=== PATIENT | female | born 1945 | race Caucasian/White ===

== ENCOUNTER 2016-03-04 14:38 | Emergency (ER) | payer MEDICARE, OTHER ==
--- NOTE | 2016-03-04 15:11 | ERPHSYRPT ---
- History of Present Illness Time Seen by Provider: 03/04/16 15:04 Source: patient Exam Limitations: no limitations Patient Subjective Stated Complaint: PT REPORTS N/V/D BEGINNING SATURDAY-REPORTS HEADACHE BEGINNING PATRICIA SAME TIME-STATES SHE HASN'T KEPT ANYTHING DOWN Triage Nursing Assessment: PT PINK WARM ET DRY-A & O-MOVING ALL EXTREMITIES WITH EASE-RESP EASY ET NONLABORED Physician History: The patient is a 70-year-old female who complains of nausea vomiting and diarrhea for 2 days. She also has a FALL. At times the pt is light-headed. Her grandchildren were also sick with similar symptoms earlier in the week. She thinks she caught it from them. Now her is also sick with similar symptoms. She has vomited numerous times yesterday and today. She had diarrhea yesterday but it has slowed down significantly today. She has not taken any of her medicines yesterday or today because of the vomiting. She has not been able to eat or drink much. Her past medical history is significant for hypothyroidism, hyper cholesterolemia, hypertension, and diabetes. Timing/Duration: day(s) (2), sudden Severity: severe Modifying Factors: Improves With: eating Associated Symptoms: nausea, vomiting, headaches Allergies/Adverse Reactions: No Known Drug Allergies Allergy (Unverified 03/04/16 14:48) Home Medications: Amlodipine Besylate 10 mg [Norvasc 10 MG] 10 mg PO DAILY 03/04/16 [History] Aspirin 81 mg PO DAILY 03/04/16 [History] Budesonide/Formoterol Fumarate [Symbicort 80-4.5 Mcg Inhaler] 6.9 gm IH UD 03/04 [History] Codeine/Butalbital/ASA/Caffein [Butalbital Comp-Codeine #3 Cap] 1 each PO UD 10/11 [History] Cyclobenzaprine HCl 10 mg PO UD 03/04/16 [History] Docusate Sodium 100 mg [Colace 100 MG] 100 mg PO BID 03/04/16 [History] Estradiol [Estrace] 0.5 mg PO DAILY 03/04/16 [History] Fluoxetine HCl [Prozac] 20 mg PO DAILY 03/04/16 [History] Glipizide 10 mg [Glucotrol 10 MG] 10 mg PO DAILY 03/04/16 [History] Isosorbide Mononitrate 30 mg [Imdur 30 MG] 30 mg PO DAILY 03/04/16 [History ] Levothyroxine Sodium [Synthroid] 125 mcg PO DAILY 03/04/16 [History] Meloxicam 7.5 mg [Mobic 7.5 MG] 7.5 mg PO UD 03/04/16 [History] Metformin HCl Xr 500 mg [Glucophage XR 500 MG] 500 mg PO DAILY 03/04/16 [ History] Metoprolol Tartrate 25 mg [Lopressor 25MG Tab] 25 mg PO DAILY 03/04/16 [ History] Polyethylene Glycol 3350 17 gm [Miralax Powder 17GM PACKET] 17 gm PO DAILY [History] Pregabalin [Lyrica] 75 mg PO BID 03/04/16 [History] Simvastatin 40 mg [Zocor 40 mg] 40 mg PO DAILY 03/04/16 [History] Tramadol HCl 50 mg [Ultram 50 mg] 50 mg PO UD 03/04/16 [History] Verapamil HCl Sr 240 mg [Isoptin S.r. 240 mg] 240 mg PO DAILY 03/04/16 [ History] Hx Tetanus, Diphtheria Vaccination/Date Given: No Hx Influenza Vaccination/Date Given: Yes Hx Pneumococcal Vaccination/Date Given: Yes Immunizations Up to Date: Yes - Review of Systems Constitutional: No Fever, No Chills Eyes: No Symptoms Ears, Nose, & Throat: No Symptoms Respiratory: No Cough, No Dyspnea Cardiac: No Chest Pain, No Edema, No Syncope Abdominal/Gastrointestinal: Nausea, Vomiting, Diarrhea Genitourinary Symptoms: No Dysuria Musculoskeletal: No Back Pain, No Neck Pain Skin: No Rash Neurological: No Dizziness, No Focal Weakness, No Sensory Changes Psychological: No Symptoms Endocrine: No Symptoms Hematologic/Lymphatic: No Symptoms Immunological/Allergic: No Symptoms All Other Systems: Reviewed and Negative - Past Medical History Pertinent Past Medical History: Yes Cardiac History: Hypertension, Myocardial Infarction (HI) Endocrine Medical History: Diabetes Type II - Past Surgical History Past Surgical History: Yes Cardiac: Cardiac Stent Musculoskeletal: Orthopedic Surgery Female Surgical History: Hysterectomy - Social History Smoking Status: Never smoker Exposure to second hand smoke: No Drug Use: none Patient Lives Alone: No - Nursing Vital Signs Nursing Vital Signs: Initial Vital Signs Temperature 97.9 F Temperature Source Oral Pulse Rate 85 Respiratory Rate 16 Blood Pressure 133/80 Pain Intensity 0 - Physical Exam General Appearance: no apparent distress, alert Eye Exam: PERRL/EOMI, eyes nml inspection Ears, Nose, Throat Exam: normal ENT inspection, TMs normal, pharynx normal, moist mucous membranes Neck Exam: normal inspection, non-tender, supple, full range of motion Respiratory Exam: normal breath sounds, lungs clear, No respiratory distress Cardiovascular Exam: regular rate/rhythm, normal heart sounds, normal peripheral pulses Gastrointestinal/Abdomen Exam: other (BS hyperactive) Pelvic Exam: not done Rectal Exam: not done Back Exam: normal inspection, normal range of motion, No CVA tenderness, No vertebral tenderness Extremity Exam: normal inspection, normal range of motion, pelvis stable Neurologic Exam: alert, oriented x 3, cooperative, normal mood/affect, nml cerebellar function, nml station & gait, sensation nml, No motor deficits Skin Exam: normal color, warm, dry, No rash Lymphatic Exam: No adenopathy SpO2 Interpretation: normal SpO2: 96 Oxygen Delivery: Room Air Ordered Tests: Active Orders 24 hr Category Date Time Status IV Insertion STAT Care 03/04/16 15:15 Active CBC W DIFF Stat Lab 03/04/16 15:25 Completed CMP Stat Lab 03/04/16 15:25 Completed UA W/ MICROSCOPIC Stat Lab 03/04/16 16:40 Results Medication Summary Discontinued Medications Generic Name Dose Route Start Last Admin Trade Name Bell PRN Reason Stop Dose Admin Sodium Chloride 1,000 mls @ 999 mls/hr 03/04/16 15:15 03/04/16 15:26 Sodium Chloride 0.9% 1000 Ml IV 03/04/16 16:15 999 mls/hr .Q1H1M STA Administration Sodium Chloride Confirm 03/04/16 15:23 Sodium Chloride 0.9% 1000 Ml Administered 03/04/16 15:24 Dose 1,000 mls @ ud .ROUTE .STK-MED ONE Ketorolac Tromethamine 15 mg 03/04/16 15:15 03/04/16 15:27 Toradol 30 Mg Injection IV 03/04/16 15:16 15 mg STAT ONE Administration Ketorolac Tromethamine Confirm 03/04/16 15:23 Toradol 30 Mg Injection Administered 03/04/16 15:24 Dose 30 mg .ROUTE .STK-MED ONE Ondansetron HCl 4 mg 03/04/16 15:15 03/04/16 15:26 Zofran 4 Mg/2 Ml Vial IV 03/04/16 15:16 4 mg STAT ONE Administration Ondansetron HCl Confirm 03/04/16 15:23 Zofran 4 Mg/2 Ml Vial Administered 03/04/16 15:24 Dose 4 mg .ROUTE .STK-MED ONE Lab/Rad Data: Laboratory Result Diagrams 03/04/16 15:25 03/04/16 15:25 Laboratory Results 03/04/16 03/04/16 03/04/16 Range/Units 16:40 15:25 15:25 WBC 10.5 (4.0-10.5) K/mm3 RBC 4.75 (4.1-5.4) M/mm3 Hgb 14.0 (12.0-16.0) gm/dl Hct 43.4 (35-47) % MCV 91.4 (78-100) fl MCH 29.5 (26-32) pg MCHC 32.3 (32-36) g/dl RDW 13.9 (11.5-14.0) % Plt Count 153 (150-450) K/mm3 MPV 12.9 H (6-9.5) fl Gran % 72.6 H (36.0-66.0) % Lymphocytes % 14.2 L (24.0-44.0) % Monocytes % 12.9 H (0.0-12.0) % Eosinophils % 0.2 (0.00-5.0) % Basophils % 0.1 (0.0-0.4) % Basophils # 0.01 (0-0.4) Sodium 139 (136-145) mEq/L Potassium 3.7 (3.5-5.1) mEq/L Chloride 101 (98-107) mEq/L Carbon Dioxide 27.9 (21-32) mEq/L Anion Gap 14.1 (5-15) MEQ/L BUN 24 H (9-20) mg/dL Creatinine 1.17 (0.55-1.30) mg/dl Estimated GFR 48 ML/MIN Glucose 122 H (70-110) MG/DL Calcium 8.7 (8.5-10.1) mg/dL Total Bilirubin 0.4 (0.2-1.0) mg/dL AST 30 (15-37) U/L ALT 27 (12-78) U/L Alkaline Phosphatase 56 (46-116) U/L Serum Total Protein 7.9 (6.4-8.2) gm/dL Albumin 4.2 (3.4-5.0) g/dL Ur Collection Type CLEAN CATCH Urine Color YELLOW (YELLOW) Urine Appearance CLEAR (CLEAR) Urine pH 6.0 (5-6) Ur Specific [place] 1.020 (1.005-1.025) Urine Protein NEGATIVE (Negative) Urine Glucose (UA) NEGATIVE (NEGATIVE) mg/dL Urine Ketones NEGATIVE (NEGATIVE) Urine Nitrite NEGATIVE (NEGATIVE) Urine Bilirubin NEGATIVE (NEGATIVE) Urine Urobilinogen 0.2 (0-1) mg/dL Urine WBC (Auto) MODERATE (NEGATIVE) Urine RBC (Auto) TRACE HEMOLYZED (0-5) Gabriele/ul Urine Microscopic WBC 5-10 (0-5) /HPF Ur Epithelial Cells FEW (FEW) /HPF Urine Bacteria FEW (NEGATIVE) /HPF Specimen Received 03/04/16:1640 - Progress Progress: improved Progress Note: 03/04/16 16:58 After NS 1000 ml and zofran 4 mg IV, pt is feeling better. Counseled pt/family regarding: lab results, diagnosis - Departure Time of Disposition: 17:01 Departure Disposition: Home Clinical Impression: Gastroenteritis Condition: Stable Critical Care Time: No Additional Instructions: If nausea and/or vomiting returns tonight, you may take another zofran that we have sent home with you.
[2016-03-04] MEDS ORDERED: TORAdol 30 mg Injection IV ONE (15:15)
[2016-03-04] MEDS ORDERED: Zofran 4 MG/2 ML VIAL IV ONE ×2 (15:15→16:58)
[2016-03-04] MEDS ORDERED: Sodium Chloride 0.9% 1000 ML 1,000 ML IV STA (15:15)
[2016-03-04] MEDS ORDERED: TORAdol 30 mg Injection ONE (15:23)
[2016-03-04] MEDS ORDERED: Sodium Chloride 0.9% 1000 ML 1,000 ML ONE (15:23)
[2016-03-04] MEDS ORDERED: Zofran 4 MG/2 ML VIAL ONE ×2 (15:23→16:58)
[2016-03-04 15:31] LABS: BASOPHIL % 0.1 % (0.0-0.4); Eosinophil % 0.2 % (0.00-5.0); Granulocytes % 72.6 % (36.0-66.0); Lymphocytes % 14.2 % (24.0-44.0); Mean Cell Volume 91.4 fl (78-100); Mean Corpuscular Hemoglobin 29.5 pg (26-32); Mean Platelet Volume 12.9 fl (6-9.5); Monocytes % 12.9 % (0.0-12.0); Platelet Count 153 K/mm3 (150-450); Red Blood Count 4.75 M/mm3 (4.1-5.4); Red Cell Distribution Width 13.9 % (11.5-14.0); White Blood Count 10.5 K/mm3 (4.0-10.5)
[2016-03-04 15:55] LABS: ALBUMIN 4.2 g/dL (3.4-5.0); ANION GAP 14.1 MEQ/L (5-15); BILIRUBIN,TOTAL 0.4 mg/dL (0.2-1.0); Carbon Dioxide 27.9 mEq/L (21-32); Potassium 3.7 mEq/L (3.5-5.1); Total Protein 7.9 gm/dL (6.4-8.2)
[2016-03-04 16:50] LABS: COMPLETE URINE MICROSCOPIC? YES; Collection Type CLEAN CATCH
[2016-03-04 16:51] LABS: Bacteria FEW /HPF (NEGATIVE); Epithelial Cells FEW /HPF (FEW)
[2016-03-04] MEDS ORDERED: ZOFRAN ODT 4 MG PO ONE (16:59)
[2016-03-04] MEDS ORDERED: ZOFRAN ODT 4 MG ONE (17:01)
[2016-03-04 17:11] VITALS: BP 129/70; PULSE 79; O2SAT 97
== END 2016-03-04 17:10 | disposition home or self-care (01) ==
LOC: ED 14:38
DX: K52.9 Noninfective gastroenteritis and colitis, unspecified (principal); R51 Headache; R11.2 Nausea with vomiting, unspecified; R19.7 Diarrhea, unspecified; I10 Essential (primary) hypertension; I25.2 Old myocardial infarction; E11.9 Type 2 diabetes mellitus without complications
CPT/HCPCS: 36000; 36415; 80053; 81000; 85025; 96360; 96374; 96375; 99283; J1885; J2405; Q0162

== ENCOUNTER 2016-12-15 13:32 | Emergency (ER) | payer MEDICARE, OTHER ==
[2016-12-15 13:52] VITALS: PULSE 82
[2016-12-15 14:27] LABS: Collection Type CCMS
[2016-12-15 14:28] LABS: Bilirubin NEGATIVE (NEGATIVE); Blood 50 Ery/ul (0-5); COMPLETE URINE MICROSCOPIC? YES; Glucose NEGATIVE (NEGATIVE); Leukocyte Esterase TRACE (NEGATIVE)
[2016-12-15 14:29] LABS: BASOPHIL % 0.3 % (0.0-0.4); Eosinophil % 0.3 % (0.00-5.0); Granulocytes % 82.2 % (36.0-66.0); Lymphocytes % 8.5 % (24.0-44.0); Mean Cell Volume 92.3 fl (78-100); Mean Corpuscular Hemoglobin 30.5 pg (26-32); Mean Platelet Volume 12.3 fl (6-9.5); Monocytes % 8.7 % (0.0-12.0); Platelet Count 188 K/mm3 (150-450); Red Blood Count 4.69 M/mm3 (4.1-5.4); Red Cell Distribution Width 13.2 % (11.5-14.0); White Blood Count 11.2 K/mm3 (4.0-10.5)
--- NOTE | 2016-12-15 14:36 | ERPHSYRPT ---
- History of Present Illness Time Seen by Provider: 12/15/16 13:42 Source: patient Patient Subjective Stated Complaint: PT states "I have been constipated for the past three days. I usually go every other day and now my stomach hurts and I am straining so hard and still cannot go. I have taken suppository and senokot last night and still nothing." Triage Nursing Assessment: Pt alert and oriented X 3, skin pwd. Pt ambulates with a steady upright gait, able to speak in clear full sentences. Physician History: CC: constipation Hx: 71 y/o patient of Dr moreno with hx of hypothyroidism. She has constipation for the past 3-4 days. Straining to have BM. No N/V. No abdominal pain. No fever or chills. She uses stool softeners and she has tried glycerin supp without success. Drove herself to ER. Timing/Duration: day(s) (3-4) Severity: mild, moderate Allergies/Adverse Reactions: No Known Drug Allergies Allergy (Unverified 03/04/16 14:48) Home Medications: Amlodipine Besylate 10 mg [Norvasc 10 MG] 10 mg PO DAILY 03/04/16 [History] Aspirin 81 mg PO DAILY 03/04/16 [History] Budesonide/Formoterol Fumarate [Symbicort 80-4.5 Mcg Inhaler] 6.9 gm IH UD 03/04 [History] Docusate Sodium 100 mg [Colace 100 MG] 100 mg PO BID 03/04/16 [History] Estradiol [Estrace] 0.5 mg PO DAILY 03/04/16 [History] Fluoxetine HCl [Prozac] 20 mg PO DAILY 03/04/16 [History] Glipizide 10 mg [Glucotrol 10 MG] 10 mg PO DAILY 03/04/16 [History] Isosorbide Mononitrate 30 mg [Imdur 30 MG] 30 mg PO DAILY 03/04/16 [History ] Levothyroxine Sodium [Synthroid] 125 mcg PO DAILY 03/04/16 [History] Meloxicam 7.5 mg [Mobic 7.5 MG] 7.5 mg PO UD 03/04/16 [History] Metformin HCl Xr 500 mg [Glucophage XR 500 MG] 500 mg PO DAILY 03/04/16 [ History] Metoprolol Tartrate 25 mg [Lopressor 25MG Tab] 25 mg PO DAILY 03/04/16 [ History] Polyethylene Glycol 3350 17 gm [Miralax Powder 17GM PACKET] 17 gm PO DAILY [History] Simvastatin 40 mg [Zocor 40 mg] 40 mg PO DAILY 03/04/16 [History] Tramadol HCl 50 mg [Ultram 50 mg] 50 mg PO UD 03/04/16 [History] Verapamil HCl Sr 240 mg [Isoptin S.r. 240 mg] 240 mg PO DAILY 03/04/16 [ History] Calcium Carb, Citrate/Vit D3 [Calcium + D3 ER Tablet] 1 each PO DAILY 12/15/16 [ History] Hx Tetanus, Diphtheria Vaccination/Date Given: No Hx Influenza Vaccination/Date Given: Yes Hx Pneumococcal Vaccination/Date Given: Yes Immunizations Up to Date: Yes - Review of Systems Constitutional: No Fever, No Chills Eyes: No Symptoms Ears, Nose, & Throat: No Symptoms Respiratory: No Cough Cardiac: No Chest Pain Abdominal/Gastrointestinal: Constipation, No Abdominal Pain, No Nausea, No Vomiting, No Diarrhea Genitourinary Symptoms: No Dysuria Musculoskeletal: No Symptoms All Other Systems: Reviewed and Negative - Past Medical History Pertinent Past Medical History: Yes Neurological History: No Pertinent History Cardiac History: Arrhythmia, Coronary Artery Disease, Hypertension, Myocardial Infarction (ME) Respiratory History: Bronchitis Endocrine Medical History: Diabetes Type II, Hypothyroidism Musculoskeletal History: Osteoarthritis, Other Other Medical History: PT. HAD STENTS 5-6 YEARS AGO. PT. REPORTS SHE HAS ANGINA OCCASIONALLY. PT. SUSTAINED VERTEBRAL FXS IN 1985. HX L-SPINE OA. - Past Surgical History Past Surgical History: Yes Cardiac: Cardiac Stent Musculoskeletal: Orthopedic Surgery Female Surgical History: Hysterectomy - Social History Smoking Status: Former smoker Exposure to second hand smoke: No Drug Use: none Patient Lives Alone: No - Female History Hx Last Menstrual Period: histerectomy - Nursing Vital Signs Nursing Vital Signs: Initial Vital Signs Temperature 97.6 F 12/15/16 13:45 Pulse Rate 82 12/15/16 13:45 Respiratory Rate 16 12/15/16 13:45 Blood Pressure 154/86 12/15/16 13:45 O2 Sat by Pulse Oximetry 96 12/15/16 13:45 Pain Scale Pain Intensity 7 - Physical Exam General Appearance: alert, other (pleasant lady) Eye Exam: PERRL/EOMI Ears, Nose, Throat Exam: normal ENT inspection, moist mucous membranes Neck Exam: normal inspection, non-tender, supple Respiratory Exam: normal breath sounds Cardiovascular Exam: regular rate/rhythm Gastrointestinal/Abdomen Exam: soft, No tenderness, No distention, No mass, No guarding Pelvic Exam: not done Rectal Exam: normal exam, normal rectal tone, other (no stool in the vault, no impaction), No mass, No hemorrhoids Extremity Exam: normal inspection, normal range of motion Neurologic Exam: alert, oriented x 3, cooperative Skin Exam: warm, dry SpO2 Interpretation: normal SpO2: 96 Oxygen Delivery: Room Air - Course Nursing assessment & vital signs reviewed: Yes - Radiology Exams AAS X-ray Interpretation: Reviewed by me (No free air, no obstr, constipation with large stool burden) Ordered Tests: Active Orders 24 hr Category Date Time Status Clean Catch Urine Specimen STAT Care 12/15/16 14:12 Active OBSTR/ACUTE ABDOMEN SERIES Stat Exams 12/15/16 14:12 Taken CBC W DIFF Stat Lab 12/15/16 14:20 Completed CMP Stat Lab 12/15/16 14:20 Completed CULTURE,URINE Stat Lab 12/15/16 14:20 Received UA W/ MICROSCOPIC Stat Lab 12/15/16 14:20 Completed Lab/Rad Data: Laboratory Result Diagrams 12/15/16 14:20 12/15/16 14:20 Laboratory Results 12/15/16 12/15/16 12/15/16 Range/Units 14:20 14:20 14:20 WBC 11.2 H (4.0-10.5) K/mm3 RBC 4.69 (4.1-5.4) M/mm3 Hgb 14.3 (12.0-16.0) gm/dl Hct 43.3 (35-47) % MCV 92.3 (78-100) fl MCH 30.5 (26-32) pg MCHC 33.0 (32-36) g/dl RDW 13.2 (11.5-14.0) % Plt Count 188 (150-450) K/mm3 MPV 12.3 H (6-9.5) fl Gran % 82.2 H (36.0-66.0) % Lymphocytes % 8.5 L (24.0-44.0) % Monocytes % 8.7 (0.0-12.0) % Eosinophils % 0.3 (0.00-5.0) % Basophils % 0.3 (0.0-0.4) % Basophils # 0.03 (0-0.4) Sodium 140 (136-145) mEq/L Potassium 3.5 (3.5-5.1) mEq/L Chloride 102 (98-107) mEq/L Carbon Dioxide 29.0 (21-32) mEq/L Anion Gap 12.8 (5-15) MEQ/L BUN 23 H (9-20) mg/dL Creatinine 1.42 H (0.55-1.30) mg/dl Estimated GFR 39 ML/MIN Glucose 172 H (70-110) MG/DL Calcium 9.1 (8.5-10.1) mg/dL Total Bilirubin 0.30 (0.2-1.0) mg/dL AST 17 (15-37) U/L ALT 21 (12-78) U/L Alkaline Phosphatase 63 (46-116) U/L Serum Total Protein 7.5 (6.4-8.2) gm/dL Albumin 4.1 (3.4-5.0) g/dL Ur Collection Type CCMS Urine Color YELLOW (YELLOW) Urine Appearance CLEAR (CLEAR) Urine pH 5.0 (5-6) Ur Specific [place] 1.020 (1.005-1.025) Urine Protein NEGATIVE (Negative) Urine Ketones NEGATIVE (NEGATIVE) Urine Blood 50 (0-5) Gabriele/ul Urine Nitrite NEGATIVE (NEGATIVE) Urine Bilirubin NEGATIVE (NEGATIVE) Urine Urobilinogen NORMAL (0-1) mg/dL Ur Leukocyte Esterase TRACE (NEGATIVE) Urine Microscopic RBC 0-2 (0-2) /HPF Urine Microscopic WBC 10-15 (0-5) /HPF Ur Epithelial Cells FEW (FEW) /HPF Urine Bacteria MODERATE (NEGATIVE) /HPF Urine Mucus SLIGHT (NEGATIVE) /HPF Urine Culture Reflexed YES (NO) Urine Glucose NEGATIVE (NEGATIVE) mg/dL Specimen Received 1420 12/15/16 - Progress Progress Note: 12/15/16 15:44 No abd tenderness on recheck exam. Has some cramping. She needs bowel regiment. Will use mag citrate tonite. Will start miralax and metamucil regimen with prune juice- instr given. 12/15/16 15:48 She has pyuria on voided specimen but no UTI symptoms. She wants to wait on culture. Counseled pt/family regarding: lab results, diagnosis, need for follow-up, rad results - Departure Time of Disposition: 15:45 Departure Disposition: Home Clinical Impression: Constipation Qualifiers: Constipation type: unspecified constipation type Qualified Code(s): K59.00 - Constipation, unspecified Condition: Stable Critical Care Time: No Referrals: ANJELICA MORENO MD [Primary Care Provider] - Instructions: Constipation Additional Instructions: Use one bottle mag citrate tonite. Evening bowel regimen for bedtime: Start tonite with 1 cap miralax in prune juice/water nightly. After bowels working, add increasingly small amount of metamucil to the mixture nightly. After going well, gradually decrease the miralax as able. Follow up with Dr moreno this week. Return for abdominal pain, vomiting, fever. Urine culture is pending.
[2016-12-15 14:46] LABS: ALBUMIN 4.1 g/dL (3.4-5.0); ANION GAP 12.8 MEQ/L (5-15); BILIRUBIN,TOTAL 0.3 mg/dL (0.2-1.0); Potassium 3.5 mEq/L (3.5-5.1); Total Protein 7.5 gm/dL (6.4-8.2)
[2016-12-15 14:54] LABS: Mucus SLIGHT /HPF (NEGATIVE)
[2016-12-15 14:55] LABS: ADD URINE CULTURE? YES (NO); Bacteria MODERATE /HPF (NEGATIVE); Epithelial Cells FEW /HPF (FEW)
[2016-12-15] MEDS ORDERED: CITROMA 296 ML PO ONE (15:44)
[2016-12-15] MEDS ORDERED: CITROMA 296 ML ONE (15:51)
[2016-12-15 15:54] VITALS: BP 137/75; O2SAT 95
--- NOTE | 2016-12-15 19:53 | XRAY ---
Indication: Constipation. Comparison: January 24, 2010 2 views of the abdomen now demonstrates moderate diffuse scattered colonic fecal debris throughout. No focal bowel dilatation or obstruction. Calcified splenic granulomas. Remaining solid organs and osseous structures unremarkable. Single PA chest again demonstrates normal heart, lungs, and bony thorax with a few incidental calcified granulomas. New small hiatal hernia. Impression: 1. Fecal stasis without obstruction. 2. Nonacute 1 view chest with new hiatal hernia. 3. Again evidence for old granulomatous disease.
== END 2016-12-15 16:04 | disposition home or self-care (01) ==
LOC: ED 13:32
DX: K59.00 Constipation, unspecified (principal); I10 Essential (primary) hypertension; Z79.899 Other long term (current) drug therapy
CPT/HCPCS: 36415; 74022; 80053; 81000; 85025; 87086; 99283; 99284; A9270-GY

== ENCOUNTER 2020-05-29 09:37 | Emergency (ER) | payer MEDICARE, OTHER ==
[2020-05-29] MEDS ORDERED: Zofran 4 MG/2 ML VIAL IV ONE (09:56)
[2020-05-29] MEDS ORDERED: MORPHINE SULFATE 2 MG INJ IV ONE (09:56)
[2020-05-29] MEDS ORDERED: Sodium Chloride 0.9% 1000 ML 1,000 ML IV STA (09:56)
[2020-05-29] MEDS ORDERED: Zofran 4 MG/2 ML VIAL ONE (10:00)
[2020-05-29] MEDS ORDERED: MORPHINE SULFATE 2 MG INJ ONE (10:01)
[2020-05-29] MEDS ORDERED: Sodium Chloride 0.9% 1000 ML 1,000 ML ONE (10:01)
[2020-05-29 10:15] LABS: Absolute Neutrophil Ct (ANC) 4.66 (1.4-6.9); BASOPHIL % 0.3 % (0.0-0.4); Basophil (Absolute #) 0.02 (0-0.4); Eosinophil % 0.7 % (0.00-5.0); Eosinophil (Absolute #) 0.05 (0-0.5); Hematocrit 43.8 % (35-47); Lymphocyte (Absolute #) 1.62 (1.0-4.6); Mean Cell Volume 100.7 fl (78-100); Mean Corpuscular Hemoglobin 34.5 pg (26-32); Mean Corpuscular Hgb Concent. 34.2 g/dl (32-36); Mean Platelet Volume 11.5 fl (7.5-11.0); Monocyte (Absolute #) 0.69 (0.0-1.3); Monocytes % 9.8 % (0.0-12.0); Neutrophil % 66.2 % (36.0-66.0); Platelet Count 200 K/mm3 (150-450); Red Blood Count 4.35 M/mm3 (4.1-5.4); Red Cell Distribution Width 12.4 % (11.5-14.0)
[2020-05-29 10:27] LABS: ALBUMIN 4.5 g/dL (3.5-5.0); ALKALINE PHOSPHATASE 120 U/L (38-126); ANION GAP 14.1 MEQ/L (5-15); BLOOD UREA NITROGEN 16 mg/dL (7-17); CHLORIDE 101 mmol/L (98-107); Calcium 9.9 mg/dL (8.4-10.2); Carbon Dioxide 27 mmol/L (22-30); Creatinine 1 0.93 mg/dL (0.52-1.04); EST GLOMERULAR FILTRATION RATE > 60.0 ML/MIN; Glucose 133 mg/dL (74-106); LIPASE 59 U/L (23-300); Potassium 4.4 mmol/L (3.5-5.1); SGOT/AST 56 U/L (14-36); SGPT/ALT 53 U/L (0-35); SODIUM 138 mmol/L (137-145); Total Protein 7.2 g/dL (6.3-8.2)
[2020-05-29 10:36] LABS: Appearance SLIGHTLY CLOUDY (CLEAR); Bilirubin NEGATIVE (NEGATIVE); Blood NEGATIVE Ery/ul (0-5); Calcium Oxalate Crystals 26-50 /HPF (NEGATIVE); Epithelial Cells RARE /HPF (FEW); Glucose NEGATIVE (NEGATIVE); Ketones NEGATIVE (NEGATIVE); Leukocyte Esterase NEGATIVE (NEGATIVE); Mucus SLIGHT /HPF (NEGATIVE); Nitrite NEGATIVE (NEGATIVE); Protein,Urine Dip 30 (Negative); RBC 0-2 /HPF (0-2); Specific Gravity 1.031 (1.005-1.025); Urobilinogen NEGATIVE mg/dL (0-1)
[2020-05-29 12:23] VITALS: BP 159/90; PULSE 80; O2SAT 96
--- NOTE | 2020-05-29 12:30 | ERPHSYRPT ---
- History of Present Illness Time Seen by Provider: 05/29/20 09:51 Historian: patient Exam Limitations: no limitations Patient Subjective Stated Complaint: pt here for no BM for 3 days , she has tried enema and mirilax Triage Nursing Assessment: pt alert, resp easy,face mask in palce, stat es vomited today, co abd pain generalized, abd soft, Physician History: 74 years old female with a history of coronary artery disease status post stenting, hypertension, hyperlipidemia presented in the ER with chief complaint of constipation and right sided abdominal pain for the last 3 days. Patient reports she has been unable to go and has tried MiraLAX and enema with no relief. Patient reports dull aching pain in the right lower quadrant without any significant aggravating or relieving factor, moderate intensity, associated with mild nausea but no vomiting. Denies any fever or chills. Patient reports having bouts of diarrhea before she got constipated. No weight loss. Timing/Duration: day(s) (3), gradual onset, worse Activities at Onset: rest Quality: dullness Abdominal Pain Onset Location: RLQ, periumbilical Pain Radiation: no radiation Severity of Pain-Max: moderate Severity of Pain-Current: moderate Modifying Factors: Improves With: nothing Associated Symptoms: denies symptoms Previous symptoms: no prior history Allergies/Adverse Reactions: No Known Drug Allergies Allergy (Verified 05/29/20 09:49) Home Medications: Amlodipine Besylate 10 mg [Norvasc 10 MG] 10 mg PO DAILY 03/04/16 [History] Aspirin 81 mg PO DAILY 03/04/16 [History] Budesonide/Formoterol Fumarate [Symbicort 80-4.5 Mcg Inhaler] 6.9 gm IH UD 03/04/16 [History] Docusate Sodium 100 mg [Colace 100 MG] 100 mg PO BID 03/04/16 [History] Estradiol [Estrace] 0.5 mg PO DAILY 03/04/16 [History] Fluoxetine HCl [Prozac] 20 mg PO DAILY 03/04/16 [History] Glipizide 10 mg [Glucotrol 10 MG] 10 mg PO DAILY 03/04/16 [History] Isosorbide Mononitrate 30 mg [Imdur 30 MG] 30 mg PO DAILY 03/04/16 [History] Levothyroxine Sodium [Synthroid] 125 mcg PO DAILY 03/04/16 [History] Meloxicam 7.5 mg [Mobic 7.5 MG] 7.5 mg PO UD 03/04/16 [History] Metformin HCl Xr 500 mg [Glucophage XR 500 MG] 500 mg PO DAILY 03/04/16 [ History] Metoprolol Tartrate 25 mg [Lopressor 25MG Tab] 25 mg PO DAILY 03/04/16 [History] Polyethylene Glycol 3350 17 gm [Miralax Powder 17GM PACKET] 17 gm PO DAILY 03/04/16 [History] Simvastatin 40 mg [Zocor 40 mg] 40 mg PO DAILY 03/04/16 [History] Tramadol HCl 50 mg [Ultram 50 mg] 50 mg PO UD 03/04/16 [History] Verapamil HCl Sr 240 mg [Isoptin S.r. 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 - Vaccination Dates Date of 2cond Vaccination (if applicable): mar - Review of Systems Constitutional: No Symptoms Eyes: No Symptoms Ears, Nose, & Throat: No Symptoms Respiratory: No Symptoms Cardiac: No Symptoms Abdominal/Gastrointestinal: Abdominal Pain, Nausea, Constipation Genitourinary Symptoms: No Symptoms Musculoskeletal: No Symptoms Skin: No Symptoms Neurological: No Symptoms Psychological: No Symptoms Endocrine: No Symptoms Hematologic/Lymphatic: No Symptoms Immunological/Allergic: No Symptoms - Past Medical History Pertinent Past Medical History: Yes Neurological History: No Pertinent History Cardiac History: Arrhythmia, Coronary Artery Disease, Hypertension, Myocardial Infarction ([place]) Respiratory History: Bronchitis Endocrine Medical History: Diabetes Type II, Hypothyroidism Musculoskeletal History: Osteoarthritis, Other Other Medical History: PT. HAD STENTS 5-6 YEARS AGO. PT. REPORTS SHE HAS ANGINA OCCASIONALLY. PT. SUSTAINED VERTEBRAL FXS IN 1985. HX L-SPINE OA. - Past Surgical History Past Surgical History: Yes Cardiac: Cardiac Stent Gastrointestinal: Cholecystectomy Musculoskeletal: Orthopedic Surgery Female Surgical History: Hysterectomy - Social History Smoking Status: Never smoker Exposure to second hand smoke: No Drug Use: none Patient Lives Alone: No - Female History Hx Last Menstrual Period: post - Nursing Vital Signs Nursing Vital Signs: Initial Vital Signs Temperature 97.6 F 05/29/20 10:14 Pulse Rate 96 H 05/29/20 10:14 Blood Pressure 199/91 05/29/20 10:14 O2 Sat by Pulse Oximetry 98 05/29/20 10:14 Pain Scale Pain Intensity 9 - Physical Exam General Appearance: no apparent distress Eye Exam: PERRL/EOMI, eyes nml inspection Ears, Nose, Throat Exam: normal ENT inspection, pharynx normal Neck Exam: normal inspection, non-tender, full range of motion Respiratory Exam: normal breath sounds, lungs clear Cardiovascular Exam: regular rate/rhythm, normal heart sounds Gastrointestinal/Abdomen Exam: soft, normal bowel sounds, tenderness, guarding (Right lower quadrant), No rebound Back Exam: normal inspection, normal range of motion Extremity Exam: normal inspection Neurologic Exam: alert, oriented x 3, cooperative Skin Exam: normal color SpO2 Interpretation: normal SpO2: 96 O2 Delivery: Room Air Ordered Tests: Active Orders 24 hr Category Date Time Status IV Insertion STAT Care 05/29/20 09:56 Active ABDOMEN AND PELVIS W CONTRAST [CT] Stat Exams 05/29/20 09:56 Taken CBC W DIFF Stat Lab 05/29/20 10:05 Completed CMP Stat Lab 05/29/20 10:05 Completed LIPASE Stat Lab 05/29/20 10:05 Completed UA W/RFX UR CULTURE Stat Lab 05/29/20 10:05 Completed Medication Summary Discontinued Medications Generic Name Dose Route Start Last Admin Trade Name Freq PRN Reason Stop Dose Admin Sodium Chloride 1,000 mls @ 500 mls/hr 05/29/20 09:56 05/29/20 12:02 Sodium Chloride 0.9% 1000 Ml IV 05/29/20 11:55 Infused .Q2H STA Infusion Sodium Chloride Confirm 05/29/20 10:01 Sodium Chloride 0.9% 1000 Ml Administered 05/29/20 10:02 Dose 1,000 mls @ ud .ROUTE .STK-MED ONE Morphine Sulfate 2 mg 05/29/20 09:56 05/29/20 10:03 Morphine Sulfate 2 Mg Inj IV 05/29/20 09:57 2 mg STAT ONE Administration Morphine Sulfate Confirm 05/29/20 10:01 Morphine Sulfate 2 Mg Inj Administered 05/29/20 10:02 Dose 2 mg .ROUTE .STK-MED ONE Ondansetron HCl 4 mg 05/29/20 09:56 05/29/20 10:03 Zofran 4 Mg/2 Ml Vial IV 05/29/20 09:57 4 mg STAT ONE Administration Ondansetron HCl Confirm 05/29/20 10:00 Zofran 4 Mg/2 Ml Vial Administered 05/29/20 10:01 Dose 4 mg .ROUTE .STK-MED ONE Lab/Rad Data: Laboratory Result Diagrams 05/29/20 10:05 05/29/20 10:05 Laboratory Results 05/29/20 05/29/20 05/29/20 Range/Units 10:05 10:05 10:05 WBC 7.0 (4.0-10.5) K/mm3 RBC 4.35 (4.1-5.4) M/mm3 Hgb 15.0 (12.0-16.0) gm/dl Hct 43.8 (35-47) % MCV 100.7 H (78-100) fl MCH 34.5 H (26-32) pg MCHC 34.2 (32-36) g/dl RDW 12.4 (11.5-14.0) % Plt Count 200 (150-450) K/mm3 MPV 11.5 H (7.5-11.0) fl Gran % 66.2 H (36.0-66.0) % Eos # (Auto) 0.05 (0-0.5) Absolute Lymphs (auto) 1.62 (1.0-4.6) Absolute Monos (auto) 0.69 (0.0-1.3) Lymphocytes % 23.0 L (24.0-44.0) % Monocytes % 9.8 (0.0-12.0) % Eosinophils % 0.7 (0.00-5.0) % Basophils % 0.3 (0.0-0.4) % Absolute Granulocytes 4.66 (1.4-6.9) Basophils # 0.02 (0-0.4) Sodium 138 (137-145) mmol/L Potassium 4.4 (3.5-5.1) mmol/L Chloride 101 (98-107) mmol/L Carbon Dioxide 27 (22-30) mmol/L Anion Gap 14.1 (5-15) MEQ/L BUN 16 (7-17) mg/dL Creatinine 0.93 (0.52-1.04) mg/dL Estimated GFR > 60.0 ML/MIN Glucose 133 H (74-106) mg/dL Calcium 9.9 (8.4-10.2) mg/dL Total Bilirubin 0.80 (0.2-1.3) mg/dL AST 56 H (14-36) U/L ALT 53 H (0-35) U/L Alkaline Phosphatase 120 (38-126) U/L Serum Total Protein 7.2 (6.3-8.2) g/dL Albumin 4.5 (3.5-5.0) g/dL Lipase 59 (23-300) U/L Urine Color YELLOW (YELLOW) Urine Appearance SLIGHTLY CLOUDY (CLEAR) Urine pH 5.0 (5-6) Ur Specific [place] 1.031 (1.005-1.025) Urine Protein 30 (Negative) Urine Ketones NEGATIVE (NEGATIVE) Urine Blood NEGATIVE (0-5) Gabriele/ul Urine Nitrite NEGATIVE (NEGATIVE) Urine Bilirubin NEGATIVE (NEGATIVE) Urine Urobilinogen NEGATIVE (0-1) mg/dL Ur Leukocyte Esterase NEGATIVE (NEGATIVE) Urine WBC (Auto) 3-5 (0-5) /HPF Urine RBC (Auto) 0-2 (0-2) /HPF U Hyaline Cast (Auto) 3-5 (0-2) /LPF U Epithel Cells (Auto) RARE (FEW) /HPF Urine Bacteria (Auto) NONE (NEGATIVE) /HPF Calcium Oxalate Crystal 26-50 (NEGATIVE) /HPF Urine Mucus (Auto) SLIGHT (NEGATIVE) /HPF Urine Culture Reflexed NO (NO) Urine Glucose NEGATIVE (NEGATIVE) mg/dL - Progress Progress: improved Progress Note: 05/29/20 12:50 She is given fluid bolus along with a small dose of morphine and Zofran, on reevaluation feeling much better. No vomiting while in the ER and her nausea is improved. Pain is almost gone. No peritoneal signs on repeat evaluation. Nor mal white count, grossly unremarkable chemistries no UTI. I have obtained CT abdomen pelvis with contrast which is negative for any acute findings. Do not know the exact cause of her symptoms could be related to adhesions from previous abdominal surgeries. Recommended Tylenol and Zofran with outpatient follow-up. Discussed signs symptoms of worsening needing return to ER which she seems understanding. Stable for discharge. Counseled pt/family regarding: lab results, diagnosis, need for follow-up, rad results - Departure Departure Disposition: Home Clinical Impression: Abdominal pain, right lower quadrant Condition: Stable Critical Care Time: No Referrals: ANJELICA MORENO MD [Primary Care Provider] - (1-2 days for reevaluation) Instructions: Acute Abdomen (Belly Pain), Adult (DC) Additional Instructions: Take Tylenol as needed for pain. Increase fiber in diet. Follow-up with primary care for reevaluation. Take Zofran as needed for nausea. Return to ER for worsening pain nausea or if develop vomiting/fever chills etc. Prescriptions: Ondansetron ODT 4 MG [Zofran Odt 4 mg] 4 mg PO Q6H PRN PRN #10 tab.rapdis PRN Reason: Vomiting
--- NOTE | 2020-05-29 19:28 | XRAY ---
Indication: Abdomen pain. Constipation. Multiple contiguous axial images obtained through the abdomen and pelvis using 80 cc Isovue-370 contrast. Comparison: December 17, 2018. Lung bases demonstrates minimal dependent atelectasis. No infiltrate or effusion. Heart is not enlarged. Stable moderate-sized hiatal hernia with partial intrathoracic stomach. Again right lower back epidural stimulator device produces beam artifact. Noncontrasted stomach and bowel loops remain nonobstructed. Appendix not seen. There is minimal/mild scattered colonic fecal debris. No free fluid/air. Stable large left renal cysts, cholecystectomy, hysterectomy, and tiny splenic calcified granulomas. Remaining liver, pancreas, spleen, adrenal glands, kidneys, ureters, and bladder are unremarkable. There remains moderate aortoiliac calcifications. No AAA or pathologic retroperitoneal lymphadenopathy. Osseous structures intact again with minimal lumbar degenerative changes, superior T12 endplate concave deformity, and L4 vertebral hemangioma. Impression: 1. Stable hiatal hernia with partial intrathoracic stomach, large left renal cysts, and chronic bony findings. 2. Remaining CT abdomen/pelvis with contrast exam is negative. Comment: Preliminary interpretation was made by [facility]. No critical discrepancy.
== END 2020-05-29 13:10 | disposition home or self-care (01) ==
LOC: ED 09:37
DX: R10.31 Right lower quadrant pain (principal)
CPT/HCPCS: 36415; 74177; 80053; 81001; 83690; 85025; 96374; 96375; 99284; J2270; J2405

== ENCOUNTER 2020-09-10 21:15 | Emergency (ER) | payer MEDICARE, OTHER ==
--- NOTE | 2020-09-10 21:16 | ERPHSYRPT ---
- History of Present Illness Time Seen by Provider: 09/10/20 21:16 Source: patient, family Exam Limitations: no limitations Physician History: This is a 74-year-old white female has a history of diabetes, hypertension, elevated cholesterol, hypothyroidism and is on aspirin and tripped over a step when her toe caught it. She hit her left side of her head and has an abrasion on her left elbow, knuckles of her left hand and abrasions on the left knee. She did not lose consciousness. She has no nausea vomiting or diarrhea. She is not on any anticoagulation therapy. She has no shortness of breath or chest pain. She is able to ambulate and move all her extremities without any problems. Her only complaint is that she has a headache and swelling and bruising on her left forehead. Occurred: just prior to arrival Reason for Fall: tripped Injuries/Pain Location: head, upper extremity, lower extremity Loss of Consciousness: no loss of consciousness Quality: burning Severity of Pain-Max: mild (At abrasion sites) Severity of Pain-Current: mild Modifying Factors: Improves With: nothing Associated Symptoms (Fall): headache, No abdominal pain, No back pain, No confusion, No chest pain, No lightheadedness, No neck pain, No shortness of breath, No slurred speech, No trouble walking, No vomiting Allergies/Adverse Reactions: No Known Drug Allergies Allergy (Verified 09/10/20 21:22) Home Medications: Amlodipine Besylate 10 mg [Norvasc 10 MG] 10 mg PO DAILY 03/04/16 [History] Aspirin 81 mg PO DAILY 03/04/16 [History] Budesonide/Formoterol Fumarate [Symbicort 80-4.5 Mcg Inhaler] 6.9 gm IH UD 03/04/16 [History] Docusate Sodium 100 mg [Colace 100 MG] 100 mg PO BID 03/04/16 [History] Estradiol [Estrace] 0.5 mg PO DAILY 03/04/16 [History] Fluoxetine HCl [Prozac] 20 mg PO DAILY 03/04/16 [History] Glipizide 10 mg [Glucotrol 10 MG] 10 mg PO DAILY 03/04/16 [History] Isosorbide Mononitrate 30 mg [Imdur 30 MG] 30 mg PO DAILY 03/04/16 [History] Levothyroxine Sodium [Synthroid] 125 mcg PO DAILY 03/04/16 [History] Meloxicam 7.5 mg [Mobic 7.5 MG] 7.5 mg PO UD 03/04/16 [History] Metformin HCl Xr 500 mg [Glucophage XR 500 MG] 500 mg PO DAILY 03/04/16 [History] Metoprolol Tartrate 25 mg [Lopressor 25MG Tab] 25 mg PO DAILY 03/04/16 [History] Polyethylene Glycol 3350 17 gm [Miralax Powder 17GM PACKET] 17 gm PO DAILY 03/04/16 [History] Simvastatin 40 mg [Zocor 40 mg] 40 mg PO DAILY 03/04/16 [History] Tramadol HCl 50 mg [Ultram 50 mg] 50 mg PO UD 03/04/16 [History] Verapamil HCl Sr 240 mg [Isoptin S.r. 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 - Vaccination Dates Date of 2cond Vaccination (if applicable): mar - Review of Systems Constitutional: No Symptoms Eyes: No Symptoms Ears, Nose, & Throat: No Symptoms Respiratory: No Symptoms Cardiac: No Symptoms Abdominal/Gastrointestinal: No Symptoms Genitourinary Symptoms: No Symptoms Musculoskeletal: Fall, Other (Shins on the knuckles of left hand digits 345, left elbow abrasion, anterior left knee abrasion) Skin: Other (Patient's as stated above) Neurological: Headache (At hematoma site left forehead) Psychological: No Symptoms Endocrine: No Symptoms Hematologic/Lymphatic: No Symptoms Immunological/Allergic: No Symptoms All Other Systems: Reviewed and Negative - Past Medical History Pertinent Past Medical History: Yes Neurological History: No Pertinent History Cardiac History: Arrhythmia, Coronary Artery Disease, Hypertension, Myocardial I nfarction ([place]) Respiratory History: Bronchitis Endocrine Medical History: Diabetes Type II, Hypothyroidism Musculoskeletal History: Osteoarthritis, Other Other Medical History: PT. HAD STENTS 5-6 YEARS AGO. PT. REPORTS SHE HAS ANGINA OCCASIONALLY. PT. SUSTAINED VERTEBRAL FXS IN 1985. HX L-SPINE OA. - Past Surgical History Past Surgical History: Yes Cardiac: Cardiac Stent Gastrointestinal: Cholecystectomy Musculoskeletal: Orthopedic Surgery Female Surgical History: Hysterectomy - Social History Smoking Status: Never smoker Exposure to second hand smoke: No Drug Use: none Patient Lives Alone: No - Nursing Vital Signs Nursing Vital Signs: Initial Vital Signs Temperature 98.2 F 09/10/20 21:22 Pulse Rate 72 09/10/20 21:22 Respiratory Rate 18 09/10/20 21:22 Blood Pressure 180/92 09/10/20 21:22 O2 Sat by Pulse Oximetry 98 09/10/20 21:22 Pain Scale Pain Intensity 6 - Lynne Coma Score Best Eye Response (Lynne): (4) open spontaneously Best Verbal Response (Lynne): (5) oriented Best Motor Response (Lynne): (6) obeys commands [place] Total: 15 - Physical Exam General Appearance: no apparent distress, alert, anxiety Head Injury: contusions, ecchymosis (Left forehead and upper eyelid on the left side), swelling, tenderness (Left forehead) Eye Exam: PERRL/EOMI, eyes nml inspection ENT Exam: airway nml, No evidence of ENT injury, No dental injury Neck Exam: supple, trachea midline, full range of motion, normal alignment, normal inspection Respiratory/Chest Exam: normal breath sounds, No chest tenderness, No respiratory distress, No ecchymosis, No crepitus, No accessory muscle use Cardiovascular Exam: normal heart sounds, regular rate/rhythm Gastrointestinal Exam: soft, normal bowel sounds, No tenderness Rectal Exam: not done Back Exam: normal inspection, normal range of motion, No CVA tenderness, No vertebral tenderness Extremity Exam: normal range of motion, tenderness (And abrasions as stated above.), No deformities Neurologic Exam: alert, oriented x 3, cooperative, 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 This hematoma measures 7 mm x 10 mm x 5 mm. There are adjacent skull fractures involving the floor of the anterior cranial fossa/roof of the left orbit. There is also a tiny adjacent extra-axial hematoma in the left frontal region measuring approximately 2 mm in thickness. There is minimal edema adjacent to the small parenchymal hematoma. There is no midline shift present. There is a left frontal scalp hematoma. 09/11/20 00:44 Medical decision making: I attempted to contact our hospitalist that on this morning but there is no call back. [facility] in [facility] does not have trauma service. That was the first preference. I then contacted [facility] trauma surgeon Dr. Spencer. She then checked with plastic surgery to make sure the fractures that this patient has do not require emergent surgical intervention. She called back and stated that she will accept this patient in transfer. I told Dr. Spencer that I did not x-ray the left knee, left elbow and left hand. I have a very low suspicion that this patient has a fracture. She does have abrasions at the sites. However she does not complain of any pain in these areas. I also told her that I did not CAT scan the patient's cervical spine because the patient did not have any pain complaints in that area either. Patient is fully alert awake and oriented. Dr. Spencer prefers the patient be transferred with a cervical collar in place. They will reexamine her through the emergency department and x-ray any areas that were not x-rayed earlier that they deem x-rays are necessary for. Counseled pt/family regarding: diagnosis, rad results - Departure Departure Disposition: Transfer Clinical Impression: Fall with significant injury, Hematoma of frontal scalp, Fracture of left orbital floor, Intracranial hematoma following injury Condition: Stable Critical Care Time: Yes Critical Care Time(excluding separately billable procedures): Critical 30-74 mins Referrals: ANJELICA MORENO MD [Primary Care Provider] -
[2020-09-11 01:11] VITALS: BP 178/83; PULSE 62; O2SAT 95
--- NOTE | 2020-09-11 08:12 | XRAY ---
Left-hand hematoma following fall. Multiple contiguous axial images obtained through the head without contrast. Comparison: None Age-appropriate global atrophy and mild periventricular degenerative micro-ischemia bilaterally. Left frontal lobe demonstrates tiny 2 mm thick subdural hematoma and at least 3 cm in width. Also small left frontal scalp hematoma. Roof of the left orbit demonstrates minimally depressed comminuted fracture. No abnormal extra-axial fluid collection, or mass effect. Fourth ventricle is midline without hydrocephalus. Remaining bony calvarium intact. Visualized paranasal sinuses and mastoid air cells are clear. Impression: Tiny left frontal lobe subdural hematoma, small left frontal scalp hematoma, and fracture roof of left orbit. Comment: Preliminary interpretation was made by [facility]. No critical discrepancy.
== END 2020-09-11 01:18 | disposition short-term general hospital (02) ==
LOC: ED 21:15
DX: S00.03XA Contusion of scalp, initial encounter (principal); S02.32XA Fracture of orbital floor, left side, initial encounter for closed fracture; S06.2X0A Diffuse traumatic brain injury without loss of consciousness, initial encounter; W01.0XXA Fall on same level from slipping, tripping and stumbling without subsequent striking against object, initial encounter; Y93.01 Activity, walking, marching and hiking; Y92.89 Other specified places as the place of occurrence of the external cause; Y99.8 Other external cause status; S50.312A Abrasion of left elbow, initial encounter; Z79.899 Other long term (current) drug therapy; I25.10 Atherosclerotic heart disease of native coronary artery without angina pectoris; I10 Essential (primary) hypertension; I25.2 Old myocardial infarction; E11.9 Type 2 diabetes mellitus without complications; E03.9 Hypothyroidism, unspecified
CPT/HCPCS: 70450; 99284; 99291; L0120

== ENCOUNTER 2020-11-10 15:32 | Emergency (ER) | payer MEDICARE, OTHER ==
[2020-11-10 15:51] VITALS: BP 154/90; PULSE 68; O2SAT 98
--- NOTE | 2020-11-10 16:32 | XRAY ---
Indication: Constipation 5 days. Obstruction. Comparison: None 2 view abdomen demonstrates nonobstructed bowel gas pattern with minimal/mild scattered colonic fecal debris, cholecystectomy clips, splenic calcified granulomas, and right lower back epidural stimulator device/leads. Osseous structures intact with osteopenia and lower lumbar degenerative spondylosis. Lung bases clear with incidental small hiatal hernia. Impression: Nonacute nonobstructed abdomen with chronic features.
--- NOTE | 2020-11-10 16:42 | ERPHSYRPT ---
- History of Present Illness Time Seen by Provider: 11/10/20 15:46 Source: patient Exam Limitations: no limitations Patient Subjective Stated Complaint: Constipation Triage Nursing Assessment: Patient ambulated back to ED and transferred self to bed. Patient A+O x3. Patient's skin pink, warm and dry. Patient complains of constipation and has not had a bowel movement in 5 days. Patient denies N/V or diarrhea. Abdomen soft and round with BS X 4. Patient complains of intermittent abdominal pain 05/04. Physician History: 74 years old female with multiple medical problems presented in the ER with chief complaint of constipation. Patient reports she has a normal bowel movement 5 days ago. She has been using Linzess/MiraLAX and has taken 2 Fleet enemas with no bowel movement. She did self digital rectal exam and did not feel any hard stool or soft stool in the rectal vault. Complaint of occasional low back pain mild intensity cramping nature but no nausea vomiting or diarrhea reported. No fever or chills reported. Not taking any pain medications. Does have history of constipation. Allergies/Adverse Reactions: No Known Drug Allergies Allergy (Verified 11/10/20 15:45) Home Medications: Amlodipine Besylate 10 mg [Norvasc 10 MG] 10 mg PO DAILY 03/04/16 [History] Aspirin 81 mg PO DAILY 03/04/16 [History] Budesonide/Formoterol Fumarate [Symbicort 80-4.5 Mcg Inhaler] 6.9 gm IH UD 03/04/16 [History] Docusate Sodium 100 mg [Colace 100 MG] 100 mg PO BID 03/04/16 [History] Estradiol [Estrace] 0.5 mg PO DAILY 03/04/16 [History] Fluoxetine HCl [Prozac] 20 mg PO DAILY 03/04/16 [History] Glipizide 10 mg [Glucotrol 10 MG] 10 mg PO DAILY 03/04/16 [History] Isosorbide Mononitrate 30 mg [Imdur 30 MG] 30 mg PO DAILY 03/04/16 [History] Levothyroxine Sodium [Synthroid] 125 mcg PO DAILY 03/04/16 [History] Meloxicam 7.5 mg [Mobic 7.5 MG] 7.5 mg PO UD 03/04/16 [History] Metformin HCl Xr 500 mg [Glucophage XR 500 MG] 500 mg PO DAILY 03/04/16 [History] Metoprolol Tartrate 25 mg [Lopressor 25MG Tab] 25 mg PO DAILY 03/04/16 [History] Polyethylene Glycol 3350 17 gm [Miralax Powder 17GM PACKET] 17 gm PO DAILY 03/04/16 [History] Simvastatin 40 mg [Zocor 40 mg] 40 mg PO DAILY 03/04/16 [History] Tramadol HCl 50 mg [Ultram 50 mg] 50 mg PO UD 03/04/16 [History] Verapamil HCl Sr 240 mg [Isoptin S.r. 240 mg] 240 mg PO DAILY 03/04/16 [History] Calcium Carb, Citrate/Vit D3 [Calcium + D3 ER Tablet] 1 each PO DAILY 12/15/16 [History] Hx Tetanus, Diphtheria Vaccination/Date Given: No Hx Influenza Vaccination/Date Given: Yes Hx Pneumococcal Vaccination/Date Given: Yes Immunizations Up to Date: Yes Travel Risk - International Travel Have you traveled outside of the country in past 3 weeks: No - Coronavirus Screening Are you exhibiting any of the following symptoms?: No Close contact with a COVID-19 positive Pt in past 14-21 Days: No - Vaccine Status Have you recieved a Covid-19 vaccination: Yes Transcriber: Moderna - Vaccination Dates Date of 2cond Vaccination (if applicable): mar - Review of Systems Constitutional: No Symptoms Eyes: No Symptoms Respiratory: No Symptoms Cardiac: No Symptoms Abdominal/Gastrointestinal: Abdominal Pain, Constipation Genitourinary Symptoms: No Symptoms Skin: No Symptoms Psychological: No Symptoms Endocrine: No Symptoms Hematologic/Lymphatic: No Symptoms Immunological/Allergic: No Symptoms - Past Medical History Pertinent Past Medical History: Yes Neurological History: No Pertinent History Cardiac History: Arrhythmia, Coronary Artery Disease, Hypertension, Myocardial Infarction ([place]) Respiratory History: Bronchitis Endocrine Medical History: Diabetes Type II, Hypothyroidism Musculoskeletal History: Osteoarthritis, Other Other Medical History: PT. HAD STENTS 5-6 YEARS AGO. PT. REPORTS SHE HAS ANGINA OCCASIONALLY. PT. SUSTAINED VERTEBRAL FXS IN 1985. HX L-SPINE OA. - Past Surgical History Past Surgical History: Yes Cardiac: Cardiac Stent Gastrointestinal: Cholecystectomy Musculoskeletal: Orthopedic Surgery Female Surgical History: Hysterectomy - Social History Smoking Status: Never smoker Exposure to second hand smoke: No Drug Use: none Patient Lives Alone: No - Female History Hx Now: No - Nursing Vital Signs Nursing Vital Signs: Initial Vital Signs Temperature 98.4 F 11/10/20 15:46 Pulse Rate 68 11/10/20 15:46 Respiratory Rate 18 11/10/20 15:46 Blood Pressure 154/90 11/10/20 15:46 O2 Sat by Pulse Oximetry 98 11/10/20 15:46 Pain Scale Pain Intensity 3 - Physical Exam General Appearance: no apparent distress Eye Exam: PERRL/EOMI Ears, Nose, Throat Exam: normal ENT inspection Neck Exam: normal inspection, full range of motion Respiratory Exam: normal breath sounds, lungs clear Cardiovascular Exam: regular rate/rhythm, normal heart sounds Gastrointestinal/Abdomen Exam: soft, normal bowel sounds, No tenderness Back Exam: No CVA tenderness Extremity Exam: normal inspection, normal range of motion Neurologic Exam: alert, oriented x 3, cooperative, sensation nml, No motor deficits Skin Exam: normal color SpO2 Interpretation: normal SpO2: 98 O2 Delivery: Room Air Ordered Tests: Active Orders 24 hr Category Date Time Status ABDOMEN 2 VIEW Stat Exams 11/10/20 16:03 Completed - Progress Progress: unchanged Progress Note: 11/10/20 16:40 She has abdominal exam soft nontender with good bowel sounds in all 4 quadrants. No peritoneal signs at all. I have obtained x-rays which showed nonobstr uctive gas pattern with minimal stool loading. She is not overtly constipated and with empty rectal vault I do not think it is a good idea to give her an enema, recommended continuing with MiraLAX and stool softener Linzess and outpatient follow-up. Discussed signs symptoms of worsening needing return to ER which he seems understanding. No back pain and negative neuro exam lower extremities. Counseled pt/family regarding: diagnosis, need for follow-up, rad results - Departure Departure Disposition: Home Clinical Impression: Constipation Qualifiers: Constipation type: unspecified constipation type Qualified Code(s): K59.00 - Constipation, unspecified Condition: Stable Critical Care Time: No Referrals: ANJELICA MORENO MD [Primary Care Provider] - Follow Up with PCP/3 days Instructions: Constipation, Adult (DC) Additional Instructions: Drink plenty of fluids, take MiraLAX stool softener/Linzess as recommended. Increase fiber supplements and diet. Follow-up with primary care for reevaluation. Return to ER for worsening abdominal pain or inability to go even after few days with above treatments.
== END 2020-11-10 17:00 | disposition home or self-care (01) ==
LOC: ED 15:32
DX: K59.00 Constipation, unspecified (principal)
CPT/HCPCS: 74021; 99283

== ENCOUNTER 2021-04-20 18:19 | Emergency (ER) | payer MEDICARE, OTHER ==
[2021-04-20] MEDS ORDERED: Sodium Chloride 0.9% 1000 ML 1,000 ML IV SCH (18:45)
[2021-04-20] MEDS ORDERED: Sodium Chloride 0.9% 1000 ML 1,000 ML ONE (18:52)
[2021-04-20 19:20] VITALS: O2SAT 97
--- NOTE | 2021-04-20 19:29 | ERPHSYRPT ---
- History of Present Illness Time Seen by Provider: 04/20/21 18:40 Source: patient Exam Limitations: no limitations Patient Subjective Stated Complaint: weakness r/t vomiting, chronic Triage Nursing Assessment: pt to ED c/o chronic vomiting and weakness. pt states she has felt this way for months but her daughter says she seems confused today. A&Ox3. has appt scheduled with GI doctor at [facility] next week. last PO today around noon. Physician History: Patient is a 75-year-old female presents to our ED as a request by her daughter for evaluation of generalized weakness ongoing nausea and vomiting and decreased p.o. and some mild confusion. Patient states that she has a significant hiatal hernia which her primary care doctor attributes her nausea and vomiting. Patient is currently scheduled to see a GI doctor next week. Vomiting is nonbloody nonbilious. Patient's weakness is generalized. No falls no trauma no fever. Patient is alert and oriented x4 at this time. Patient does not appear confused. Symptoms are constant. Symptoms are mild to moderate in intensity. No specific worsening improving factors. Patient voices no other complaints or concerns at this time. Patient also complains of vague abdominal pain. Abdominal pain is periumbilical. Patient states his pain is chronic as well. Patient voices no other complaints or concerns at this time. Timing/Duration: other (1 month) Severity: moderate Modifying Factors: Improves With: nothing Associated Symptoms: nausea, vomiting, abdominal pain, weakness, No chest pain, No fever, No malaise, No syncope, No seizure Allergies/Adverse Reactions: No Known Drug Allergies Allergy (Verified 11/10/20 15:45) Home Medications: Amlodipine Besylate 10 mg [Norvasc 10 MG] 10 mg PO DAILY 03/04/16 [History] Aspirin 81 mg PO DAILY 03/04/16 [History] Budesonide/Formoterol Fumarate [Symbicort 80-4.5 Mcg Inhaler] 6.9 gm IH UD 03/04/16 [History] Docusate Sodium 100 mg [Colace 100 MG] 100 mg PO BID 03/04/16 [History] Estradiol [Estrace] 0.5 mg PO DAILY 03/04/16 [History] Fluoxetine HCl [Prozac] 20 mg PO DAILY 03/04/16 [History] Glipizide 10 mg [Glucotrol 10 MG] 10 mg PO DAILY 03/04/16 [History] Isosorbide Mononitrate 30 mg [Imdur 30 MG] 30 mg PO DAILY 03/04/16 [ History] Levothyroxine Sodium [Synthroid] 125 mcg PO DAILY 03/04/16 [History] Meloxicam 7.5 mg [Mobic 7.5 MG] 7.5 mg PO UD 03/04/16 [History] Metformin HCl Xr 500 mg [Glucophage XR 500 MG] 500 mg PO DAILY 03/04/16 [History] Metoprolol Tartrate 25 mg [Lopressor 25MG Tab] 25 mg PO DAILY 03/04/16 [History] Polyethylene Glycol 3350 17 gm [Miralax Powder 17GM PACKET] 17 gm PO DAILY 03/04/16 [History] Simvastatin 40 mg [Zocor 40 mg] 40 mg PO DAILY 03/04/16 [History] Tramadol HCl 50 mg [Ultram 50 mg] 50 mg PO UD 03/04/16 [History] Verapamil HCl Sr 240 mg [Isoptin S.r. 240 mg] 240 mg PO DAILY 03/04/16 [History] Calcium Carb, Citrate/Vit D3 [Calcium + D3 ER Tablet] 1 each PO DAILY 12/15/16 [History] Hx Tetanus, Diphtheria Vaccination/Date Given: No Hx Influenza Vaccination/Date Given: Yes Hx Pneumococcal Vaccination/Date Given: Yes Immunizations Up to Date: Yes Travel Risk - International Travel Have you traveled outside of the country in past 3 weeks: No - Coronavirus Screening Are you exhibiting any of the following symptoms?: Yes Symptoms: Vomiting/Diarrhea Close contact with a COVID-19 positive Pt in past 14-21 Days: No - Vaccine Status Have you recieved a Covid-19 vaccination: Yes 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 - Vaccination Dates Date of 2cond Vaccination (if applicable): unknown - Review of Systems Constitutional: No Symptoms, No Fever, No Chills Eyes: No Symptoms Ears, Nose, & Throat: No Symptoms Respiratory: No Symptoms, No Cough, No Dyspnea Cardiac: No Symptoms, No Chest Pain, No Edema, No Syncope Abdominal/Gastrointestinal: No Symptoms, No Abdominal Pain, No Nausea, No Vomiting, No Diarrhea Genitourinary Symptoms: No Symptoms, No Dysuria Musculoskeletal: No Symptoms, No Back Pain, No Neck Pain Skin: No Symptoms, No Rash Neurological: No Symptoms, No Dizziness, No Focal Weakness, No Sensory Changes Psychological: No Symptoms Endocrine: No Symptoms Hematologic/Lymphatic: No Symptoms Immunological/Allergic: No Symptoms All Other Systems: Reviewed and Negative - Past Medical History Pertinent Past Medical History: Yes Neurological History: No Pertinent History Cardiac History: Arrhythmia, Coronary Artery Disease, Hypertension, Myocardial Infarction ([place]) Respiratory History: Bronchitis Endocrine Medical History: Diabetes Type II, Hypothyroidism Musculoskeletal History: Osteoarthritis, Other Other Medical History: PT. HAD STENTS 5-6 YEARS AGO. PT. REPORTS SHE HAS ANGINA OCCASIONALLY. PT. SUSTAINED VERTEBRAL FXS IN 1985. HX L-SPINE OA. - Past Surgical History Past Surgical History: Yes Cardiac: Cardiac Stent Gastrointestinal: Cholecystectomy Musculoskeletal: Orthopedic Surgery Female Surgical History: Hysterectomy - Social History Smoking Status: Never smoker Exposure to second hand smoke: No Drug Use: none Patient Lives Alone: No - Female History Hx Now: No - Nursing Vital Signs Nursing Vital Signs: Initial Vital Signs Temperature 97.8 F 04/20/21 18:30 Pulse Rate 93 H 04/20/21 18:30 Respiratory Rate 20 04/20/21 18:30 Blood Pressure 161/112 04/20/21 18:30 O2 Sat by Pulse Oximetry 98 04/20/21 18:30 Pain Scale Pain Intensity 8 - Physical Exam General Appearance: no apparent distress, alert Eye Exam: PERRL/EOMI, eyes nml inspection Ears, Nose, Throat Exam: normal ENT inspection, TMs normal, pharynx normal, moist mucous membranes Neck Exam: normal inspection, non-tender, supple, full range of motion Respiratory Exam: normal breath sounds, lungs clear, airway intact, No respiratory distress Cardiovascular Exam: regular rate/rhythm, normal heart sounds, normal peripheral pulses Gastrointestinal/Abdomen Exam: soft, normal bowel sounds, No tenderness, No mass Back Exam: normal inspection, normal range of motion, No CVA tenderness, No vertebral tenderness Extremity Exam: normal inspection, normal range of motion, pelvis stable Neurologic Exam: alert, oriented x 3, cooperative, normal mood/affect, nml cerebellar function, nml station & gait, sensation nml, No motor deficits Skin Exam: normal color, warm, dry, No rash Lymphatic Exam: No adenopathy SpO2 Interpretation: normal SpO2: 97 O2 Delivery: Room Air - Course Nursing assessment & vital signs reviewed: Yes - CT Exams Abdomen/Pelvis CT Interpretation: Tele-radiologist Report (Finding most likely represents enterocolitis. There is an 8.1 cm multi locular cystic mass in the left kidney with possible thin enhancing septations. While there is no significant interval change nonemergent surgical consultation is recommended.) Ordered Tests: Active Orders 24 hr Category Date Time Status IV Insertion STAT Care 04/20/21 18:39 Active ABDOMEN AND PELVIS W CONTRAST [CT] Stat Exams 04/20/21 18:40 Taken CBC W DIFF Stat Lab 04/20/21 19:32 Completed CMP Stat Lab 04/20/21 19:32 Completed LIPASE Stat Lab 04/20/21 19:32 Completed TROPONIN Q3H Lab 04/20/21 19:32 Completed TROPONIN Q3H Lab 04/20/21 22:30 Received TROPONIN Q3H Lab 04/21/21 00:45 Ordered TROPONIN Q3H Lab 04/21/21 03:45 Ordered TROPONIN Q3H Lab 04/21/21 06:45 Ordered UA W/RFX UR CULTURE Stat Lab 04/20/21 18:40 Ordered Medication Summary Generic Name Dose Route Start Last Admin Trade Name Freq PRN Reason Stop Dose Admin Sodium Chloride 1,000 mls @ 100 mls/hr 04/20/21 18:45 04/20/21 18:53 Sodium Chloride 0.9% 1000 Ml IV 05/20/21 18:44 100 mls/hr .Q10H DAE Administration Lab/Rad Data: Laboratory Result Diagrams 04/20/21 19:32 04/20/21 19:32 Laboratory Results 04/20/21 04/20/21 04/20/21 Range/Units 19:32 19:32 19:32 WBC 7.2 (4.0-10.5) K/mm3 RBC 4.07 L (4.1-5.4) M/mm3 Hgb 14.6 (12.0-16.0) gm/dl Hct 42.1 (35-47) % MCV 103.4 H (78-100) fl MCH 35.9 H (26-32) pg MCHC 34.7 (32-36) g/dl RDW 13.0 (11.5-14.0) % Plt Count 204 (150-450) K/mm3 MPV 11.3 H (7.5-11.0) fl Gran % 64.6 (36.0-66.0) % Eos # (Auto) 0.02 (0-0.5) Absolute Lymphs (auto) 1.84 (1.0-4.6) Absolute Monos (auto) 0.68 (0.0-1.3) Lymphocytes % 25.4 (24.0-44.0) % Monocytes % 9.4 (0.0-12.0) % Eosinophils % 0.3 (0.00-5.0) % Basophils % 0.3 (0.0-0.4) % Absolute Granulocytes 4.67 (1.4-6.9) Basophils # 0.02 (0-0.4) Sodium 134 L (137-145) mmol/L Potassium 3.9 (3.5-5.1) mmol/L Chloride 96 L (98-107) mmol/L Carbon Dioxide 28 (22-30) mmol/L Anion Gap 13.5 (5-15) MEQ/L BUN 21 H (7-17) mg/dL Creatinine 1.12 H (0.52-1.04) mg/dL Estimated GFR 50.1 ML/MIN Glucose 110 H (74-106) mg/dL Calcium 9.1 (8.4-10.2) mg/dL Total Bilirubin 0.90 (0.2-1.3) mg/dL AST 46 H (14-36) U/L ALT 39 H (0-35) U/L Alkaline Phosphatase 65 (38-126) U/L Troponin I < 0.012 (0.000-0.034) ng/mL Serum Total Protein 7.1 (6.3-8.2) g/dL Albumin 4.5 (3.5-5.0) g/dL Lipase 57 (23-300) U/L - Progress Progress: improved Progress Note: Patient reassessed. She feels much better. Patient tolerated p.o. Incidental kidney mass observed. Patient states she is aware of this mass. Daughter was concerned that there may have been some sort of confusion. However patient was at her baseline here in our ED. We discussed patient status with daughter. Daughter states she is comfortable bringing patient back home. I discussed case with Dr. Moreno patient's primary care doctor who agrees to follow-up with patient on an outpatient basis. Patient will call his office in the morning for follow-up within the next 48 hours. Patient voices no other complaints or concerns this time will discharge home. Portions of this note were created with voice recognition technology. There may be grammatical, spelling, punctuation or sound alike errors 04/20/21 22:[address] Cordell Will see patient in: office Counseled pt/family regarding: lab results, diagnosis, need for follow-up, rad results - Departure Departure Disposition: Home Clinical Impression: Coronary artery disease, Hiatal hernia, Hepatic steatosis, Cystic mass left kidney, Splenic artery aneurysm, Advanced arterial sclerotic disease, Ente rocolitis, Elevated liver enzymes Condition: Stable Critical Care Time: No Referrals: ANJELICA MORENO MD [Primary Care Provider] - Follow up/PCP as directed ISI DESHPANDE [COURTESY STAFF] - Follow up/PCP as directed Additional Instructions: Urology/surgical consultation advised for left kidney cystic mass observed on your CAT scan. You were provided a referral to Dr. Deshpande for consultation regarding this kidney mass. Discharge/Care Plan CARRIE VANCE was seen on 04/20/21 in the Emergency Room. The patient was counseled regarding Diagnosis,Lab results, Imaging studies, need for follow up and when to return to the Emergency Room. Prescriptions given: Discharge Note I have spoken with the patient and/or caregivers. I have explained the patient's condition, diagnosis and treatment plan based on the information available to me at this time. I have answered the patient's and/or caregiver's questions and addressed any concerns. The patient and/or caregivers have as good understanding of the patient's diagnosis, condition and treatment plan as can be expected at this point. The vital signs have been stable. The patient's condition is stable and appropriate for discharge from the emergency department. The patient will pursue further outpatient evaluation with the primary care physician or other designated or consulting physician as outlined in the [facility] instructions. The patient and/or caregivers are agreeable to this plan of care and follow-up instructions have been explained in detail. The patient and/or caregivers have received these instruction. The patient/and or caregivers are aware that any significant change in condition or worsening of symptoms should prompt an immediate return to this or the closest emergency department or call 911.
[2021-04-20 19:37] LABS: Absolute Neutrophil Ct (ANC) 4.67 (1.4-6.9); Basophil (Absolute #) 0.02 (0-0.4); Eosinophil % 0.3 % (0.00-5.0); Eosinophil (Absolute #) 0.02 (0-0.5); Hematocrit 42.1 % (35-47); Hemoglobin 14.6 gm/dl (12.0-16.0); Lymphocyte (Absolute #) 1.84 (1.0-4.6); Lymphocytes % 25.4 % (24.0-44.0); Mean Cell Volume 103.4 fl (78-100); Mean Corpuscular Hemoglobin 35.9 pg (26-32); Mean Corpuscular Hgb Concent. 34.7 g/dl (32-36); Mean Platelet Volume 11.3 fl (7.5-11.0); Monocyte (Absolute #) 0.68 (0.0-1.3); Monocytes % 9.4 % (0.0-12.0); Neutrophil % 64.6 % (36.0-66.0); Platelet Count 204 K/mm3 (150-450); Red Blood Count 4.07 M/mm3 (4.1-5.4); White Blood Count 7.2 K/mm3 (4.0-10.5)
[2021-04-20 19:49] LABS: ALBUMIN 4.5 g/dL (3.5-5.0); ANION GAP 13.5 MEQ/L (5-15); BILIRUBIN,TOTAL 0.9 mg/dL (0.2-1.3); Calcium 9.1 mg/dL (8.4-10.2); Creatinine 1 1.12 mg/dL (0.52-1.04); EST GLOMERULAR FILTRATION RATE 50.1 ML/MIN; Potassium 3.9 mmol/L (3.5-5.1); Total Protein 7.1 g/dL (6.3-8.2)
[2021-04-20 22:05] VITALS: PULSE 74
[2021-04-20 23:12] VITALS: BP 184/100
--- NOTE | 2021-04-22 16:10 | XRAY ---
Exam: CT of the abdomen and pelvis with IV contrast from 04/20/2021. CTDI: 2.53 mGy Comparison: CT of the abdomen and pelvis with IV contrast from 05/29/2020. Indication: 75-year-old female with lower abdominal pain associated with nausea/vomiting for 1 year; the patient has a history of prior hysterectomy and cholecystectomy. Technique: Post-IV contrast axial images were obtained through the abdomen and pelvis during automated injection of 80 ML's of Isovue 370 contrast. Reconstructed coronal and sagittal images were created and reviewed. Findings: The CT cigar head piercer images reveals a metallic power pack overlying the patient's right flank with 2 leads extending from it entering the spinal canal near the thoracolumbar junction with the distal leads extending superiorly as far as T7. This is consistent with a neurostimulator device. The lung bases are remarkable for a moderate sized sliding hiatal hernia representing no significant change. Otherwise, the lung bases are free of active disease. The heart size is normal. The liver appears of unremarkable size and uniform attenuation. There is questionable slight diffuse fatty infiltration of the liver. No focal hepatic mass or intrahepatic biliary duct distention is seen. Surgical clips consistent with prior cholecystectomy are noted. The spleen is of unremarkable size and reveals no mass. Vascular calcification is seen within a tortuous splenic artery, the latter appearing to contain some small splenic aneurysms representing no change. The pancreas appears unremarkable. The adrenal glands are of normal size and configuration. The kidneys are remarkable for a large multicystic mass within the lower pole of the left kidney measuring 7.5 cm in AP dimension, 8.1 cm in width, and about 8.2 cm in craniocaudal dimension. I believe this is similar to 05/29/2020 and it appears to represent multiple prominent cysts in close proximity. This mass measures about +8.3 Hounsfield units suggesting of fluid. Both kidneys function. No renal calculi or hydronephrosis is seen. Moderate atherosclerotic vascular calcification is seen within the abdominal aorta and iliac arteries. No abdominal aortic aneurysm is seen. There appears to be a vascular stent within the proximal right renal artery. No abnormal retroperitoneal lymphadenopathy is seen. There is no free intraperitoneal air or bowel containing ventral hernia. The bowel appears nonobstructed. Scattered stool is seen throughout the left hemicolon. There appears to be some bowel wall thickening within the distal small bowel, and portions of the right hemicolon. This may be due to enterocolitis. I see no findings of acute appendicitis within the right lower quadrant. There is minimal sigmoid colon diverticulosis without evidence of diverticulitis. The uterus is surgically absent. The urinary bladder is partially filled and appears grossly unremarkable. Mild sigmoid colon diverticulosis without evidence of diverticulitis is seen. No other pelvic mass or pelvic lymphadenopathy is seen. No free intraperitoneal fluid is seen. The skeleton reveals mild central superior endplate compression of T12 representing no significant change. No acute fracture or other aggressive process is seen. Mild bilateral facet osteoarthritis is seen at L4-L5 and moderate bilateral facet osteoarthritis is seen at L5-S1. I believe this is unchanged. A focal hemangioma is seen within the left aspect of the L4 vertebral body representing no change. Impression: 1. CT findings suggestive of enterocolitis. There is no bowel obstruction or free air/free fluid. I do see some mild sigmoid colon diverticulosis without evidence of diverticulitis. 2. There is an 8.2 cm in diameter multilocular cystic mass within the lower pole of the left kidney representing no significant interval change. This appears to represent numerous prominent cysts in close proximity with each other. 3. Advanced atherosclerotic vascular disease is seen. A right renal arterial stent is again seen. Small stable splenic artery aneurysms are again evident. 4. Stable moderate sized hiatal hernia. 5. Questionable mild diffuse hepatic steatosis. 6. Status post cholecystectomy and hysterectomy. There also appears to be a neurostimulator device on the right, as discussed above. 7. Skeletal findings, as discussed above.
== END 2021-04-20 23:50 | disposition home or self-care (01) ==
LOC: ED 18:19
DX: I25.10 Atherosclerotic heart disease of native coronary artery without angina pectoris (principal); K44.9 Diaphragmatic hernia without obstruction or gangrene; K76.0 Fatty (change of) liver, not elsewhere classified; N28.1 Cyst of kidney, acquired; I72.8 Aneurysm of other specified arteries; I70.90 Unspecified atherosclerosis; K52.9 Noninfective gastroenteritis and colitis, unspecified; R74.01 Elevation of levels of liver transaminase levels; R11.2 Nausea with vomiting, unspecified; M53.1 Cervicobrachial syndrome; R41.0 Disorientation, unspecified; E11.9 Type 2 diabetes mellitus without complications; Z79.84 Long term (current) use of oral hypoglycemic drugs; Z79.891 Long term (current) use of opiate analgesic; I10 Essential (primary) hypertension
CPT/HCPCS: 36000; 36415; 74177; 80053; 83690; 84484; 85025; 99284

== ENCOUNTER 2021-08-12 16:01 | Observation (INO) | payer MEDICARE, OTHER ==
[2021-08-12] MEDS ORDERED: CLONIDINE 0.1 MG TABLET PO ONE (16:41)
--- NOTE | 2021-08-12 16:43 | ERPHSYRPT ---
- History of Present Illness Source: patient, other (Neighbor) Exam Limitations: clinical condition Patient Subjective Stated Complaint: weakness Triage Nursing Assessment: Patient ambulated back to ED with assist of 1. Patient stumbling. Patient noted to have left facial drooping and slurred speech. Patient A+ O X 2 disoriented to time. Patient's skin pink, warm and dry. Patient's neighbor stated patient had called her and patient was having slurred speach and hard to understand. Neighbor came and picked her up and brought to ED for eval. Patient states she has been falling today and dropping things several things today. Unaware of last known well. Physician History: 75 yo Wf w garbled speech/Mild confusion/L facial droop/falls which appear to be greater than 3hours per pt's poor hxShe has. Pt is alert and oriented to name/place but has trouble w date. She has no focal weakness of her extremities per immediate PE. Timing/Duration: today Severity: mild Character of Deficits: impaired speech, Left Facial Deficits: off balance Baseline/Normal Cognition: alert oriented x 3 Current Cognition: alert/disoriented to time Baseline Gait: uses cane (Uses cane x 2 days) Associated Symptoms: confusion Allergies/Adverse Reactions: No Known Drug Allergies Allergy (Verified 08/12/21 18:25) Home Medications: Amlodipine Besylate 10 mg [Norvasc 10 MG] 10 mg PO DAILY 03/04/16 [History] Aspirin 81 mg PO DAILY 03/04/16 [History] Budesonide/Formoterol Fumarate [Symbicort 80-4.5 Mcg Inhaler] 6.9 gm IH UD 03/04/16 [History] Docusate Sodium 100 mg [Colace 100 MG] 100 mg PO BID 03/04/16 [History] Estradiol [Estrace] 0.5 mg PO DAILY 03/04/16 [History] Fluoxetine HCl [Prozac] 20 mg PO DAILY 03/04/16 [History] Glipizide 10 mg [Glucotrol 10 MG] 10 mg PO DAILY 03/04/16 [History] Isosorbide Mononitrate 30 mg [Imdur 30 MG] 30 mg PO DAILY 03/04/16 [History] Levothyroxine Sodium [Synthroid] 125 mcg PO DAILY 03/04/16 [History] Meloxicam 7.5 mg [Mobic 7.5 MG] 7.5 mg PO UD 03/04/16 [History] Metformin HCl Xr 500 mg [Glucophage XR 500 MG] 500 mg PO DAILY 03/04/16 [History] Metoprolol Tartrate 25 mg [Lopressor 25MG Tab] 25 mg PO DAILY 03/04/16 [History] Polyethylene Glycol 3350 17 gm [Miralax Powder 17GM PACKET] 17 gm PO DAILY 03/04/16 [History] Simvastatin 40 mg [Zocor 40 mg] 40 mg PO DAILY 03/04/16 [History] Tramadol HCl 50 mg [Ultram 50 mg] 50 mg PO UD 03/04/16 [History] Verapamil HCl Sr [Isoptin S.r. 240 mg] 240 mg PO DAILY 03/04/16 [History] Calcium Carb, Citrate/Vit D3 [Calcium + D3 ER Tablet] 1 each PO DAILY 12/15/16 [History] Hx Tetanus, Diphtheria Vaccination/Date Given: No Hx Influenza Vaccination/Date Given: Yes Hx Pneumococcal Vaccination/Date Given: Yes Immunizations Up to Date: Yes Travel Risk - International Travel Have you traveled outside of the country in past 3 weeks: No - Coronavirus Screening Are you exhibiting any of the following symptoms?: No Close contact with a COVID-19 positive Pt in past 14-21 Days: No - Vaccine Status Have you recieved a Covid-19 vaccination: Yes 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 HAD STENTS 5-6 YEARS AGO. PT. REPORTS SHE HAS ANGINA OCCASIONALLY. PT. SUSTAINED VERTEBRAL FXS IN 1985. HX L-SPINE OA. - Past Surgical History Past Surgical History: Yes Cardiac: Cardiac Stent Gastrointestinal: Cholecystectomy Musculoskeletal: Orthopedic Surgery Female Surgical History: Hysterectomy - Social History Smoking Status: Never smoker Exposure to second hand smoke: No Drug Use: none Patient Lives Alone: No - Nursing Vital Signs Nursing Vital Signs: Initial Vital Signs Temperature 97.6 F 08/12/21 16:07 Pulse Rate 82 08/12/21 16:07 Respiratory Rate 19 08/12/21 16:07 Blood Pressure 210/112 08/12/21 16:07 O2 Sat by Pulse Oximetry 98 08/12/21 16:07 Pain Scale Pain Intensity 0 Hypertensive - Lynne Coma Scale Best Eye Response (Lynne): (4) open spontaneously Best Verbal Response (Creighton): (4) confused conversation Best Motor Response (Creighton): (6) obeys commands Creighton Total: 14 - Physical Exam General Appearance: no apparent distress Eye Exam: bilateral eye: normal inspection, PERRL, EOMI Ears, Nose, Throat Exam: normal ENT inspection, TMs normal, pharynx normal, moist mucous membranes Neck Exam: normal inspection, non-tender, supple, full range of motion, No meningismus, No mass, No Brudzinski, No Kernig's Respiratory: normal breath sounds, lungs clear, airway intact, No respiratory distress Cardiovascular: regular rate/rhythm, normal heart sounds, normal peripheral pulses, capillary refill <2 sec, No murmur Gastrointestinal: soft, normal bowel sounds, No tenderness Back Exam: normal inspection, normal range of motion, No CVA tenderness, No vertebral tenderness Extremity Exam: normal inspection, normal range of motion Peripheral Pulses: carotid (R): 2+, carotid (L): 2+ Mental Status: alert, disoriented to time, No disoriented to person, No disoriented to place brick pointer Exam: normal hearing, normal speech, PERRL, facial droop (Left) DTR: bicep (R): 2+, bicep (L): 2+ Skin Exam: normal color, warm, dry SpO2 Interpretation: normal SpO2: 98 O2 Delivery: Room Air - Course Nursing assessment & vital signs reviewed: Yes EKG Interpreted by Me: RATE (NSR/rate 70/Prolonged QT-QTc/Nonspecific Twave abnormality/No ST changes) - CT Exams Head CT Interpretation: Tele-radiologist Report (CT head-nothing acute per telerad) Ordered Tests: Active Orders 24 hr Category Date Time Status EKG-ER Only STAT Care 08/12/21 16:08 Active NPO (ED) STAT Care 08/12/21 16:08 Active Tele-Health Consult ROUTINE Cons 08/12/21 18:21 Active CHEST 1 VIEW (PORTABLE) Stat Exams 08/12/21 17:54 Ordered HEAD WITHOUT CONTRAST [CT] Stat Exams 08/12/21 16:05 Taken CBC W DIFF Stat Lab 08/12/21 16:40 Completed CMP Stat Lab 08/12/21 16:40 Completed CULTURE,URINE Stat Lab 08/12/21 16:36 Received Lactic Acid Stat Lab 08/12/21 16:43 Completed PROTIME WITH INR Stat Lab 08/12/21 16:40 Completed PTT Stat Lab 08/12/21 16:40 Completed TROPONIN Q3H Lab 08/12/21 16:40 Completed TROPONIN Q3H Lab 08/12/21 19:15 Ordered TROPONIN Q3H Lab 08/12/21 22:15 Ordered TROPONIN Q3H Lab 08/13/21 01:15 Ordered TROPONIN Q3H Lab 08/13/21 04:15 Ordered UA W/RFX CULTURE Stat Lab 08/12/21 16:36 Completed Medication Summary Discontinued Medications Generic Name Dose Route Start Last Admin Trade Name Bell PRN Reason Stop Dose Admin Clonidine 0.2 mg 08/12/21 16:41 08/12/21 16:46 Clonidine Hcl 0.1 Mg Tablet PO 08/12/21 16:42 0.2 mg STAT ONE Administration Clonidine Confirm 08/12/21 16:44 Clonidine Hcl 0.1 Mg Tablet Administered 08/12/21 16:45 Dose 0.2 mg .ROUTE .STK-MED ONE Sodium Chloride 1,000 mls @ 999 mls/hr 08/12/21 17:19 08/12/21 18:22 Sodium Chloride 0.9% 1000 Ml IV 08/12/21 18:19 Infused .Q1H1M STA Infusion Sodium Chloride Confirm 08/12/21 17:20 Sodium Chloride 0.9% 1000 Ml Administered 08/12/21 17:21 Dose 1,000 mls @ ud .ROUTE .STK-MED ONE Labetalol HCl 20 mg 08/12/21 17:34 08/12/21 17:45 Labetalol Hcl 20 Mg/4 Ml Disp.Syringe IV 08/12/21 17:35 Not Given STAT ONE Labetalol HCl Confirm 08/12/21 17:37 Labetalol Hcl 20 Mg/4 Ml Disp.Syringe Administered 08/12/21 17:38 Dose 20 mg IV .STK-MED ONE Lab/Rad Data: Laboratory Result Diagrams 08/12/21 16:40 08/12/21 16:40 Laboratory Results 08/12/21 08/12/21 08/12/21 Range/Units 16:43 16:40 16:40 WBC (4.0-10.5) x10^3/uL RBC (4.1-5.4) x10^6/uL Hgb (12.0-16.0) g/dL Hct (35-47) % MCV (78-100) fL MCH (26-32) pg MCHC (32-36) g/dL RDW (11.5-14.0) % Plt Count (150-450) x10^3/uL MPV (7.5-11.0) fL Gran % (36.0-66.0) % Immature Gran % (Auto) (0.00-0.4) % Nucleat RBC Rel Count (0.00-0.1) % Eos # (Auto) (0-0.5) x10^3/uL Immature Gran # (Auto) (0.00-0.03) x10^3u/L Absolute Lymphs (auto) (1.0-4.6) x10^3/uL Absolute Monos (auto) (0.0-1.3) x10^3/uL Absolute Nucleated RBC (0.00-0.01) x10^3u/L Lymphocytes % (24.0-44.0) % Monocytes % (0.0-12.0) % Eosinophils % (0.00-5.0) % Basophils % (0.0-0.4) % Absolute Granulocytes (1.4-6.9) x10^3/uL Basophils # (0-0.4) x10^3/uL PT 10.3 (9.4-12.5) SECONDS INR 0.97 (0.8-3.0) APTT 25.0 L (25.1-36.5) SECONDS Sodium (137-145) mmol/L Potassium (3.5-5.1) mmol/L Chloride (98-107) mmol/L Carbon Dioxide (22-30) mmol/L Anion Gap (5-15) MEQ/L BUN (7-17) mg/dL Creatinine (0.52-1.04) mg/dL Estimated GFR ML/MIN Glucose (74-106) mg/dL Lactic Acid 1.0 (0.4-2.0) Calcium (8.4-10.2) mg/dL Total Bilirubin (0.2-1.3) mg/dL AST (14-36) U/L ALT (0-35) U/L Alkaline Phosphatase (38-126) U/L Troponin I < 0.012 (0.000-0.034) ng/mL Serum Total Protein (6.3-8.2) g/dL Albumin (3.5-5.0) g/dL Urinalys Dipstick Clnc Urine Color (YELLOW) Urine Appearance (CLEAR) Urine pH (5-6) Ur Specific Ider (1.005-1.025) POC Urine Protein Conf (Negative) Urine Ketones (NEGATIVE) Urine Nitrite (NEGATIVE) Urine Bilirubin (NEGATIVE) Urine Urobilinogen (0-1) mg/dL Urine Leukocytes (NEGATIVE) Urine WBC (Auto) (0-5) /HPF Urine RBC (Auto) (0-2) /HPF U Epithel Cells (Auto) (FEW) /HPF Urine Bacteria (Auto) (NEGATIVE) /HPF Urine RBC (0-5) Gabriele/ul Ur Culture Indicated? Urine Glucose (NEGATIVE) mg/dL 08/12/21 08/12/21 08/12/21 Range/Units 16:40 16:40 16:36 WBC 7.5 (4.0-10.5) x10^3/uL RBC 3.80 L (4.1-5.4) x10^6/uL Hgb 13.2 (12.0-16.0) g/dL Hct 39.8 (35-47) % MCV 104.7 H (78-100) fL MCH 34.7 H (26-32) pg MCHC 33.2 (32-36) g/dL RDW 13.1 (11.5-14.0) % Plt Count 183 (150-450) x10^3/uL MPV 10.6 (7.5-11.0) fL Gran % 69.9 H (36.0-66.0) % Immature Gran % (Auto) 0.4 (0.00-0.4) % Nucleat RBC Rel Count 0.0 (0.00-0.1) % Eos # (Auto) 0.03 (0-0.5) x10^3/uL Immature Gran # (Auto) 0.03 (0.00-0.03) x10^3u/L Absolute Lymphs (auto) 1.55 (1.0-4.6) x10^3/uL Absolute Monos (auto) 0.62 (0.0-1.3) x10^3/uL Absolute Nucleated RBC 0.00 (0.00-0.01) x10^3u/L Lymphocytes % 20.6 L (24.0-44.0) % Monocytes % 8.2 (0.0-12.0) % Eosinophils % 0.4 (0.00-5.0) % Basophils % 0.5 (0.0-0.4) % Absolute Granulocytes 5.25 (1.4-6.9) x10^3/uL Basophils # 0.04 (0-0.4) x10^3/uL PT (9.4-12.5) SECONDS INR (0.8-3.0) APTT (25.1-36.5) SECONDS Sodium 140 (137-145) mmol/L Potassium 3.4 L (3.5-5.1) mmol/L Chloride 99 (98-107) mmol/L Carbon Dioxide 30 (22-30) mmol/L Anion Gap 14.8 (5-15) MEQ/L BUN 34 H (7-17) mg/dL Creatinine 1.63 H (0.52-1.04) mg/dL Estimated GFR 32.5 ML/MIN Glucose 106 (74-106) mg/dL Lactic Acid (0.4-2.0) Calcium 9.8 (8.4-10.2) mg/dL Total Bilirubin 0.50 (0.2-1.3) mg/dL AST 40 H (14-36) U/L ALT 64 H (0-35) U/L Alkaline Phosphatase 72 (38-126) U/L Troponin I (0.000-0.034) ng/mL Serum Total Protein 8.2 (6.3-8.2) g/dL Albumin 5.1 H (3.5-5.0) g/dL Urinalys Dipstick Clnc MAIN LAB Urine Color YELLOW (YELLOW) Urine Appearance CLEAR (CLEAR) Urine pH 5.0 (5-6) Ur Specific Ider <=1.005 (1.005-1.025) POC Urine Protein Conf NEGATIVE (Negative) Urine Ketones NEGATIVE (NEGATIVE) Urine Nitrite NEGATIVE (NEGATIVE) Urine Bilirubin NEGATIVE (NEGATIVE) Urine Urobilinogen 0.2 (0-1) mg/dL Urine Leukocytes NEGATIVE (NEGATIVE) Urine WBC (Auto) NONE (0-5) /HPF Urine RBC (Auto) NONE (0-2) /HPF U Epithel Cells (Auto) NONE (FEW) /HPF Urine Bacteria (Auto) NONE (NEGATIVE) /HPF Urine RBC NEGATIVE (0-5) Gabriele/ul Ur Culture Indicated? YES Urine Glucose NEGATIVE (NEGATIVE) mg/dL - Progress Progress Note: 08/12/21 17:[address] Bello wants teleneuro consult before admit Hypertension treated w 0.2 po Clonidine 08/12/21 18:36 Teleneuro consult-Admit/MRI/MRA/ECHO/Carotid Dopplers 08/12/21 18:38 324mg ASA po Clonidine0.2mg w good BP response Counseled pt/family regarding: lab results, diagnosis, need for follow-up, rad results - Departure Clinical Impression: CVA (cerebral vascular accident), Hypertension Condition: Stable Critical Care Time: Yes Critical Care Time(excluding separately billable procedures): Critical 30-74 mins Referrals: ANJELICA MORENO MD [Primary Care Provider] - Follow up/PCP as directed
[2021-08-12] MEDS ORDERED: CLONIDINE 0.1 MG TABLET ONE (16:44)
[2021-08-12 17:00] LABS: Absolute Neutrophil Ct (ANC) 5.25 x10^3/uL (1.4-6.9); Basophil (Absolute #) 0.04 x10^3/uL (0-0.4); Eosinophil % 0.4 % (0.00-5.0); Eosinophil (Absolute #) 0.03 x10^3/uL (0-0.5); Hematocrit 39.8 % (35-47); Hemoglobin 13.2 g/dL (12.0-16.0); Lymphocyte (Absolute #) 1.55 x10^3/uL (1.0-4.6); Lymphocytes % 20.6 % (24.0-44.0); Mean Cell Volume 104.7 fL (78-100); Mean Corpuscular Hemoglobin 34.7 pg (26-32); Mean Corpuscular Hgb Concent. 33.2 g/dL (32-36); Mean Platelet Volume 10.6 fL (7.5-11.0); Monocyte (Absolute #) 0.62 x10^3/uL (0.0-1.3); Monocytes % 8.2 % (0.0-12.0); Neutrophil % 69.9 % (36.0-66.0); Platelet Count 183 x10^3/uL (150-450); Red Cell Distribution Width 13.1 % (11.5-14.0); White Blood Count 7.5 x10^3/uL (4.0-10.5)
[2021-08-12 17:08] LABS: ALBUMIN 5.1 g/dL (3.5-5.0); ANION GAP 14.8 MEQ/L (5-15); BILIRUBIN,TOTAL 0.5 mg/dL (0.2-1.3); Creatinine 1 1.63 mg/dL (0.52-1.04); EST GLOMERULAR FILTRATION RATE 32.5 ML/MIN; Potassium 3.4 mmol/L (3.5-5.1); Total Protein 8.2 g/dL (6.3-8.2)
[2021-08-12 17:11] LABS: INR 0.97 (0.8-3.0); PROTIME 10.3 SECONDS (9.4-12.5)
[2021-08-12 17:14] LABS: Calcium 9.8 mg/dL (8.4-10.2)
[2021-08-12] MEDS ORDERED: Sodium Chloride 0.9% 1000 ML 1,000 ML IV STA (17:19)
[2021-08-12] MEDS ORDERED: Sodium Chloride 0.9% 1000 ML 1,000 ML ONE (17:20)
[2021-08-12 17:26] LABS: Appearance CLEAR (CLEAR)
[2021-08-12 17:27] LABS: Bilirubin NEGATIVE (NEGATIVE); Dipstick done @ ? MAIN LAB; Glucose NEGATIVE (NEGATIVE); Ketones NEGATIVE (NEGATIVE); Nitrite NEGATIVE (NEGATIVE); Protein,Urine Dip NEGATIVE (Negative); RBC NEGATIVE Ery/ul (0-5); Specific Gravity <=1.005 (1.005-1.025); Urobilinogen 0.2 mg/dL (0-1)
[2021-08-12 17:29] LABS: Urine Cultured Indicated? YES
[2021-08-12] MEDS ORDERED: TRANDATE 20 MG/4 ML SYRINGE IV ONE (17:37)
[2021-08-12] MEDS: TRANDATE 20 MG/4 ML SYRINGE IV ONE ×2 (17:40→17:45)
[2021-08-12] MEDS: ECOTRIN 81 MG PO ONE ×2 (18:42)
[2021-08-12] MEDS ORDERED: BABY ASPIRIN 81 MG CHEW PO ONE (18:48)
[2021-08-12] MEDS ORDERED: BABY ASPIRIN 81 MG CHEW ONE (18:50)
[2021-08-12] MEDS ORDERED: Zofran 4 MG/2 ML VIAL IV PRN (19:09)
[2021-08-12] MEDS: Sodium Chloride 0.9% 1000 ML 1,000 ML IV SCH (19:21)
[2021-08-12 19:30] LABS: INFLUENZA A NEGATIVE (NEGATIVE); INFLUENZA B NEGATIVE (NEGATIVE); RESPIRATORY SYNCTIAL VIRUS NEGATIVE (Negative); SARS-CoV-2 Xpert Express NEGATIVE (NEGATIVE)
--- NOTE | 2021-08-12 20:46 | XRAY ---
Indication: Confusion. Stroke. Multiple contiguous axial images obtained through the head without contrast. Comparison: September 10, 2020 Again age-appropriate global atrophy and mild/moderate periventricular degenerative micro-ischemia bilaterally. No acute intracranial hemorrhage, abnormal extra-axial fluid collection, or mass effect. Fourth ventricle is midline without hydrocephalus. Bony calvarium intact. Visualized paranasal sinuses and mastoid air cells are clear. Impression: Continued nonacute senile brain. Comment: Preliminary interpretation made by [facility]. No critical discrepancy.
--- NOTE | 2021-08-12 20:48 | XRAY ---
Indication: Lethargy. Comparison: December 15, 2016 Portable chest again hyperinflated with left mid lung and right suprahilar calcified granulomas. New minimal left base subsegmental atelectasis/scarring. No focal infiltrate, consolidation, or large effusion. Heart not enlarged with interval enlarging large hiatal hernia with intrathoracic stomach. Bony thorax intact again with mild osteopenia and degenerative changes. New epidural stimulator leads terminate T7. Impression: Nonacute chest with chronic features.
[2021-08-12] MEDS ORDERED: NORVASC 5 MG PO SCH (22:00)
[2021-08-12] MEDS ORDERED: K-LYTE PO ONE (22:54)
[2021-08-13] MEDS: TYLENOL 325 MG PO PRN ×2 (01:44→20:10)
[2021-08-13 05:37] LABS: Absolute Neutrophil Ct (ANC) 5.19 x10^3/uL (1.4-6.9); Basophil (Absolute #) 0.03 x10^3/uL (0-0.4); Eosinophil % 0.9 % (0.00-5.0); Eosinophil (Absolute #) 0.07 x10^3/uL (0-0.5); Hematocrit 35.2 % (35-47); Hemoglobin 11.5 g/dL (12.0-16.0); Lymphocyte (Absolute #) 1.74 x10^3/uL (1.0-4.6); Lymphocytes % 22.7 % (24.0-44.0); Mean Cell Volume 105.1 fL (78-100); Mean Corpuscular Hemoglobin 34.3 pg (26-32); Mean Corpuscular Hgb Concent. 32.7 g/dL (32-36); Mean Platelet Volume 10.6 fL (7.5-11.0); Monocyte (Absolute #) 0.62 x10^3/uL (0.0-1.3); Monocytes % 8.1 % (0.0-12.0); Neutrophil % 67.5 % (36.0-66.0); Platelet Count 155 x10^3/uL (150-450); Red Blood Count 3.35 x10^6/uL (4.1-5.4); Red Cell Distribution Width 13.2 % (11.5-14.0); White Blood Count 7.7 x10^3/uL (4.0-10.5)
[2021-08-13 05:46] LABS: ALBUMIN 3.7 g/dL (3.5-5.0); BILIRUBIN,TOTAL 0.5 mg/dL (0.2-1.3); Calcium 8.3 mg/dL (8.4-10.2); Creatinine 1 1.3 mg/dL (0.52-1.04); EST GLOMERULAR FILTRATION RATE 42.2 ML/MIN; Potassium 4.4 mmol/L (3.5-5.1)
[2021-08-13] MEDS: Sodium Chloride 0.9% 1000 ML 1,000 ML IV SCH ×2 (06:26→20:10)
[2021-08-13] MEDS: PROTONIX 40 MG IV IV SCH (09:51)
[2021-08-13] MEDS: HYDROCODONE-ACETAMIN 10-325 MG PO PRN ×2 (09:52→16:53)
[2021-08-13] MEDS ORDERED: Ecotrin 325 MG PO SCH (10:00)
[2021-08-13] MEDS ORDERED: ZOFRAN ODT 4 MG PO PRN (14:45)
[2021-08-13] MEDS ORDERED: Miralax Powder 17GM PACKET PO PRN (14:45)
[2021-08-13] MEDS ORDERED: NON-FORMULARY ITEM (Exenatide Microspheres [Bydureon Bcise] 2 MG/0.85 ML Auto.Injct) SQ SCH (14:45)
[2021-08-13] MEDS ORDERED: MEDICATION INTERVENTION MC SCH ×2 (15:00)
[2021-08-13] MEDS: ZOCOR 20MG PO SCH (16:53)
[2021-08-13] MEDS: ISOPTIN SR PO SCH (16:53)
[2021-08-13] MEDS: NORVASC 5 MG PO SCH (16:53)
[2021-08-13] MEDS: Lopressor 25MG Tab PO SCH (16:53)
[2021-08-13] MEDS: SYNTHROID 125 MCG PO SCH (16:54)
[2021-08-13] MEDS: Imdur 30 MG PO SCH (16:54)
--- NOTE | 2021-08-13 18:00 | PCM.HP ---
History of Present Illness - Chief Complaint Chief Complaint: CVA/Hypertension History of Present Illness: is a 75 year old female who was brought to ER by the neighbor who noticed her slurred speech and stumbling. . Medications & Allergies Home Medications: Home Medication List Amlodipine Besylate 10 mg [Norvasc 10 MG] 10 mg PO DAILY 03/04/16 [History Confirmed 08/12/21] Aspirin 81 mg PO DAILY 03/04/16 [History Confirmed 08/12/21] Budesonide/Formoterol Fumarate [Symbicort 80-4.5 Mcg Inhaler] 6.9 gm IH UD 03/04/16 [History Confirmed 08/12/21] Isosorbide Mononitrate 30 mg [Imdur 30 MG] 30 mg PO DAILY 03/04/16 [History Confirmed 08/12/21] Levothyroxine Sodium [Synthroid] 125 mcg PO DAILY 03/04/16 [History Confirmed 08/12/21] Metoprolol Tartrate 25 mg [Lopressor 25MG Tab] 25 mg PO DAILY 03/04/16 [History Confirmed 08/12/21] Polyethylene Glycol 3350 17 gm [Miralax Powder 17GM PACKET] 17 gm PO DAILY PRN PRN 03/04/16 [History Confirmed 08/12/21] Simvastatin 40 mg [Zocor 40 mg] 40 mg PO DAILY 03/04/16 [History Confirmed 08/12/21] Verapamil HCl Sr [Isoptin S.r. 240 mg] 240 mg PO DAILY 03/04/16 [History Confirmed 08/12/21] Ondansetron ODT 4 MG [Zofran Odt 4 mg] 4 mg PO Q6H PRN PRN #10 tab.rapdis 05/29/20 [Rx Confirmed 08/12/21] Exenatide Microspheres [Bydureon Bcise] 1 misc SQ WEEKLY 08/12/21 [History Confirmed 08/12/21] Allergies/Adverse Reactions: Allergies Allergy/AdvReac Type Severity Reaction Status Date / Time No Known Drug Allergies Allergy Verified 08/12/21 18:25 - Past Medical History Past Medical History: Yes Neurological History: No Pertinent History Cardiac History: Arrhythmia, Coronary Artery Disease, Hypertension, Myocardial Infarction ([place]) Respiratory History: Bronchitis Endocrine Medical History: Diabetes Type II, Hypothyroidism Musculoskelatal History: Osteoarthritis, Other Pyscho-Social History: No Pertinent History Reproductive Disorders: No Pertinent History Comment: PT. HAD STENTS 5-6 YEARS AGO. PT. REPORTS SHE HAS ANGINA OCCASIONALLY. PT. SUSTAINED VERTEBRAL FXS IN 1985. HX L-SPINE OA. - Female History Are you now?: No - Past Surgical History Past Surgical History: Yes Cardiac History: Cardiac Stent GI Surgical History: Cholecystectomy Musculskeletal Surgical Hx: Orthopedic Surgery Female Surgical History: Hysterectomy - Social History Smoking Status: Former smoker Exposure to second hand smoke: No Alcohol: None Drug Use: none - Physical Exam Vital Signs: Vital Signs - 24 hr Temp Pulse Resp BP Pulse Ox 08/13/21 16:00 97.1 F 72 10 L 94 L 08/13/21 12:00 95.0 F 73 8 L 178/81 92 L 08/13/21 07:45 97.1 F 75 7 L 175/86 95 08/13/21 04:15 97.9 F 68 18 156/79 96 08/12/21 23:33 142/72 08/12/21 21:22 97.7 F 62 18 164/74 95 08/12/21 19:39 63 18 110/65 95 08/12/21 19:25 68 16 140/72 98 08/12/21 18:39 98 08/12/21 18:09 67 18 150/75 94 L Results - Labs Lab/Micro Results: Lab Results-Last 24 Hours 08/12/21 08/12/21 08/12/21 Range/Units 18:08 19:15 22:19 WBC (4.0-10.5) x10^3/uL RBC (4.1-5.4) x10^6/uL Hgb (12.0-16.0) g/dL Hct (35-47) % MCV (78-100) fL MCH (26-32) pg MCHC (32-36) g/dL RDW (11.5-14.0) % Plt Count (150-450) x10^3/uL MPV (7.5-11.0) fL Gran % (36.0-66.0) % Immature Gran % (Auto) (0.00-0.4) % Nucleat RBC Rel Count (0.00-0.1) % Eos # (Auto) (0-0.5) x10^3/uL Immature Gran # (Auto) (0.00-0.03) x10^3u/L Absolute Lymphs (auto) (1.0-4.6) x10^3/uL Absolute Monos (auto) (0.0-1.3) x10^3/uL Absolute Nucleated RBC (0.00-0.01) x10^3u/L Lymphocytes % (24.0-44.0) % Monocytes % (0.0-12.0) % Eosinophils % (0.00-5.0) % Basophils % (0.0-0.4) % Absolute Granulocytes (1.4-6.9) x10^3/uL Basophils # (0-0.4) x10^3/uL Sodium (137-145) mmol/L Potassium (3.5-5.1) mmol/L Chloride (98-107) mmol/L Carbon Dioxide (22-30) mmol/L Anion Gap (5-15) MEQ/L BUN (7-17) mg/dL Creatinine (0.52-1.04) mg/dL Estimated GFR ML/MIN Glucose (74-106) mg/dL Calcium (8.4-10.2) mg/dL Total Bilirubin (0.2-1.3) mg/dL AST (14-36) U/L ALT (0-35) U/L Alkaline Phosphatase (38-126) U/L Troponin I < 0.012 < 0.012 (0.000-0.034) ng/mL Serum Total Protein (6.3-8.2) g/dL Albumin (3.5-5.0) g/dL Influenza Type A Ag NEGATIVE (NEGATIVE) Influenza Type B Ag NEGATIVE (NEGATIVE) RSV (PCR) NEGATIVE (Negative) SARS-CoV-2 (PCR) NEGATIVE (NEGATIVE) 08/13/21 08/13/21 08/13/21 Range/Units 01:29 04:25 04:25 WBC 7.7 (4.0-10.5) x10^3/uL RBC 3.35 L (4.1-5.4) x10^6/uL Hgb 11.5 L (12.0-16.0) g/dL Hct 35.2 (35-47) % MCV 105.1 H (78-100) fL MCH 34.3 H (26-32) pg MCHC 32.7 (32-36) g/dL RDW 13.2 (11.5-14.0) % Plt Count 155 (150-450) x10^3/uL MPV 10.6 (7.5-11.0) fL Gran % 67.5 H (36.0-66.0) % Immature Gran % (Auto) 0.4 (0.00-0.4) % Nucleat RBC Rel Count 0.0 (0.00-0.1) % Eos # (Auto) 0.07 (0-0.5) x10^3/uL Immature Gran # (Auto) 0.03 (0.00-0.03) x10^3u/L Absolute Lymphs (auto) 1.74 (1.0-4.6) x10^3/uL Absolute Monos (auto) 0.62 (0.0-1.3) x10^3/uL Absolute Nucleated RBC 0.00 (0.00-0.01) x10^3u/L Lymphocytes % 22.7 L (24.0-44.0) % Monocytes % 8.1 (0.0-12.0) % Eosinophils % 0.9 (0.00-5.0) % Basophils % 0.4 (0.0-0.4) % Absolute Granulocytes 5.19 (1.4-6.9) x10^3/uL Basophils # 0.03 (0-0.4) x10^3/uL Sodium (137-145) mmol/L Potassium (3.5-5.1) mmol/L Chloride (98-107) mmol/L Carbon Dioxide (22-30) mmol/L Anion Gap (5-15) MEQ/L BUN (7-17) mg/dL Creatinine (0.52-1.04) mg/dL Estimated GFR ML/MIN Glucose (74-106) mg/dL Calcium (8.4-10.2) mg/dL Total Bilirubin (0.2-1.3) mg/dL AST (14-36) U/L ALT (0-35) U/L Alkaline Phosphatase (38-126) U/L Troponin I < 0.012 < 0.012 (0.000-0.034) ng/mL Serum Total Protein (6.3-8.2) g/dL Albumin (3.5-5.0) g/dL Influenza Type A Ag (NEGATIVE) Influenza Type B Ag (NEGATIVE) RSV (PCR) (Negative) SARS-CoV-2 (PCR) (NEGATIVE) 08/13/21 Range/Units 04:25 WBC (4.0-10.5) x10^3/uL RBC (4.1-5.4) x10^6/uL Hgb (12.0-16.0) g/dL Hct (35-47) % MCV (78-100) fL MCH (26-32) pg MCHC (32-36) g/dL RDW (11.5-14.0) % Plt Count (150-450) x10^3/uL MPV (7.5-11.0) fL Gran % (36.0-66.0) % Immature Gran % (Auto) (0.00-0.4) % Nucleat RBC Rel Count (0.00-0.1) % Eos # (Auto) (0-0.5) x10^3/uL Immature Gran # (Auto) (0.00-0.03) x10^3u/L Absolute Lymphs (auto) (1.0-4.6) x10^3/uL Absolute Monos (auto) (0.0-1.3) x10^3/uL Absolute Nucleated RBC (0.00-0.01) x10^3u/L Lymphocytes % (24.0-44.0) % Monocytes % (0.0-12.0) % Eosinophils % (0.00-5.0) % Basophils % (0.0-0.4) % Absolute Granulocytes (1.4-6.9) x10^3/uL Basophils # (0-0.4) x10^3/uL Sodium 138 (137-145) mmol/L Potassium 4.4 D (3.5-5.1) mmol/L Chloride 103 (98-107) mmol/L Carbon Dioxide 28 (22-30) mmol/L Anion Gap 11.0 (5-15) MEQ/L BUN 27 H (7-17) mg/dL Creatinine 1.30 H (0.52-1.04) mg/dL Estimated GFR 42.2 ML/MIN Glucose 96 (74-106) mg/dL Calcium 8.3 L D (8.4-10.2) mg/dL Total Bilirubin 0.50 (0.2-1.3) mg/dL AST 32 (14-36) U/L ALT 45 H (0-35) U/L Alkaline Phosphatase 50 (38-126) U/L Troponin I (0.000-0.034) ng/mL Serum Total Protein 6.0 L (6.3-8.2) g/dL Albumin 3.7 (3.5-5.0) g/dL Influenza Type A Ag (NEGATIVE) Influenza Type B Ag (NEGATIVE) RSV (PCR) (Negative) SARS-CoV-2 (PCR) (NEGATIVE) Microbiology 08/12/21 16:36 Urine Culture - Preliminary Urine, Catheterized NO GROWTH TO DATE - Radiology Impressions Radiology Exams & Impressions: Radiology Procedures Category Date Time Status CHEST 1 VIEW (PORTABLE) Stat Exams 08/12/21 17:54 Completed ECHO W/2D AND DOPPLER [US] Stat Exams 08/14/21 08:00 Ordered HEAD WITHOUT CONTRAST [CT] Stat Exams 08/12/21 16:05 Completed MRA BRAIN WITHOUT CONTRAST [MRI] Stat Exams 08/14/21 08:00 Ordered MRI BRAIN W/O CONTRAST [MRI] Stat Exams 08/14/21 08:00 Ordered
[2021-08-14] MEDS: HYDROCODONE-ACETAMIN 10-325 MG PO PRN ×3 (06:22→18:42)
--- NOTE | 2021-08-14 07:34 | PCM.NOTE ---
Date and Time: 08/14/21732 Subjective Assessment: doing ok - Review of Systems Constitutional: No Fever, No Chills Eyes: No Symptoms Ears, Nose, & Throat: No Symptoms Respiratory: No Cough, No Short Of Breath Cardiac: No Chest Pain, No Edema, No Syncope Abdominal/Gastrointestinal: No Abdominal Pain, No Nausea, No Vomiting, No Diarrhea Genitourinary Symptoms: No Dysuria Musculoskeletal: No Back Pain, No Neck Pain Skin: No Rash Neurological: No Dizziness, No Focal Weakness, No Sensory Changes Psychological: No Symptoms Endocrine: No Symptoms Hematologic/Lymphatic: No Symptoms Immunological/Allergic: No Symptoms Objective Exam General Appearance: no apparent distress, alert Neurologic Exam: alert, oriented x 3, cooperative, normal mood/affect, nml cerebellar function, sensation nml, No motor deficits Skin Exam: normal color, warm, dry Eye Exam: PERRL, EOMI, eyes nml inspection Ears, Nose, Throat Exam: normal ENT inspection, pharynx normal, moist mucous membranes Neck Exam: normal inspection, non-tender, supple, full range of motion Respiratory Exam: normal breath sounds, lungs clear, No respiratory distress Cardiovascular Exam: regular rate/rhythm, normal heart sounds Gastrointestinal/Abdomen Exam: soft, No tenderness, No mass Extremity Exam: normal inspection, normal range of motion Back Exam: normal inspection, normal range of motion, No CVA tenderness, No vertebral tenderness Pelvic Exam: deferred Rectal Exam: deferred OBJECTIVE DATA Vital Signs: Vital Signs - 24 hr Temp Pulse Resp BP Pulse Ox 08/14/21 04:00 98.2 F 70 16 107/61 93 L 08/13/21 23:28 97.7 F 63 16 102/57 96 08/13/21 20:00 97.8 F 57 L 18 89/54 97 08/13/21 16:00 97.1 F 72 10 L 94 L 08/13/21 12:00 95.0 F 73 8 L 178/81 92 L 08/13/21 07:45 97.1 F 75 7 L 175/86 95 Pain Assessment - Last Documented Pain Intensity 8 Pain Scale Used 0-10 Pain Scale Intake and Output: Intake & Output 08/11/21 08/12/21 08/13/21 08/14/21 11:59 11:59 11:59 11:59 Intake Total 1643 3169 Output Total 3967 3250 Balance 243 -81 Weight 57 kg Radiology Exams: Radiology Procedures Category Date Time Status CHEST 1 VIEW (PORTABLE) Stat Exams 08/12/21 17:54 Completed ECHO W/2D AND DOPPLER [US] Stat Exams 08/14/21 08:00 Ordered HEAD WITHOUT CONTRAST [CT] Stat Exams 08/12/21 16:05 Completed MRA BRAIN WITHOUT CONTRAST [MRI] Stat Exams 08/14/21 08:00 Ordered MRI BRAIN W/O CONTRAST [MRI] Stat Exams 08/14/21 08:00 Ordered Assessment/Plan (1) CVA (cerebral vascular accident) Current Visit: Yes Status: Acute Qualifiers: CVA mechanism: unspecified Qualified Code(s): I63.9 - Cerebral infarction, unspecified Code(s): I63.9 - CEREBRAL INFARCTION, UNSPECIFIED (2) Hypertension Current Visit: Yes Status: Acute Code(s): I10 - ESSENTIAL (PRIMARY) HYPERTENSION
[2021-08-14] MEDS: Sodium Chloride 0.9% 1000 ML 1,000 ML IV SCH (09:30)
[2021-08-14] MEDS: ECOTRIN 81 MG PO SCH (09:49)
[2021-08-14] MEDS: ISOPTIN SR PO SCH (09:50)
[2021-08-14] MEDS: NORVASC 5 MG PO SCH (09:50)
[2021-08-14] MEDS: Imdur 30 MG PO SCH (09:50)
[2021-08-14] MEDS: Lopressor 25MG Tab PO SCH (09:50)
[2021-08-14] MEDS: PROTONIX 40 MG IV IV SCH (09:51)
[2021-08-14] MEDS: ZOCOR 20MG PO SCH (09:51)
[2021-08-14] MEDS: SYNTHROID 125 MCG PO SCH (09:51)
[2021-08-14] MEDS ORDERED: NON-FORMULARY ITEM (Simvastatin 40 Mg [Zocor 40 Mg] 40 MG Tablet) PO SCH (10:00)
--- NOTE | 2021-08-14 12:36 | XRAY ---
Indication: CVA [address] head. Sagittal, coronal, and axial MRI brain performed without contrast using T1, T2, FLAIR, diffusion, and ADC sequences. Comparison: None Age-appropriate global atrophy and moderate periventricular degenerative micro-ischemia signal bilaterally. Brainstem demonstrates lesser minimal degenerative micro-ischemia signal. Basal ganglia demonstrates incidental mild prominent Virchow-Enrique spaces. No acute intracranial hemorrhage, abnormal extra-axial fluid collection, or mass effect. Fourth ventricle is midline without hydrocephalus. 7/8 cranial nerve complex bilaterally symmetric. Normal flow-void signal within the major intracerebral circulation. Normal appearing craniocervical junction and sella turcica. Paranasal sinuses are clear. Impression: 1. Normal aging brain including atrophy and degenerative micro-ischemia as detailed. 2. No acute intracranial abnormalities or evidence for evolving large vessel territorial stroke.
--- NOTE | 2021-08-14 12:57 | XRAY ---
Indication: CVA 2 days ago. Multi slab 3-D [id number] MRA [place] performed. Comparison: None Distal internal carotid arteries are bilaterally symmetric without critical stenosis/obstruction. Normal carotid terminus with branching A1 and M1 segments bilaterally. More distal visualized anterior cerebral and middle cerebral arteries are normal in MRA appearance. Posterior circulation demonstrates normal MRA appearance to left/right vertebral, basilar, left/right posterior cerebral, and left/right superior cerebellar arteries. Impression: Negative MRA [place].
[2021-08-15] MEDS: Sodium Chloride 0.9% 1000 ML 1,000 ML IV SCH (01:22)
[2021-08-15] MEDS: HYDROCODONE-ACETAMIN 10-325 MG PO PRN ×3 (01:24→14:11)
--- NOTE | 2021-08-15 08:51 | ECHO ---
DATE: 08/14/2021 INDICATION: Stroke. A transthoracic echocardiograph examination with color Doppler was done. IMPRESSION: 1. NO REGIONAL WALL MOTION ABNORMALITY. ESTIMATED LEFT VENTRICULAR EJECTION FRACTION AROUND 60-65%. 2. MILD MITRAL REGURGITATION. 3. TRACE TRICUSPID REGURGITATION WITH RIGHT VENTRICULAR SYSTOLIC PRESSURE OF 38 MM HG. 4. AORTIC VALVE SCLEROSIS WITH PEAK TRANSAORTIC GRADIENT OF 15. 5. LEFT ATRIAL ENLARGEMENT. 6. LEFT VENTRICULAR HYPERTROPHY. 7. LEFT VENTRICULAR DIASTOLIC DYSFUNCTION. 8. SMALL PERICARDIAL EFFUSION. The left ventricle was visualized and demonstrated adequate motion of all the segments with estimated left ventricular ejection fraction between 60-65%. There is moderate left ventricular hypertrophy. The mitral valve was seen and this opens adequately. There is mild mitral regurgitation. The left atrium is mildly enlarged. Tissue Doppler study of the lateral mitral annulus is suggestive of left ventricular diastolic dysfunction. The aortic valve is sclerotic and the peak gradient across the aortic valve is 15 mm Hg. The right-sided chambers are normal. There is trace tricuspid regurgitation with right ventricular systolic pressure of 38 mm Hg. There is also some evidence of small pericardial effusion.
[2021-08-15] MEDS: ZOCOR 20MG PO SCH (09:00)
[2021-08-15] MEDS: NORVASC 5 MG PO SCH (09:00)
[2021-08-15] MEDS: ISOPTIN SR PO SCH (09:00)
[2021-08-15] MEDS: Imdur 30 MG PO SCH (09:00)
[2021-08-15] MEDS: Lopressor 25MG Tab PO SCH (09:01)
[2021-08-15] MEDS: SYNTHROID 125 MCG PO SCH (09:01)
[2021-08-15] MEDS: ECOTRIN 81 MG PO SCH (09:01)
[2021-08-15] MEDS: PROTONIX 40 MG IV IV SCH (09:01)
[2021-08-15 11:59] VITALS: BP 150/74; PULSE 78; O2SAT 91
--- NOTE | 2021-08-15 17:41 | PCM.DS ---
Discharge Summary Date of Admission: 08/12/21 21:06 Admitting Physician: PARKER SILVEIRA DO Consults: Consults on Case 08/12/21 18:21 Tele-Health Consult ROUTINE Primary Care Provider: ANJELICA MORENO Allergies Allergies No Known Drug Allergies Allergy (Verified 08/12/21 18:25) Hospital Summary - Hospital Course Hospital Course: Chief Complaint Diagnosis CVA/Hypertension Allergies Allergy/AdvReac Type Severity Reaction Status Date / Time No Known Drug Allergies Allergy Verified 08/12/21 18:25 Vital Signs (Last 24 hours) Temp Pulse Resp BP Pulse Ox 08/15/21 11:57 98.9 F 78 17 150/74 91 L 08/15/21 07:57 97.8 F 74 17 163/87 92 L 08/15/21 04:00 97.3 F 75 16 137/75 91 L 08/14/21 23:25 98.9 F 71 16 129/61 99 08/14/21 19:32 98.7 F 68 16 116/58 93 L Home Medications Medication Instructions Recorded Confirmed Last Taken Type Exenatide Microspheres [Bydureon 1 misc SQ WEEKLY 08/12/21 08/12/21 08/10/21 08:00 History Bcise] Current Medications Discontinued Medications Generic Name Dose Route Start Last Admin Trade Name Freq PRN Reason Stop Dose Admin Acetaminophen 650 mg 08/12/21 22:56 08/13/21 20:10 Acetaminophen 325 Mg Tablet PO 09/11/21 22:55 650 mg Q4H PRN PRN Administration pain less than 5 Hydrocodone Bitart/Acetaminophen 1 tablet 08/12/21 22:55 08/15/21 14:11 Hydrocodone/Acetamin 10-325 Mg Tablet PO 08/17/21 22:54 1 tablet Q4H PRN PRN Administration Pain greater than 5 Amlodipine Besylate 10 mg 08/12/21 22:00 08/12/21 23:45 Amlodipine Besylate 5 Mg Tablet PO 09/11/21 21:59 Not Given HS DAE Amlodipine Besylate 10 mg 08/13/21 15:00 08/15/21 09:00 Amlodipine Besylate 5 Mg Tablet PO 09/12/21 14:59 10 mg DAILY DAE Administration Aspirin 324 mg 08/13/21 18:37 08/12/21 18:42 Aspirin 81 Mg Tablet.Ec PO 08/13/21 18:38 Not Given STAT ONE Aspirin 324 mg 08/12/21 18:48 08/12/21 18:52 Aspirin 81 Mg Tab.Chew PO 08/12/21 18:49 324 mg STAT ONE Administration Aspirin Confirm 08/12/21 18:50 Aspirin 81 Mg Tab.Chew Administered 08/12/21 18:51 Dose 324 mg .ROUTE .STK-MED ONE Aspirin 325 mg 08/13/21 10:00 08/13/21 09:52 Aspirin 325 Mg Tablet.Ec PO 09/12/21 09:59 325 mg QAM DAE Administration Aspirin 81 mg 08/14/21 10:00 08/15/21 09:01 Aspirin 81 Mg Tablet.Ec PO 09/13/21 09:59 81 mg DAILY DAE Administration Clonidine 0.2 mg 08/12/21 16:41 08/12/21 16:46 Clonidine Hcl 0.1 Mg Tablet PO 08/12/21 16:42 0.2 mg STAT ONE Administration Clonidine Confirm 08/12/21 16:44 Clonidine Hcl 0.1 Mg Tablet Administered 08/12/21 16:45 Dose 0.2 mg .ROUTE .STK-MED ONE Sodium Chloride 1,000 mls @ 999 mls/hr 08/12/21 17:19 08/12/21 18:22 Sodium Chloride 0.9% 1000 Ml IV 08/12/21 18:19 Infused .Q1H1M STA Infusion Sodium Chloride Confirm 08/12/21 17:20 Sodium Chloride 0.9% 1000 Ml Administered 08/12/21 17:21 Dose 1,000 mls @ ud .ROUTE .STK-MED ONE Sodium Chloride 1,000 mls @ 80 mls/hr 08/12/21 19:15 08/15/21 01:22 Sodium Chloride 0.9% 1000 Ml IV 09/11/21 19:14 80 mls/hr .[id number] DAE Administration Isosorbide Mononitrate 30 mg 08/13/21 15:00 08/15/21 09:00 Isosorbide Mononitrate 30 Mg Tab PO 09/12/21 14:59 30 mg DAILY DAE Administration Labetalol HCl 20 mg 08/12/21 17:34 08/12/21 17:45 Labetalol Hcl 20 Mg/4 Ml Disp.Syringe IV 08/12/21 17:35 Not Given STAT ONE Labetalol HCl Confirm 08/12/21 17:37 Labetalol Hcl 20 Mg/4 Ml Disp.Syringe Administered 08/12/21 17:38 Dose 20 mg IV .STK-MED ONE Levothyroxine Sodium 125 mcg 08/13/21 15:00 08/15/21 09:01 Levothyroxine Sodium 125 Mcg Tablet PO 09/12/21 14:59 125 mcg DAILY DAE Administration Metoprolol Tartrate 25 mg 08/13/21 15:00 08/15/21 09:01 Metoprolol Tartrate 25 Mg Tab PO 09/12/21 14:59 25 mg DAILY DAE Administration Miscellaneous Information 1 each 08/13/21 15:00 Medication Intervention 1 Each Each 09/12/21 14:59 .RN TO CHECK DAE Miscellaneous Information 1 each 08/13/21 15:00 Medication Intervention 1 Each Each 09/12/21 14:59 .RT TO CHECK DAE Ondansetron HCl 4 mg 08/12/21 19:09 Ondansetron Hcl 4 Mg/2 Ml Vial IV 09/11/21 19:08 Q6H PRN PRN NAUSEA/VOMITING Ondansetron HCl 4 mg 08/13/21 14:45 Zofran 4 Mg/Udtablet Orally Disintegrating PO 09/12/21 14:44 Q6H PRN PRN VOMITING Pantoprazole Sodium 40 mg 08/13/21 10:00 08/15/21 09:01 Pantoprazole 40 Mg Vial IV 09/12/21 09:59 40 mg Q24H10 DAE Administration Polyethylene Glycol 17 gm 08/13/21 14:45 Polyethylene Glycol 3350 17 Gm Packet PO 09/12/21 14:44 DAILY PRN PRN CONSTIPATION Potassium Bicarbonate 25 meq 08/12/21 22:54 08/12/21 23:46 Potassium Bicarbonate 25 Meq Tab PO 08/12/21 22:55 25 meq STAT ONE Administration Simvastatin 40 mg 08/13/21 15:00 08/15/21 09:00 Simvastatin 20 Mg Tablet PO 09/12/21 14:59 40 mg DAILY DEA Administration Verapamil HCl 240 mg 08/13/21 15:00 08/15/21 09:00 Verapamil Hcl Sr 240 Mg Tablet.Sa PO 09/12/21 14:59 240 mg DAILY DAE Administration Intake & Output (Last 24 hours) 06/08/14/21 08/15/21 08/16/21 11:59 11:59 11:59 11:59 Intake Total 1643 4129 4296 Output Total 1400 3250 2300 Balance 513 420 4472 Weight 57 kg Orders (Last 24 hours) Category Date Time Status House Regular Diet Diet 08/15/21 Lunch Completed Discharge Routine Discharge 08/15/21 Ordered Discharge/Telephone Order Routine Discharge 08/15/21 Active Patient Care Notes (Last 24 hours) 08/15/21 16:02 Nursing Note by Shameka Felder PATIENT LEFT WITH ON DISCHARGE. VERBALIZES UNDERSTANDING OF ALL DISCHARGE TEACHING AT THIS TIME Initialized on 08/15/21 16:02 - END OF NOTE 08/15/21 14:25 Case Management Note by Cierra Bhandari PATIENT PLANS TO DC HOME TODAY WITH HER TO ASSIST HER. [facility] HAS BEEN NOTIFIED THE ROLLATOR ORDERED 04/16 [facility]. OTPT ORDER FOR PHYSICAL THERAPY AND SPEECH THERAPY SENT TO DR. MORENO TO BE SIGNED. PATIENT DENIES ANY OTHER NEEDS AT TIME OF DC Initialized on 08/15/21 14:25 - END OF NOTE 08/15/21 12:17 Case Management Note by Cierra Bhandari CALLED [facility]- REQUESTED DELIVERY OF ROLLATOR TODAY TO HOSPITAL Initialized on 08/15/21 12:17 - END OF NOTE - Vitals & Intake/Output Vital Signs: Vital Signs Temperature 98.9 F 08/15/21 11:57 Pulse Rate 78 08/15/21 11:57 Respiratory Rate 17 08/15/21 11:57 Blood Pressure 150/74 08/15/21 11:57 O2 Sat by Pulse Oximetry 91 L 08/15/21 11:57 Intake & Output: Intake & Output 08/13/21 08/14/21 08/15/21 08/16/21 11:59 11:59 11:59 11:59 Intake Total 1643 4129 4296 Output Total 1400 3250 2300 Balance 995 329 9111 Weight 57 kg - Lab Result Diagrams: 08/13/21 04:25 08/13/21 04:25 Micro Results-Entire Visit: Microbiology 08/12/21 16:36 Urine Culture - Final Urine, Catheterized NO GROWTH - Radiology Exams Ordered Rad Exams-Entire Visit: Radiology Procedures Category Date Time Status ECHO W/2D AND DOPPLER [US] Stat Exams 08/14/21 10:10 Draft MRA BRAIN WITHOUT CONTRAST [MRI] Stat Exams 08/14/21 08:00 Completed MRI BRAIN W/O CONTRAST [MRI] Stat Exams 08/14/21 08:00 Completed - Procedures and Test Procedures and Tests throughout Hospitalization: Therapy Orders & Screens 08/12/21 21:51 RT Screen per Nursing Assess ONCE Comment: Protocol Order Physician Instructions: Greater than 3 points order RT Admission Screen Reason For Exam: Triggered on Admission Diagnosis: CVA/Hypertension Diagnosis: CVA/Hypertension Pneumonia: Yes Home O2: No Asthma: No CHF: Yes Home CPAP/BIPAP: No Home Nebs/MDI: No Total Points: 6 08/14/21 11:39 PT Eval & Treat (MD Order) ONCE Reason for Eval:: PATIENT INTERESTED IN ROLLATOR ALSO EVAL FOR NEED FOR HHC VS OTPT PT Diagnosis: CVA/Hypertension 08/14/21 12:15 OT Eval and Treat (MD Order) ROUTINE Comment: Consulting Provider: Physician Instructions: Reason For Exam: Diagnosis: CVA/Hypertension 08/14/21 14:01 Speech Therapy Eval & Treat [ST Eval & Treat (MD Order)] .as ordered Comment: Physician Instructions: Reason For Exam: Evaluate: Yes Treat: Yes Reason for Eval: TROUBLE WITH SPEECH, DYSARTHIA, LEFT FACIAL WEAKNESS Diagnosis: CVA/Hypertension Discharge Exam General Appearance: no apparent distress, alert Neurologic Exam: alert, oriented x 3, cooperative, normal mood/affect, nml cerebellar function, sensation nml, No motor deficits Eye Exam: PERRL, EOMI, eyes nml inspection Ears, Nose, Throat Exam: normal ENT inspection, pharynx normal, moist mucous membranes Neck Exam: normal inspection, non-tender, supple, full range of motion Respiratory Exam: normal breath sounds, lungs clear, No respiratory distress Cardiovascular Exam: regular rate/rhythm, normal heart sounds Gastrointestinal/Abdomen Exam: soft, No tenderness, No mass Pelvic Exam: deferred Rectal Exam: deferred Back Exam: normal inspection, normal range of motion, No CVA tenderness, No vertebral tenderness Extremity Exam: normal inspection, normal range of motion Skin Exam: normal color, warm, dry Final Diagnosis/Problem List - Final Discharge Diagnosis/Problem (1) CVA (cerebral vascular accident) Status: Resolved Code(s): I63.9 - CEREBRAL INFARCTION, UNSPECIFIED (2) Hypertension Status: Chronic Code(s): I10 - ESSENTIAL (PRIMARY) HYPERTENSION - Discharge Discharge Date: 08/15/21 Disposition: Home, Self-Care Condition: Stable Prescriptions: No Action Polyethylene Glycol 3350 17 gm [Miralax Powder 17GM PACKET] 17 gm PO DAILY PRN PRN PRN Reason: Constipation Aspirin 81 mg PO DAILY Isosorbide Mononitrate 30 mg [Imdur 30 MG] 30 mg PO DAILY Simvastatin 40 mg [Zocor 40 mg] 40 mg PO DAILY Metoprolol Tartrate 25 mg [Lopressor 25MG Tab] 25 mg PO DAILY Amlodipine Besylate 10 mg [Norvasc 10 MG] 10 mg PO DAILY Verapamil HCl Sr [Isoptin S.r. 240 mg] 240 mg PO DAILY Budesonide/Formoterol Fumarate [Symbicort 80-4.5 Mcg Inhaler] 6.9 gm IH UD Levothyroxine Sodium [Synthroid] 125 mcg PO DAILY Ondansetron ODT 4 MG [Zofran Odt 4 mg] 4 mg PO Q6H PRN PRN #10 tab.rapdis PRN Reason: Vomiting Exenatide Microspheres [Bydureon Bcise] 1 misc SQ WEEKLY Outpatient Orders: Physical Therapy Eval & Treat Facility: [facility], Location: PHYSICAL THERAPY Speech Therapy Eval & Treat Facility: [facility], Location: SPEECH THERAPY Instructions: Transient Ischemic Attack (DC) Additional Instructions: THE THERAPY DEPARTMENT WILL CALL YOU TO SCHEDULE AN APT. TO SEE PHYSICAL THERAPY AND SPEECH THERAPY Follow up with: ANJELICA MORENO MD [Primary Care Provider] - 08/30/21 10:00 am (AT [facility] )
== END 2021-08-15 15:30 | disposition home or self-care (01) ==
LOC: ED 16:01 → MED SURG 21:06
PROVIDERS: ADMIT Family Medicine; ATTEND General Practice
DX: I63.9 Cerebral infarction, unspecified (principal); I10 Essential (primary) hypertension; I25.10 Atherosclerotic heart disease of native coronary artery without angina pectoris; I25.2 Old myocardial infarction; I49.9 Cardiac arrhythmia, unspecified; E11.9 Type 2 diabetes mellitus without complications; Z79.899 Other long term (current) drug therapy; Z20.828 Contact with and (suspected) exposure to other viral communicable diseases
CPT/HCPCS: 0241U; 36415; 70450; 70544; 70551; 71045; 80053; 81015; 83605; 84484; 85025; 85610; 85730; 87086; 93005; 93306; 96360; 97161; 97165; 97530; 99285; 99291; 93268; G0378; A9270-GY

== ENCOUNTER 2021-08-18 16:21 | Observation (INO) | payer MEDICARE, OTHER ==
--- NOTE | 2021-08-18 16:25 | ERPHSYRPT ---
- History of Present Illness Time Seen by Provider: 08/18/21 16:25 Source: patient Exam Limitations: no limitations Physician History: This is a 75-year-old white female patient of Dr. Moreno who was seen and admitted into our hospital on 08/12/2021 and then discharged to home on 08/15/2021. Patient has a history of hypertension, hypothyroidism, [id number]-dejorovpo diabetes, hyperlipidemia, coronary artery disease (coronary artery stent placed) and cardiac arrhythmia. Patient has the complaint of vomiting and bilateral lower extremity weakness causing her to go to the ground. She was able to raise her self up off the ground. Patient did engage in physical therapy today and she did very well per her report. Patient was diagnosed with TIA/acute CVA on 08/12/2021 and had some speech changes which have not changed per her report. She currently has no changes from that day her diagnosis. On 08/14/2021 patient underwent a echocardiogram which showed no domo onal wall motion abnormality. Her cardiac ejection fraction was 60 to 65%. She also underwent an MRA and MRI of the brain which was negative MRA of the [place]. There was also normal aging brain including atrophy and degenerative micro ischemia. There was no evidence of any acute intracranial abnormality or evidence for evolving large vessel territorial stroke. Patient has no shortness of breath. She has no complaints of chest pain. Timing/Duration: today Severity: mild Associated Symptoms: vomiting, weakness, No nausea, No abdominal pain, No shortness of breath, No chest pain, No fever Allergies/Adverse Reactions: No Known Drug Allergies Allergy (Verified 08/18/21 16:40) Home Medications: Amlodipine Besylate 10 mg [Norvasc 10 MG] 10 mg PO DAILY 03/04/16 [History] Aspirin 81 mg PO DAILY 03/04/16 [History] Budesonide/Formoterol Fumarate [Symbicort 80-4.5 Mcg Inhaler] 6.9 gm IH UD 03/04/16 [History] Isosorbide Mononitrate 30 mg [Imdur 30 MG] 30 mg PO DAILY 03/04/16 [History] Levothyroxine Sodium [Synthroid] 125 mcg PO DAILY 03/04/16 [History] Metoprolol Tartrate 25 mg [Lopressor 25MG Tab] 25 mg PO DAILY 03/04/16 [History] Polyethylene Glycol 3350 17 gm [Miralax Powder 17GM PACKET] 17 gm PO DAILY PRN PRN 03/04/16 [History] Simvastatin 40 mg [Zocor 40 mg] 40 mg PO DAILY 03/04/16 [History] Verapamil HCl Sr [Isoptin S.r. 240 mg] 240 mg PO DAILY 03/04/16 [History] Exenatide Microspheres [Bydureon Bcise] 1 misc SQ WEEKLY 08/12/21 [History] Hx Tetanus, Diphtheria Vaccination/Date Given: No Hx Influenza Vaccination/Date Given: Yes Hx Pneumococcal Vaccination/Date Given: Yes Travel Risk - International Travel Have you traveled outside of the country in past 3 weeks: No - Coronavirus Screening Are you exhibiting any of the following symptoms?: No Close contact with a COVID-19 positive Pt in past 14-21 Days: No - Vaccine Status Have you recieved a Covid-19 vaccination: Yes [employer]: [employer] - Vaccination Dates Date of 2cond Vaccination (if applicable): unknown - Review of Systems Constitutional: Weakness Eyes: No Symptoms Ears, Nose, & Throat: No Symptoms Respiratory: No Symptoms Cardiac: No Symptoms Abdominal/Gastrointestinal: No Symptoms, Nausea, Vomiting, No Abdominal Pain, No Diarrhea, No Constipation Genitourinary Symptoms: No Symptoms Musculoskeletal: No Symptoms Skin: No Symptoms Neurological: No Symptoms Psychological: No Symptoms Endocrine: No Symptoms Hematologic/Lymphatic: No Symptoms - Past Medical History Pertinent Past Medical History: Yes Neurological History: No Pertinent History Cardiac History: Arrhythmia, Coronary Artery Disease, Hypertension, Myocardial Infarction ([place]) Respiratory History: Bronchitis Endocrine Medical History: Diabetes Type II, Hypothyroidism Musculoskeletal History: Osteoarthritis, Other Psycho-Social History: No Pertinent History Female Reproductive Disorders: No Pertinent History Other Medical History: PT. HAD STENTS 5-6 YEARS AGO. PT. REPORTS SHE HAS ANGINA OCCASIONALLY. PT. SUSTAINED VERTEBRAL FXS IN 1985. HX L-SPINE OA. - Past Surgical History Past Surgical History: Yes Cardiac: Cardiac Stent Gastrointestinal: Cholecystectomy Musculoskeletal: Orthopedic Surgery Female Surgical History: Hysterectomy - Social History Smoking Status: Former smoker Exposure to second hand smoke: No Drug Use: none Patient Lives Alone: No - Nursing Vital Signs Nursing Vital Signs: Initial Vital Signs Temperature 97 F 08/18/21 16:23 Pulse Rate 58 L 08/18/21 16:23 Respiratory Rate 18 08/18/21 16:23 Blood Pressure 134/64 08/18/21 16:23 O2 Sat by Pulse Oximetry 98 08/18/21 16:23 Pain Scale Pain Intensity 0 - Physical Exam General Appearance: no apparent distress, alert, anxiety Eye Exam: PERRL/EOMI, post op pupil defect (L) Ears, Nose, Throat Exam: normal ENT inspection, dry mucous membranes Neck Exam: normal inspection, non-tender, supple, full range of motion Respiratory Exam: normal breath sounds, lungs clear, airway intact, No chest tenderness, No respiratory distress Cardiovascular Exam: regular rate/rhythm, normal heart sounds, normal peripheral pulses Gastrointestinal/Abdomen Exam: soft, normal bowel sounds, No tenderness Pelvic Exam: not done Rectal Exam: not done Back Exam: normal inspection, normal range of motion, No CVA tenderness, No vertebral tenderness Extremity Exam: normal inspection, normal range of motion, pelvis stable Neurologic Exam: alert, oriented x 3, cooperative, director of informatics II-XII nml as tested, normal mood/affect, sensation nml Skin Exam: normal color, warm, dry Lymphatic Exam: No adenopathy SpO2 Interpretation: normal O2 Delivery: Room Air - Course Nursing assessment & vital signs reviewed: Yes EKG Interpreted by Me: RATE (59), Sinus Rhythm, NORMAL AXIS, NORMAL INTERVALS, NORMAL QRS, NORMAL ST-T, Non-specific ST Changes, Other (No acute ischemic changes on today's EKG) Ordered Tests: Active Orders 24 hr Category Date Time Status EKG-ER Only STAT Care 08/18/21 16:24 Active IV Insertion STAT Care 08/18/21 16:24 Active NPO (ED) STAT Care 08/18/21 16:24 Active Pulse Oximetry (ED) STAT Care 08/18/21 16:24 Active HEAD WITHOUT CONTRAST [CT] Stat Exams 08/18/21 16:24 Taken CBC W DIFF Stat Lab 08/18/21 16:30 Completed CMP Stat Lab 08/18/21 16:30 Completed TROPONIN Q3H Lab 08/18/21 16:45 Completed TROPONIN Q3H Lab 08/18/21 19:45 Ordered TROPONIN Q3H Lab 08/18/21 22:45 Ordered UA W/RFX CULTURE Stat Lab 08/18/21 18:49 Results Transfer Order Routine Transfer 08/18/21 Ordered Medication Summary Discontinued Medications Generic Name Dose Route Start Last Admin Trade Name Freq PRN Reason Stop Dose Admin Sodium Chloride 500 mls @ 500 mls/hr 08/18/21 16:56 08/18/21 18:50 Sodium Chloride 0.9% 500 Ml IV 08/18/21 17:55 Infused .Q1H ONE Infusion Sodium Chloride Confirm 08/18/21 17:36 Sodium Chloride 0.9% 500 Ml Administered 08/18/21 17:37 Dose 500 mls @ ud IV .STK-MED ONE Lab/Rad Data: Laboratory Result Diagrams 08/18/21 16:30 08/18/21 16:30 Laboratory Results 08/18/21 08/18/21 08/18/21 Range/Units 18:49 16:45 16:30 WBC (4.0-10.5) x10^3/uL RBC (4.1-5.4) x10^6/uL Hgb (12.0-16.0) g/dL Hct (35-47) % MCV (78-100) fL MCH (26-32) pg MCHC (32-36) g/dL RDW (11.5-14.0) % Plt Count (150-450) x10^3/uL MPV (7.5-11.0) fL Gran % (36.0-66.0) % Immature Gran % (Auto) (0.00-0.4) % Nucleat RBC Rel Count (0.00-0.1) % Eos # (Auto) (0-0.5) x10^3/uL Immature Gran # (Auto) (0.00-0.03) x10^3u/L Absolute Lymphs (auto) (1.0-4.6) x10^3/uL Absolute Monos (auto) (0.0-1.3) x10^3/uL Absolute Nucleated RBC (0.00-0.01) x10^3u/L Lymphocytes % (24.0-44.0) % Monocytes % (0.0-12.0) % Eosinophils % (0.00-5.0) % Basophils % (0.0-0.4) % Absolute Granulocytes (1.4-6.9) x10^3/uL Basophils # (0-0.4) x10^3/uL Sodium 137 (137-145) mmol/L Potassium 4.3 (3.5-5.1) mmol/L Chloride 100 (98-107) mmol/L Carbon Dioxide 28 (22-30) mmol/L Anion Gap 13.5 (5-15) MEQ/L BUN 32 H (7-17) mg/dL Creatinine 1.51 H (0.52-1.04) mg/dL Estimated GFR 35.5 ML/MIN Glucose 126 H (74-106) mg/dL Calcium 9.4 (8.4-10.2) mg/dL Total Bilirubin 0.70 (0.2-1.3) mg/dL AST 34 (14-36) U/L ALT 44 H (0-35) U/L Alkaline Phosphatase 55 (38-126) U/L Troponin I < 0.012 (0.000-0.034) ng/mL Serum Total Protein 7.1 (6.3-8.2) g/dL Albumin 4.5 (3.5-5.0) g/dL Urinalys Dipstick Clnc MAIN LAB Urine Color YELLOW (YELLOW) Urine Appearance CLEAR (CLEAR) Urine pH 5.0 (5-6) Ur Specific [place] 1.020 (1.005-1.025) POC Urine Protein Conf NEGATIVE (Negative) Urine Ketones NEGATIVE (NEGATIVE) Urine Nitrite NEGATIVE (NEGATIVE) Urine Bilirubin NEGATIVE (NEGATIVE) Urine Urobilinogen 0.2 (0-1) mg/dL Urine Leukocytes NEGATIVE (NEGATIVE) Urine WBC (Auto) Pending Urine RBC (Auto) Pending U Epithel Cells (Auto) Pending Urine Bacteria (Auto) Pending Urine RBC NEGATIVE (0-5) Gabriele/ul Ur Culture Indicated? Pending Urine Glucose NEGATIVE (NEGATIVE) mg/dL 08/18/21 Range/Units 16:30 WBC 8.5 (4.0-10.5) x10^3/uL RBC 3.47 L (4.1-5.4) x10^6/uL Hgb 12.0 (12.0-16.0) g/dL Hct 37.3 (35-47) % MCV 107.5 H (78-100) fL MCH 34.6 H (26-32) pg MCHC 32.2 (32-36) g/dL RDW 13.4 (11.5-14.0) % Plt Count 147 L (150-450) x10^3/uL MPV 11.0 (7.5-11.0) fL Gran % 65.0 (36.0-66.0) % Immature Gran % (Auto) 0.5 H (0.00-0.4) % Nucleat RBC Rel Count 0.0 (0.00-0.1) % Eos # (Auto) 0.09 (0-0.5) x10^3/uL Immature Gran # (Auto) 0.04 H (0.00-0.03) x10^3u/L Absolute Lymphs (auto) 1.81 (1.0-4.6) x10^3/uL Absolute Monos (auto) 1.01 (0.0-1.3) x10^3/uL Absolute Nucleated RBC 0.00 (0.00-0.01) x10^3u/L Lymphocytes % 21.2 L (24.0-44.0) % Monocytes % 11.8 (0.0-12.0) % Eosinophils % 1.1 (0.00-5.0) % Basophils % 0.4 (0.0-0.4) % Absolute Granulocytes 5.56 (1.4-6.9) x10^3/uL Basophils # 0.03 (0-0.4) x10^3/uL Sodium (137-145) mmol/L Potassium (3.5-5.1) mmol/L Chloride (98-107) mmol/L Carbon Dioxide (22-30) mmol/L Anion Gap (5-15) MEQ/L BUN (7-17) mg/dL Creatinine (0.52-1.04) mg/dL Estimated GFR ML/MIN Glucose (74-106) mg/dL Calcium (8.4-10.2) mg/dL Total Bilirubin (0.2-1.3) mg/dL AST (14-36) U/L ALT (0-35) U/L Alkaline Phosphatase (38-126) U/L Troponin I (0.000-0.034) ng/mL Serum Total Protein (6.3-8.2) g/dL Albumin (3.5-5.0) g/dL Urinalys Dipstick Clnc Urine Color (YELLOW) Urine Appearance (CLEAR) Urine pH (5-6) Ur Specific [place] (1.005-1.025) POC Urine Protein Conf (Negative) Urine Ketones (NEGATIVE) Urine Nitrite (NEGATIVE) Urine Bilirubin (NEGATIVE) Urine Urobilinogen (0-1) mg/dL Urine Leukocytes (NEGATIVE) Urine WBC (Auto) Urine RBC (Auto) U Epithel Cells (Auto) Urine Bacteria (Auto) Urine RBC (0-5) Gabriele/ul Ur Culture Indicated? Urine Glucose (NEGATIVE) mg/dL - Progress Progress: improved, re-examined Progress Note: 08/18/21 18:59 CAT scan of the head without contrast shows no acute intracranial abnormality. Medical decision making: This patient is having weakness and fell again today. She does not have a focal neurologic issue today. However, she was recently diagnosed with a TIA/CVA. The patient lives with her who is approximately 78 years old. Because of significant weakness that is present and frequent falls we are going to place the patient in observation and obtain discharge planning consultation as well as provide the patient with low rate IV fluids. She still has not yet urinated for us to obtain a UA. This will be obtained on the medical floor. Discussed with : Amy Counseled pt/family regarding: lab results, diagnosis, rad results - Departure Departure Disposition: Observation Clinical Impression: Weakness, Frequent falls Condition: Fair Critical Care Time: No Referrals: ANJELICA MORENO MD [Primary Care Provider] - Follow up/PCP as directed
[2021-08-18 16:54] LABS: Absolute Neutrophil Ct (ANC) 5.56 x10^3/uL (1.4-6.9); Basophil (Absolute #) 0.03 x10^3/uL (0-0.4); Eosinophil % 1.1 % (0.00-5.0); Eosinophil (Absolute #) 0.09 x10^3/uL (0-0.5); Hematocrit 37.3 % (35-47); Lymphocyte (Absolute #) 1.81 x10^3/uL (1.0-4.6); Lymphocytes % 21.2 % (24.0-44.0); Mean Cell Volume 107.5 fL (78-100); Mean Corpuscular Hemoglobin 34.6 pg (26-32); Mean Corpuscular Hgb Concent. 32.2 g/dL (32-36); Monocyte (Absolute #) 1.01 x10^3/uL (0.0-1.3); Monocytes % 11.8 % (0.0-12.0); Platelet Count 147 x10^3/uL (150-450); Red Blood Count 3.47 x10^6/uL (4.1-5.4); Red Cell Distribution Width 13.4 % (11.5-14.0); White Blood Count 8.5 x10^3/uL (4.0-10.5)
[2021-08-18] MEDS ORDERED: Sodium Chloride 0.9% 500 ML 500 ML IV ONE ×2 (16:56→17:36)
[2021-08-18 16:58] LABS: ALBUMIN 4.5 g/dL (3.5-5.0); ANION GAP 13.5 MEQ/L (5-15); BILIRUBIN,TOTAL 0.7 mg/dL (0.2-1.3); Calcium 9.4 mg/dL (8.4-10.2); Creatinine 1 1.51 mg/dL (0.52-1.04); EST GLOMERULAR FILTRATION RATE 35.5 ML/MIN; Potassium 4.3 mmol/L (3.5-5.1); Total Protein 7.1 g/dL (6.3-8.2)
[2021-08-18 19:02] LABS: Appearance CLEAR (CLEAR); Bilirubin NEGATIVE (NEGATIVE); Dipstick done @ ? MAIN LAB; Glucose NEGATIVE (NEGATIVE); Ketones NEGATIVE (NEGATIVE); Nitrite NEGATIVE (NEGATIVE); Protein,Urine Dip NEGATIVE (Negative); RBC NEGATIVE Ery/ul (0-5); Urobilinogen 0.2 mg/dL (0-1)
[2021-08-18 19:05] LABS: Mucus SLIGHT /HPF (NEGATIVE)
[2021-08-18 19:06] LABS: Bacteria NONE SEEN /HPF (NEGATIVE); Urine Cultured Indicated? NO
[2021-08-18 20:05] LABS: INFLUENZA A NEGATIVE (NEGATIVE); INFLUENZA B NEGATIVE (NEGATIVE); RESPIRATORY SYNCTIAL VIRUS NEGATIVE (Negative); SARS-CoV-2 Xpert Express NEGATIVE (NEGATIVE)
[2021-08-18] MEDS ORDERED: TYLENOL 325 MG PO PRN (20:18)
[2021-08-18] MEDS ORDERED: Sodium Chloride 0.9% 1000 ML 1,000 ML IV SCH (20:18)
[2021-08-18] MEDS ORDERED: Zofran 4 MG/2 ML VIAL IV PRN (20:18)
--- NOTE | 2021-08-18 20:36 | XRAY ---
Indication: Slurred speech, weakness, and vomiting. Status post fall. Negative MRI brain August 14, 2021. Multiple contiguous axial images obtained through the head without contrast. Comparison: August 12, 2021. Again age-appropriate global atrophy and mild/moderate periventricular degenerative micro-ischemia bilaterally. No acute intracranial hemorrhage, abnormal extra-axial fluid collection, or mass effect. Fourth ventricle is midline without hydrocephalus. Bony calvarium intact. Visualized paranasal sinuses and mastoid air cells are clear. Impression: Continued nonacute senile brain.
[2021-08-18] MEDS ORDERED: HUMALOG SQ PRN (22:29)
[2021-08-18] MEDS ORDERED: AMITRIPTYLINE 25 MG TABLET PO ONE (23:00)
[2021-08-18] MEDS ORDERED: LYRICA 75 MG CAP PO ONE (23:00)
[2021-08-19 06:03] LABS: Absolute Neutrophil Ct (ANC) 3.25 x10^3/uL (1.4-6.9); Basophil (Absolute #) 0.03 x10^3/uL (0-0.4); Eosinophil % 0.9 % (0.00-5.0); Eosinophil (Absolute #) 0.05 x10^3/uL (0-0.5); Hematocrit 35.4 % (35-47); Hemoglobin 11.4 g/dL (12.0-16.0); Lymphocyte (Absolute #) 1.71 x10^3/uL (1.0-4.6); Lymphocytes % 30.3 % (24.0-44.0); Mean Cell Volume 107.6 fL (78-100); Mean Corpuscular Hemoglobin 34.7 pg (26-32); Mean Corpuscular Hgb Concent. 32.2 g/dL (32-36); Mean Platelet Volume 10.8 fL (7.5-11.0); Monocyte (Absolute #) 0.58 x10^3/uL (0.0-1.3); Monocytes % 10.3 % (0.0-12.0); Neutrophil % 57.5 % (36.0-66.0); Platelet Count 134 x10^3/uL (150-450); Red Blood Count 3.29 x10^6/uL (4.1-5.4); Red Cell Distribution Width 13.4 % (11.5-14.0); White Blood Count 5.7 x10^3/uL (4.0-10.5)
[2021-08-19 06:39] LABS: ALBUMIN 3.6 g/dL (3.5-5.0); BILIRUBIN,TOTAL 0.4 mg/dL (0.2-1.3); Calcium 8.6 mg/dL (8.4-10.2); Creatinine 1 1.32 mg/dL (0.52-1.04); EST GLOMERULAR FILTRATION RATE 41.5 ML/MIN; Potassium 4.7 mmol/L (3.5-5.1)
--- NOTE | 2021-08-19 07:43 | PCM.HP ---
History of Present Illness - Chief Complaint Chief Complaint: weakness in legs, frequent falls History of Present Illness: is a 75 year old female.who was seen and admitted into our hospital on 08/12/2021 and then discharged to home on 08/15/2021. Patient has a history of hypertension, hypothyroidism, [id number] diabetes, hyperlipidemia, coronary artery disease (coronary artery stent placed) and cardiac arrhythmia. Patient has the complaint of vomiting and bilateral lower extremity weakness causing her to go to the ground. She was able to raise her self up off the ground. Patient did engage in physical therapy today and she did very well per her report. Patient was diagnosed with TIA/acute CVA on 08/12/2021 and had some speech changes which have not changed per her report. She currently has no changes from that day her diagnosis. On 08/14/2021 patient underwent a echocardiogram which showed no regional wall motion abnormality. Her cardiac ejection fraction was 60 to 65%. She also underwent an MRA and MRI of the brain which was negative MRA of the [place]. There was also normal aging brain including atrophy and degenerative micro ischemia. There was no evidence of any acute intracranial abnormality or evidence for evolving large vessel territorial stroke. Patient has no shortness of breath. She has no complaints of chest pain. Timing/Duration: today Severity: mild Associated Symptoms: vomiting, weakness, No nausea, No abdominal pain, No shortness of breath, No chest pain, No fever - Review of Systems Constitutional: Weakness, No Fever, No Chills Eyes: No Symptoms Ears, Nose, & Throat: No Symptoms Respiratory: No Cough, No Short Of Breath Cardiac: No Chest Pain, No Edema, No Syncope Abdominal/Gastrointestinal: No Abdominal Pain, No Nausea, No Vomiting, No Diarrhea Genitourinary Symptoms: No Dysuria Musculoskeletal: Fall, No Back Pain, No Neck Pain Skin: No Rash Neurological: Gait Changes, Speech Changes, No Dizziness, No Focal Weakness, No Sensory Changes Psychological: No Symptoms Endocrine: No Symptoms Hematologic/Lymphatic: No Symptoms Immunological/Allergic: No Symptoms Medications & Allergies Home Medications: Home Medication List Amlodipine Besylate 10 mg [Norvasc 10 MG] 10 mg PO DAILY 03/04/16 [History Confirmed 08/18/21] Aspirin 81 mg PO DAILY 03/04/16 [History Confirmed 08/18/21] Budesonide/Formoterol Fumarate [Symbicort 80-4.5 Mcg Inhaler] 6.9 gm IH UD 03/04/16 [History Confirmed 08/18/21] Isosorbide Mononitrate 30 mg [Imdur 30 MG] 30 mg PO DAILY 03/04/16 [History Confirmed 08/18/21] Levothyroxine Sodium [Synthroid] 125 mcg PO DAILY 03/04/16 [History Confirmed 08/18/21] Metoprolol Tartrate 25 mg [Lopressor 25MG Tab] 25 mg PO DAILY 03/04/16 [History Confirmed 08/18/21] Polyethylene Glycol 3350 17 gm [Miralax Powder 17GM PACKET] 17 gm PO DAILY PRN PRN 03/04/16 [History Confirmed 08/18/21] Simvastatin 40 mg [Zocor 40 mg] 40 mg PO DAILY 03/04/16 [History Confirmed 08/18/21] Verapamil HCl Sr [Isoptin S.r. 240 mg] 240 mg PO DAILY 03/04/16 [History Confirmed 08/18/21] Ondansetron ODT 4 MG [Zofran Odt 4 mg] 4 mg PO Q6H PRN PRN #10 tab.rapdis 05/29/20 [Rx Confirmed 08/18/21] Exenatide Microspheres [Bydureon Bcise] 1 misc SQ WEEKLY 08/12/21 [History Confirmed 08/18/21] Amitriptyline HCl 25 mg [Amitriptyline 25 mg Tablet] 25 mg PO HS 08/18/21 [History Confirmed 08/18/21] Aspirin [Aspirin EC] 81 mg PO DAILY 08/18/21 [History Confirmed 08/18/21] Furosemide [Lasix] 20 mg PO DAILY 08/18/21 [History Confirmed 08/18/21] Pregabalin 150 mg PO BID 08/18/21 [History Confirmed 08/18/21] Rosuvastatin Calcium [Crestor] 20 mg PO DAILY 08/18/21 [History Confirmed 08/18/21] Allergies/Adverse Reactions: Allergies Allergy/AdvReac Type Severity Reaction Status Date / Time No Known Drug Allergies Allergy Verified 08/18/21 16:40 - Past Medical History Past Medical History: Yes Neurological History: No Pertinent History Cardiac History: Arrhythmia, Coronary Artery Disease, Hypertension, Myocardial Infarction ([place]) Respiratory History: Bronchitis Endocrine Medical History: Diabetes Type II, Hypothyroidism Musculoskelatal History: Osteoarthritis, Other Pyscho-Social History: No Pertinent History Reproductive Disorders: No Pertinent History Comment: PT. HAD STENTS 5-6 YEARS AGO. PT. REPORTS SHE HAS ANGINA OCCASIONALLY. PT. SUSTAINED VERTEBRAL FXS IN 1985. HX L-SPINE OA. - Female History Are you now?: No - Past Surgical History Past Surgical History: Yes Cardiac History: Cardiac Stent GI Surgical History: Cholecystectomy Musculskeletal Surgical Hx: Orthopedic Surgery Female Surgical History: Hysterectomy - Social History Smoking Status: Never smoker Exposure to second hand smoke: No Alcohol: None Drug Use: none - Physical Exam Vital Signs: Vital Signs - 24 hr Temp Pulse Resp BP Pulse Ox 08/19/21 04:00 97.7 F 72 16 164/76 93 L 08/19/21 00:00 99.3 F 75 16 116/58 94 L 08/18/21 22:45 71 16 93 L 08/18/21 20:46 99.0 F 69 18 142/77 94 L 08/18/21 20:18 94 L 08/18/21 19:14 63 18 147/67 93 L 08/18/21 18:23 97.6 F 62 20 127/76 92 L 08/18/21 17:43 98.1 F 65 20 134/64 98 08/18/21 16:47 99 08/18/21 16:23 97 F 58 L 18 134/64 98 General Appearance: no apparent distress, alert Neurologic Exam: alert, oriented x 3, cooperative, normal mood/affect, nml cerebellar function, nml station & gait, sensation nml, No motor deficits Eye Exam: PERRL/EOMI, eyes nml inspection Ears, Nose, Throat Exam: normal ENT inspection, TMs normal, pharynx normal, moist mucous membranes Neck Exam: normal inspection, non-tender, supple, full range of motion Respiratory Exam: normal breath sounds, lungs clear, No respiratory distress Cardiovascular Exam: regular rate/rhythm, normal heart sounds, normal peripheral pulses Gastrointestinal/Abdomen Exam: soft, normal bowel sounds, No tenderness, No mass Back Exam: normal inspection, decreased range of motion, No CVA tenderness, No vertebral tenderness, No point tenderness Extremity Exam: normal inspection, normal range of motion, pelvis stable Skin Exam: normal color, warm, dry, No rash Lymphatic Exam: No adenopathy Results - Labs Lab/Micro Results: Lab Results-Last 24 Hours 08/18/21 08/18/21 08/18/21 Range/Units 16:30 16:30 16:45 WBC 8.5 (4.0-10.5) x10^3/uL RBC 3.47 L (4.1-5.4) x10^6/uL Hgb 12.0 (12.0-16.0) g/dL Hct 37.3 (35-47) % MCV 107.5 H (78-100) fL MCH 34.6 H (26-32) pg MCHC 32.2 (32-36) g/dL RDW 13.4 (11.5-14.0) % Plt Count 147 L (150-450) x10^3/uL MPV 11.0 (7.5-11.0) fL Gran % 65.0 (36.0-66.0) % Immature Gran % (Auto) 0.5 H (0.00-0.4) % Nucleat RBC Rel Count 0.0 (0.00-0.1) % Eos # (Auto) 0.09 (0-0.5) x10^3/uL Immature Gran # (Auto) 0.04 H (0.00-0.03) x10^3u/L Absolute Lymphs (auto) 1.81 (1.0-4.6) x10^3/uL Absolute Monos (auto) 1.01 (0.0-1.3) x10^3/uL Absolute Nucleated RBC 0.00 (0.00-0.01) x10^3u/L Lymphocytes % 21.2 L (24.0-44.0) % Monocytes % 11.8 (0.0-12.0) % Eosinophils % 1.1 (0.00-5.0) % Basophils % 0.4 (0.0-0.4) % Absolute Granulocytes 5.56 (1.4-6.9) x10^3/uL Basophils # 0.03 (0-0.4) x10^3/uL Sodium 137 (137-145) mmol/L Potassium 4.3 (3.5-5.1) mmol/L Chloride 100 (98-107) mmol/L Carbon Dioxide 28 (22-30) mmol/L Anion Gap 13.5 (5-15) MEQ/L BUN 32 H (7-17) mg/dL Creatinine 1.51 H (0.52-1.04) mg/dL Estimated GFR 35.5 ML/MIN Glucose 126 H (74-106) mg/dL POC Glucometer (74 to 106) mg/dL Calcium 9.4 (8.4-10.2) mg/dL Total Bilirubin 0.70 (0.2-1.3) mg/dL AST 34 (14-36) U/L ALT 44 H (0-35) U/L Alkaline Phosphatase 55 (38-126) U/L Troponin I < 0.012 (0.000-0.034) ng/mL Serum Total Protein 7.1 (6.3-8.2) g/dL Albumin 4.5 (3.5-5.0) g/dL Urinalys Dipstick Clnc Urine Color (YELLOW) Urine Appearance (CLEAR) Urine pH (5-6) Ur Specific Stone (1.005-1.025) POC Urine Protein Conf (Negative) Urine Ketones (NEGATIVE) Urine Nitrite (NEGATIVE) Urine Bilirubin (NEGATIVE) Urine Urobilinogen (0-1) mg/dL Urine Leukocytes (NEGATIVE) Urine WBC (Auto) (0-5) /HPF Urine RBC (Auto) (0-2) /HPF U Hyaline Cast (Auto) (0-2) /LPF U Epithel Cells (Auto) (FEW) /HPF Urine Bacteria (Auto) (NEGATIVE) /HPF Urine RBC (0-5) Gabriele/ul Urine Mucus (Auto) (NEGATIVE) /HPF Ur Culture Indicated? Urine Glucose (NEGATIVE) mg/dL Influenza Type A Ag (NEGATIVE) Influenza Type B Ag (NEGATIVE) RSV (PCR) (Negative) SARS-CoV-2 (PCR) (NEGATIVE) 08/18/21 08/18/21 08/19/21 Range/Units 18:49 19:06 06:05 WBC 5.7 (4.0-10.5) x10^3/uL RBC 3.29 L (4.1-5.4) x10^6/uL Hgb 11.4 L (12.0-16.0) g/dL Hct 35.4 (35-47) % MCV 107.6 H (78-100) fL MCH 34.7 H (26-32) pg MCHC 32.2 (32-36) g/dL RDW 13.4 (11.5-14.0) % Plt Count 134 L (150-450) x10^3/uL MPV 10.8 (7.5-11.0) fL Gran % 57.5 (36.0-66.0) % Immature Gran % (Auto) 0.5 H (0.00-0.4) % Nucleat RBC Rel Count 0.0 (0.00-0.1) % Eos # (Auto) 0.05 (0-0.5) x10^3/uL Immature Gran # (Auto) 0.03 (0.00-0.03) x10^3u/L Absolute Lymphs (auto) 1.71 (1.0-4.6) x10^3/uL Absolute Monos (auto) 0.58 (0.0-1.3) x10^3/uL Absolute Nucleated RBC 0.00 (0.00-0.01) x10^3u/L Lymphocytes % 30.3 (24.0-44.0) % Monocytes % 10.3 (0.0-12.0) % Eosinophils % 0.9 (0.00-5.0) % Basophils % 0.5 (0.0-0.4) % Absolute Granulocytes 3.25 (1.4-6.9) x10^3/uL Basophils # 0.03 (0-0.4) x10^3/uL Sodium (137-145) mmol/L Potassium (3.5-5.1) mmol/L Chloride (98-107) mmol/L Carbon Dioxide (22-30) mmol/L Anion Gap (5-15) MEQ/L BUN (7-17) mg/dL Creatinine (0.52-1.04) mg/dL Estimated GFR ML/MIN Glucose (74-106) mg/dL POC Glucometer (74 to 106) mg/dL Calcium (8.4-10.2) mg/dL Total Bilirubin (0.2-1.3) mg/dL AST (14-36) U/L ALT (0-35) U/L Alkaline Phosphatase (38-126) U/L Troponin I (0.000-0.034) ng/mL Serum Total Protein (6.3-8.2) g/dL Albumin (3.5-5.0) g/dL Urinalys Dipstick Clnc MAIN LAB Urine Color YELLOW (YELLOW) Urine Appearance CLEAR (CLEAR) Urine pH 5.0 (5-6) Ur Specific Stone 1.020 (1.005-1.025) POC Urine Protein Conf NEGATIVE (Negative) Urine Ketones NEGATIVE (NEGATIVE) Urine Nitrite NEGATIVE (NEGATIVE) Urine Bilirubin NEGATIVE (NEGATIVE) Urine Urobilinogen 0.2 (0-1) mg/dL Urine Leukocytes NEGATIVE (NEGATIVE) Urine WBC (Auto) 3-5 (0-5) /HPF Urine RBC (Auto) NONE (0-2) /HPF U Hyaline Cast (Auto) 3-5 (0-2) /LPF U Epithel Cells (Auto) NONE (FEW) /HPF Urine Bacteria (Auto) NONE SEEN (NEGATIVE) /HPF Urine RBC NEGATIVE (0-5) Gabriele/ul Urine Mucus (Auto) SLIGHT (NEGATIVE) /HPF Ur Culture Indicated? NO Urine Glucose NEGATIVE (NEGATIVE) mg/dL Influenza Type A Ag NEGATIVE (NEGATIVE) Influenza Type B Ag NEGATIVE (NEGATIVE) RSV (PCR) NEGATIVE (Negative) SARS-CoV-2 (PCR) NEGATIVE (NEGATIVE) 08/19/21 08/19/21 Range/Units 06:05 07:02 WBC (4.0-10.5) x10^3/uL RBC (4.1-5.4) x10^6/uL Hgb (12.0-16.0) g/dL Hct (35-47) % MCV (78-100) fL MCH (26-32) pg MCHC (32-36) g/dL RDW (11.5-14.0) % Plt Count (150-450) x10^3/uL MPV (7.5-11.0) fL Gran % (36.0-66.0) % Immature Gran % (Auto) (0.00-0.4) % Nucleat RBC Rel Count (0.00-0.1) % Eos # (Auto) (0-0.5) x10^3/uL Immature Gran # (Auto) (0.00-0.03) x10^3u/L Absolute Lymphs (auto) (1.0-4.6) x10^3/uL Absolute Monos (auto) (0.0-1.3) x10^3/uL Absolute Nucleated RBC (0.00-0.01) x10^3u/L Lymphocytes % (24.0-44.0) % Monocytes % (0.0-12.0) % Eosinophils % (0.00-5.0) % Basophils % (0.0-0.4) % Absolute Granulocytes (1.4-6.9) x10^3/uL Basophils # (0-0.4) x10^3/uL Sodium 137 (137-145) mmol/L Potassium 4.7 (3.5-5.1) mmol/L Chloride 101 (98-107) mmol/L Carbon Dioxide 32 H (22-30) mmol/L Anion Gap 9.0 (5-15) MEQ/L BUN 32 H (7-17) mg/dL Creatinine 1.32 H (0.52-1.04) mg/dL Estimated GFR 41.5 ML/MIN Glucose 102 (74-106) mg/dL POC Glucometer 102 (74 to 106) mg/dL Calcium 8.6 (8.4-10.2) mg/dL Total Bilirubin 0.40 (0.2-1.3) mg/dL AST 31 (14-36) U/L ALT 40 H (0-35) U/L Alkaline Phosphatase 56 (38-126) U/L Troponin I (0.000-0.034) ng/mL Serum Total Protein 6.0 L (6.3-8.2) g/dL Albumin 3.6 (3.5-5.0) g/dL Urinalys Dipstick Clnc Urine Color (YELLOW) Urine Appearance (CLEAR) Urine pH (5-6) Ur Specific Stone (1.005-1.025) POC Urine Protein Conf (Negative) Urine Ketones (NEGATIVE) Urine Nitrite (NEGATIVE) Urine Bilirubin (NEGATIVE) Urine Urobilinogen (0-1) mg/dL Urine Leukocytes (NEGATIVE) Urine WBC (Auto) (0-5) /HPF Urine RBC (Auto) (0-2) /HPF U Hyaline Cast (Auto) (0-2) /LPF U Epithel Cells (Auto) (FEW) /HPF Urine Bacteria (Auto) (NEGATIVE) /HPF Urine RBC (0-5) Gabriele/ul Urine Mucus (Auto) (NEGATIVE) /HPF Ur Culture Indicated? Urine Glucose (NEGATIVE) mg/dL Influenza Type A Ag (NEGATIVE) Influenza Type B Ag (NEGATIVE) RSV (PCR) (Negative) SARS-CoV-2 (PCR) (NEGATIVE) - Radiology Impressions Radiology Exams & Impressions: Radiology Procedures Category Date Time Status HEAD WITHOUT CONTRAST [CT] Stat Exams 08/18/21 16:[address]/HEAD WITHOUT CONTRAST Indication: Slurred speech, weakness, and vomiting. Status post fall. Negative MRI brain August 14, 2021. Multiple contiguous axial images obtained through the head without contrast. Comparison: August 12, 2021. Again age-appropriate global atrophy and mild/moderate periventricular degenerative micro-ischemia bilaterally. No acute intracranial hemorrhage, abnormal extra-axial fluid collection, or mass effect. Fourth ventricle is midline without hydrocephalus. Bony calvarium intact. Visualized paranasal sinuses and mastoid air cells are clear. Impression: Continued nonacute senile brain. 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 Patient is informed about elbow. Patient is advised to walk with walker and continue physical therapy. Chief Complaint Diagnosis TIA, weakness frequent falls Allergies Allergy/AdvReac Type Severity Reaction Status Date / Time No Known Drug Allergies Allergy Verified 08/18/21 16:40 Vital Signs (Last 24 hours) Temp Pulse Resp BP Pulse Ox 08/19/21 04:00 97.7 F 72 16 164/76 93 L 08/19/21 00:00 99.3 F 75 16 116/58 94 L 08/18/21 22:45 71 16 93 L 08/18/21 20:46 99.0 F 69 18 142/77 94 L 08/18/21 20:18 94 L 08/18/21 19:14 63 18 147/67 93 L 08/18/21 18:23 97.6 F 62 20 127/76 92 L 08/18/21 17:43 98.1 F 65 20 134/64 98 08/18/21 16:47 99 08/18/21 16:23 97 F 58 L 18 134/64 98 Home Medications Medication Instructions Recorded Confirmed Last Taken Type Amitriptyline HCl 25 mg 25 mg PO HS 08/18/21 08/18/21 08/17/21 21:00 History [Amitriptyline 25 mg Tablet] Aspirin [Aspirin EC] 81 mg PO DAILY 08/18/21 08/18/21 08/18/21 09:00 History Furosemide [Lasix] 20 mg PO DAILY 08/18/21 08/18/21 08/18/21 09:00 History Pregabalin 150 mg PO BID 08/18/21 08/18/21 08/18/21 09:00 History Rosuvastatin Calcium [Crestor] 20 mg PO DAILY 08/18/21 08/18/21 08/18/21 09:00 History Current Medications Generic Name Dose Route Start Last Admin Trade Name Freq PRN Reason Stop Dose Admin Acetaminophen 650 mg 08/18/21 20:18 Acetaminophen 325 Mg Tablet PO 09/17/21 20:17 Q4H PRN PRN PAIN, FEVER, HEADACHE Amitriptyline HCl 25 mg 08/18/21 23:00 08/18/21 22:39 Amitriptyline Hcl 25 Mg Tablet PO 08/18/21 23:01 25 mg ONCE ONE Administration Sodium Chloride 1,000 mls @ 50 mls/hr 08/18/21 20:18 08/18/21 21:45 Sodium Chloride 0.9% 1000 Ml IV 09/17/21 20:17 50 mls/hr .Q20H DAE Administration Insulin Human Lispro 0 unit 08/18/21 22:29 Insulin Lispro 1 Unit SQ 09/17/21 22:28 UD PRN HYPERGLYCEMIA Ondansetron HCl 4 mg 08/18/21 20:18 Ondansetron Hcl 4 Mg/2 Ml Vial IV 09/17/21 20:17 Q6H PRN PRN NAUSEA/VOMITING Pregabalin 75 mg 08/18/21 23:00 08/18/21 22:39 Pregabalin 75 Mg Capsule PO 08/18/21 23:01 75 mg ONCE ONE Administration Discontinued Medications Generic Name Dose Route Start Last Admin Trade Name Freq PRN Reason Stop Dose Admin Amitriptyline HCl 25 mg 08/19/21 23:00 Amitriptyline Hcl 25 Mg Tablet PO 08/19/21 23:01 ONCE ONE Sodium Chloride 500 mls @ 500 mls/hr 08/18/21 16:56 08/18/21 18:50 Sodium Chloride 0.9% 500 Ml IV 08/18/21 17:55 Infused .Q1H ONE Infusion Sodium Chloride Confirm 08/18/21 17:36 Sodium Chloride 0.9% 500 Ml Administered 08/18/21 17:37 Dose 500 mls @ ud IV .STK-MED ONE Pregabalin 75 mg 08/19/21 23:00 Pregabalin 75 Mg Capsule PO 08/19/21 23:01 ONCE ONE Intake & Output (Last 24 hours) 08/16/21 08/17/21 08/18/21 08/19/21 11:59 11:59 11:59 11:59 Intake Total 1108 Balance 1108 Weight 56.6 kg Laboratory Results (Last 24 hours) 08/19/21 08/19/21 08/19/21 07:02 06:05 06:05 WBC 5.7 RBC 3.29 L Hgb 11.4 L Hct 35.4 MCV 107.6 H MCH 34.7 H MCHC 32.2 RDW 13.4 Plt Count 134 L MPV 10.8 Gran % 57.5 Immature Gran % (Auto) 0.5 H Nucleat RBC Rel Count 0.0 Eos # (Auto) 0.05 Immature Gran # (Auto) 0.03 Absolute Lymphs (auto) 1.71 Absolute Monos (auto) 0.58 Absolute Nucleated RBC 0.00 Lymphocytes % 30.3 Monocytes % 10.3 Eosinophils % 0.9 Basophils % 0.5 Absolute Granulocytes 3.25 Basophils # 0.03 Sodium 137 Potassium 4.7 Chloride 101 Carbon Dioxide 32 H Anion Gap 9.0 BUN 32 H Creatinine 1.32 H Estimated GFR 41.5 Glucose 102 POC Glucometer 102 Calcium 8.6 Total Bilirubin 0.40 AST 31 ALT 40 H Alkaline Phosphatase 56 Troponin I Serum Total Protein 6.0 L Albumin 3.6 Urinalys Dipstick Clnc Urine Color Urine Appearance Urine pH Ur Specific Stone POC Urine Protein Conf Urine Ketones Urine Nitrite Urine Bilirubin Urine Urobilinogen Urine Leukocytes Urine WBC (Auto) Urine RBC (Auto) U Hyaline Cast (Auto) U Epithel Cells (Auto) Urine Bacteria (Auto) Urine RBC Urine Mucus (Auto) Ur Culture Indicated? Urine Glucose Influenza Type A Ag Influenza Type B Ag RSV (PCR) SARS-CoV-2 (PCR) 08/18/21 08/18/21 08/18/21 19:06 18:49 16:45 WBC RBC Hgb Hct MCV MCH MCHC RDW Plt Count MPV Gran % Immature Gran % (Auto) Nucleat RBC Rel Count Eos # (Auto) Immature Gran # (Auto) Absolute Lymphs (auto) Absolute Monos (auto) Absolute Nucleated RBC Lymphocytes % Monocytes % Eosinophils % Basophils % Absolute Granulocytes Basophils # Sodium Potassium Chloride Carbon Dioxide Anion Gap BUN Creatinine Estimated GFR Glucose POC Glucometer Calcium Total Bilirubin AST ALT Alkaline Phosphatase Troponin I < 0.012 Serum Total Protein Albumin Urinalys Dipstick Clnc MAIN LAB Urine Color YELLOW Urine Appearance CLEAR Urine pH 5.0 Ur Specific Stone 1.020 POC Urine Protein Conf NEGATIVE Urine Ketones NEGATIVE Urine Nitrite NEGATIVE Urine Bilirubin NEGATIVE Urine Urobilinogen 0.2 Urine Leukocytes NEGATIVE Urine WBC (Auto) 3-5 Urine RBC (Auto) NONE U Hyaline Cast (Auto) 3-5 U Epithel Cells (Auto) NONE Urine Bacteria (Auto) NONE SEEN Urine RBC NEGATIVE Urine Mucus (Auto) SLIGHT Ur Culture Indicated? NO Urine Glucose NEGATIVE Influenza Type A Ag NEGATIVE Influenza Type B Ag NEGATIVE RSV (PCR) NEGATIVE SARS-CoV-2 (PCR) NEGATIVE 08/18/21 08/18/21 16:30 16:30 WBC 8.5 RBC 3.47 L Hgb 12.0 Hct 37.3 MCV 107.5 H MCH 34.6 H MCHC 32.2 RDW 13.4 Plt Count 147 L MPV 11.0 Gran % 65.0 Immature Gran % (Auto) 0.5 H Nucleat RBC Rel Count 0.0 Eos # (Auto) 0.09 Immature Gran # (Auto) 0.04 H Absolute Lymphs (auto) 1.81 Absolute Monos (auto) 1.01 Absolute Nucleated RBC 0.00 Lymphocytes % 21.2 L Monocytes % 11.8 Eosinophils % 1.1 Basophils % 0.4 Absolute Granulocytes 5.56 Basophils # 0.03 Sodium 137 Potassium 4.3 Chloride 100 Carbon Dioxide 28 Anion Gap 13.5 BUN 32 H Creatinine 1.51 H Estimated GFR 35.5 Glucose 126 H POC Glucometer Calcium 9.4 Total Bilirubin 0.70 AST 34 ALT 44 H Alkaline Phosphatase 55 Troponin I Serum Total Protein 7.1 Albumin 4.5 Urinalys Dipstick Clnc Urine Color Urine Appearance Urine pH Ur Specific Stone POC Urine Protein Conf Urine Ketones Urine Nitrite Urine Bilirubin Urine Urobilinogen Urine Leukocytes Urine WBC (Auto) Urine RBC (Auto) U Hyaline Cast (Auto) U Epithel Cells (Auto) Urine Bacteria (Auto) Urine RBC Urine Mucus (Auto) Ur Culture Indicated? Urine Glucose Influenza Type A Ag Influenza Type B Ag RSV (PCR) SARS-CoV-2 (PCR) Orders (Last 24 hours) Category Date Time Status Bedrest TOLERATED Activity 08/18/21 20:18 Active Code Status Order ROUTINE Care 08/18/21 20:18 Completed EKG-ER Only STAT Care 08/18/21 16:24 Completed Fall Protocol Q1H Care 08/18/21 20:18 Completed IV Insertion STAT Care 08/18/21 16:24 Completed NPO (ED) STAT Care 08/18/21 16:24 Completed POCT Glucose Check ACHS Care 08/18/21 22:[address] in Observation ROUTINE Care 08/18/21 20:18 Completed Pulse Oximetry (ED) STAT Care 08/18/21 16:24 Completed Weight,Daily 0600 Care 08/18/21 20:18 Active Photo Mask Cleaner/Discharge Plan ROUTINE Cons 08/18/21 21:37 Active House Regular Diet Diet 08/18/21 Dinner Active Discharge Planning,Consult Routine Discharge 08/18/21 20:18 Active HEAD WITHOUT CONTRAST [CT] Stat Exams 08/18/21 16:24 Completed CBC W DIFF AM.LAB Lab 08/19/21 06:05 Completed CBC W DIFF Stat Lab 08/18/21 16:30 Completed CMP AM.LAB Lab 08/19/21 06:05 Completed CMP Stat Lab 08/18/21 16:30 Completed COVID/FLU/RSV Panel Stat Lab 08/18/21 19:06 Completed POCT GLUCOSE Stat Lab 08/19/21 07:02 Completed TROPONIN Q3H Lab 08/18/21 16:45 Completed UA W/RFX CULTURE Stat Lab 08/18/21 18:49 Completed Acetaminophen 325 mg [Tylenol 325 mg] Med 08/18/21 20:18 Ordered 650 mg PO Q4H PRN PRN Amitriptyline HCl 25 mg [Amitriptyline 25 mg Tablet] Med 08/18/21 23:00 Once 25 mg PO ONCE ONE Amitriptyline HCl 25 mg [Amitriptyline 25 mg Tablet] Med 08/19/21 23:00 Discontinued 25 mg PO ONCE ONE Insulin Lispro [Humalog] Med 08/18/21 22:29 Ordered See Dose Instructions SQ UD PRN NaCl 0.9% 1000 ml [Sodium Chloride 0.9% 1000 ML] 1,000 Med 08/18/21 20:18 Ordered ml IV 50 mls/hr NaCl 0.9% 500 ml [Sodium Chloride 0.9% 500 ML] 500 ml Med 08/18/21 16:56 Discontinued IV 500 mls/hr NaCl 0.9% 500 ml [Sodium Chloride 0.9% 500 ML] 500 ml Med 08/18/21 17:36 Discontinued IV UD Ondansetron HCl 4 mg/2 ml [Zofran 4 MG/2 ML VIAL] Med 08/18/21 20:18 Ordered 4 mg IV Q6H PRN PRN Pregabalin [Lyrica 75 mg Cap] Med 08/18/21 23:00 Once 75 mg PO ONCE ONE Pregabalin [Lyrica 75 mg Cap] Med 08/19/21 23:00 Discontinued 75 mg PO ONCE ONE OT Screen per Nursing Assess ONCE OT 08/18/21 21:37 Active PT Eval & Treat (MD Order) ONCE PT 08/18/21 20:18 Active PT Screen per Nursing Assess ONCE PT 08/18/21 21:37 Active Pulse Oximetry ROUTINE RT 08/18/21 20:18 Completed Respiratory Therapy Assessment DAILY RT 08/18/21 22:56 Completed (2) Frequent falls Current Visit: Yes Status: Acute Code(s): R29.6 - REPEATED FALLS (3) Weakness Current Visit: Yes Status: Acute Code(s): R53.1 - WEAKNESS
[2021-08-19 11:31] VITALS: BP 152/73; PULSE 81; O2SAT 93
--- NOTE | 2021-08-19 13:38 | PCM.DS ---
Discharge Summary Date of Admission: 08/18/21 20:18 Admitting Physician: ANJELICA MORENO Primary Care Provider: ANJELICA MORENO Allergies Allergies No Known Drug Allergies Allergy (Verified 08/18/21 16:40) Hospital Summary - Hospital Course Hospital Course: Chief Complaint Diagnosis weakness in legs, frequent falls Allergies Allergy/AdvReac Type Severity Reaction Status Date / Time No Known Drug Allergies Allergy Verified 08/18/21 16:40 Vital Signs (Last 24 hours) Temp Pulse Resp BP Pulse Ox 08/19/21 11:30 98.3 F 81 16 152/73 93 L 08/19/21 08:00 98.2 F 87 16 188/86 96 08/19/21 04:00 97.7 F 72 16 164/76 93 L 08/19/21 00:00 99.3 F 75 16 116/58 94 L 08/18/21 22:45 71 16 93 L 08/18/21 20:46 99.0 F 69 18 142/77 94 L 08/18/21 20:18 94 L 08/18/21 19:14 63 18 147/67 93 L 08/18/21 18:23 97.6 F 62 20 127/76 92 L 08/18/21 17:43 98.1 F 65 20 134/64 98 08/18/21 16:47 99 08/18/21 16:23 97 F 58 L 18 134/64 98 Home Medications Medication Instructions Recorded Confirmed Last Taken Type Amitriptyline HCl 25 mg 25 mg PO HS 08/18/21 08/18/21 08/17/21 21:00 History [Amitriptyline 25 mg Tablet] Aspirin [Aspirin EC] 81 mg PO DAILY 08/18/21 08/18/21 08/18/21 09:00 History Furosemide [Lasix] 20 mg PO DAILY 08/18/21 08/18/21 08/18/21 09:00 History Pregabalin 150 mg PO BID 08/18/21 08/18/21 08/18/21 09:00 History Rosuvastatin Calcium [Crestor] 20 mg PO DAILY 08/18/21 08/18/21 08/18/21 09:00 History Current Medications Generic Name Dose Route Start Last Admin Trade Name Freq PRN Reason Stop Dose Admin Acetaminophen 650 mg 08/18/21 20:18 Acetaminophen 325 Mg Tablet PO 09/17/21 20:17 Q4H PRN PRN PAIN, FEVER, HEADACHE Sodium Chloride 1,000 mls @ 50 mls/hr 08/18/21 20:18 08/18/21 21:45 Sodium Chloride 0.9% 1000 Ml IV 09/17/21 20:17 50 mls/hr .Q20H DAE Administration Insulin Human Lispro 0 unit 08/18/21 22:29 Insulin Lispro 1 Unit SQ 09/17/21 22:28 UD PRN HYPERGLYCEMIA Ondansetron HCl 4 mg 08/18/21 20:18 Ondansetron Hcl 4 Mg/2 Ml Vial IV 09/17/21 20:17 Q6H PRN PRN NAUSEA/VOMITING Discontinued Medications Generic Name Dose Route Start Last Admin Trade Name Freq PRN Reason Stop Dose Admin Amitriptyline HCl 25 mg 08/19/21 23:00 Amitriptyline Hcl 25 Mg Tablet PO 08/19/21 23:01 ONCE ONE Amitriptyline HCl 25 mg 08/18/21 23:00 08/18/21 22:39 Amitriptyline Hcl 25 Mg Tablet PO 08/18/21 23:01 25 mg ONCE ONE Administration Sodium Chloride 500 mls @ 500 mls/hr 08/18/21 16:56 08/18/21 18:50 Sodium Chloride 0.9% 500 Ml IV 08/18/21 17:55 Infused .Q1H ONE Infusion Sodium Chloride Confirm 08/18/21 17:36 Sodium Chloride 0.9% 500 Ml Administered 08/18/21 17:37 Dose 500 mls @ ud IV .STK-MED ONE Pregabalin 75 mg 08/19/21 23:00 Pregabalin 75 Mg Capsule PO 08/19/21 23:01 ONCE ONE Pregabalin 75 mg 08/18/21 23:00 08/18/21 22:39 Pregabalin 75 Mg Capsule PO 08/18/21 23:01 75 mg ONCE ONE Administration Intake & Output (Last 24 hours) 08/17/21 08/18/21 08/19/21 08/20/21 11:59 11:59 11:59 11:59 Intake Total 1588 Balance 1588 Weight 56.6 kg Laboratory Results (Last 24 hours) 08/19/21 08/19/21 08/19/21 11:26 07:02 06:05 WBC RBC Hgb Hct MCV MCH MCHC RDW Plt Count MPV Gran % Immature Gran % (Auto) Nucleat RBC Rel Count Eos # (Auto) Immature Gran # (Auto) Absolute Lymphs (auto) Absolute Monos (auto) Absolute Nucleated RBC Lymphocytes % Monocytes % Eosinophils % Basophils % Absolute Granulocytes Basophils # Sodium 137 Potassium 4.7 Chloride 101 Carbon Dioxide 32 H Anion Gap 9.0 BUN 32 H Creatinine 1.32 H Estimated GFR 41.5 Glucose 102 POC Glucometer 113 H 102 Hemoglobin A1c Calcium 8.6 Total Bilirubin 0.40 AST 31 ALT 40 H Alkaline Phosphatase 56 Troponin I Serum Total Protein 6.0 L Albumin 3.6 Urinalys Dipstick Clnc Urine Color Urine Appearance Urine pH Ur Specific [place] POC Urine Protein Conf Urine Ketones Urine Nitrite Urine Bilirubin Urine Urobilinogen Urine Leukocytes Urine WBC (Auto) Urine RBC (Auto) U Hyaline Cast (Auto) U Epithel Cells (Auto) Urine Bacteria (Auto) Urine RBC Urine Mucus (Auto) Ur Culture Indicated? Urine Glucose Influenza Type A Ag Influenza Type B Ag RSV (PCR) SARS-CoV-2 (PCR) 08/19/21 08/19/21 08/18/21 06:05 05:20 19:06 WBC 5.7 RBC 3.29 L Hgb 11.4 L Hct 35.4 MCV 107.6 H MCH 34.7 H MCHC 32.2 RDW 13.4 Plt Count 134 L MPV 10.8 Gran % 57.5 Immature Gran % (Auto) 0.5 H Nucleat RBC Rel Count 0.0 Eos # (Auto) 0.05 Immature Gran # (Auto) 0.03 Absolute Lymphs (auto) 1.71 Absolute Monos (auto) 0.58 Absolute Nucleated RBC 0.00 Lymphocytes % 30.3 Monocytes % 10.3 Eosinophils % 0.9 Basophils % 0.5 Absolute Granulocytes 3.25 Basophils # 0.03 Sodium Potassium Chloride Carbon Dioxide Anion Gap BUN Creatinine Estimated GFR Glucose POC Glucometer Hemoglobin A1c 5.83 Calcium Total Bilirubin AST ALT Alkaline Phosphatase Troponin I Serum Total Protein Albumin Urinalys Dipstick Clnc Urine Color Urine Appearance Urine pH Ur Specific [place] POC Urine Protein Conf Urine Ketones Urine Nitrite Urine Bilirubin Urine Urobilinogen Urine Leukocytes Urine WBC (Auto) Urine RBC (Auto) U Hyaline Cast (Auto) U Epithel Cells (Auto) Urine Bacteria (Auto) Urine RBC Urine Mucus (Auto) Ur Culture Indicated? Urine Glucose Influenza Type A Ag NEGATIVE Influenza Type B Ag NEGATIVE RSV (PCR) NEGATIVE SARS-CoV-2 (PCR) NEGATIVE 08/18/21 08/18/21 08/18/21 18:49 16:45 16:30 WBC RBC Hgb Hct MCV MCH MCHC RDW Plt Count MPV Gran % Immature Gran % (Auto) Nucleat RBC Rel Count Eos # (Auto) Immature Gran # (Auto) Absolute Lymphs (auto) Absolute Monos (auto) Absolute Nucleated RBC Lymphocytes % Monocytes % Eosinophils % Basophils % Absolute Granulocytes Basophils # Sodium 137 Potassium 4.3 Chloride 100 Carbon Dioxide 28 Anion Gap 13.5 BUN 32 H Creatinine 1.51 H Estimated GFR 35.5 Glucose 126 H POC Glucometer Hemoglobin A1c Calcium 9.4 Total Bilirubin 0.70 AST 34 ALT 44 H Alkaline Phosphatase 55 Troponin I < 0.012 Serum Total Protein 7.1 Albumin 4.5 Urinalys Dipstick Clnc MAIN LAB Urine Color YELLOW Urine Appearance CLEAR Urine pH 5.0 Ur Specific [place] 1.020 POC Urine Protein Conf NEGATIVE Urine Ketones NEGATIVE Urine Nitrite NEGATIVE Urine Bilirubin NEGATIVE Urine Urobilinogen 0.2 Urine Leukocytes NEGATIVE Urine WBC (Auto) 3-5 Urine RBC (Auto) NONE U Hyaline Cast (Auto) 3-5 U Epithel Cells (Auto) NONE Urine Bacteria (Auto) NONE SEEN Urine RBC NEGATIVE Urine Mucus (Auto) SLIGHT Ur Culture Indicated? NO Urine Glucose NEGATIVE Influenza Type A Ag Influenza Type B Ag RSV (PCR) SARS-CoV-2 (PCR) 08/18/21 16:30 WBC 8.5 RBC 3.47 L Hgb 12.0 Hct 37.3 MCV 107.5 H MCH 34.6 H MCHC 32.2 RDW 13.4 Plt Count 147 L MPV 11.0 Gran % 65.0 Immature Gran % (Auto) 0.5 H Nucleat RBC Rel Count 0.0 Eos # (Auto) 0.09 Immature Gran # (Auto) 0.04 H Absolute Lymphs (auto) 1.81 Absolute Monos (auto) 1.01 Absolute Nucleated RBC 0.00 Lymphocytes % 21.2 L Monocytes % 11.8 Eosinophils % 1.1 Basophils % 0.4 Absolute Granulocytes 5.56 Basophils # 0.03 Sodium Potassium Chloride Carbon Dioxide Anion Gap BUN Creatinine Estimated GFR Glucose POC Glucometer Hemoglobin A1c Calcium Total Bilirubin AST ALT Alkaline Phosphatase Troponin I Serum Total Protein Albumin Urinalys Dipstick Clnc Urine Color Urine Appearance Urine pH Ur Specific [place] POC Urine Protein Conf Urine Ketones Urine Nitrite Urine Bilirubin Urine Urobilinogen Urine Leukocytes Urine WBC (Auto) Urine RBC (Auto) U Hyaline Cast (Auto) U Epithel Cells (Auto) Urine Bacteria (Auto) Urine RBC Urine Mucus (Auto) Ur Culture Indicated? Urine Glucose Influenza Type A Ag Influenza Type B Ag RSV (PCR) SARS-CoV-2 (PCR) Orders (Last 24 hours) Category Date Time Status Bedrest TOLERATED Activity 08/18/21 20:18 Active Code Status Order ROUTINE Care 08/18/21 20:18 Completed EKG-ER Only STAT Care 08/18/21 16:24 Completed Fall Protocol Q1H Care 08/18/21 20:18 Completed IV Insertion STAT Care 08/18/21 16:24 Completed NPO (ED) STAT Care 08/18/21 16:24 Completed POCT Glucose Check ACHS Care 08/18/21 22:[address] in Observation ROUTINE Care 08/18/21 20:18 Completed Pulse Oximetry (ED) STAT Care 08/18/21 16:24 Completed Weight,Daily 0600 Care 08/18/21 20:18 Active Spray Dyer/Discharge Plan ROUTINE Cons 08/18/21 21:37 Active House Regular Diet Diet 08/18/21 Dinner Active Discharge Planning,Consult Routine Discharge 08/18/21 20:18 Active Discharge Routine Discharge 08/19/21 08:00 Ordered HEAD WITHOUT CONTRAST [CT] Stat Exams 08/18/21 16:24 Completed CBC W DIFF AM.LAB Lab 08/19/21 06:05 Completed CBC W DIFF Stat Lab 08/18/21 16:30 Completed CMP AM.LAB Lab 08/19/21 06:05 Completed CMP Stat Lab 08/18/21 16:30 Completed COVID/FLU/RSV Panel Stat Lab 08/18/21 19:06 Completed HEMOGLOBIN A1C Urgent Lab 08/19/21 05:20 Completed POCT GLUCOSE Stat Lab 08/19/21 07:02 Completed POCT GLUCOSE Stat Lab 08/19/21 11:26 Completed TROPONIN Q3H Lab 08/18/21 16:45 Completed UA W/RFX CULTURE Stat Lab 08/18/21 18:49 Completed Acetaminophen 325 mg [Tylenol 325 mg] Med 08/18/21 20:18 Active 650 mg PO Q4H PRN PRN Amitriptyline HCl 25 mg [Amitriptyline 25 mg Tablet] Med 08/18/21 23:00 Discontinued 25 mg PO ONCE ONE Amitriptyline HCl 25 mg [Amitriptyline 25 mg Tablet] Med 08/19/21 23:00 Discontinued 25 mg PO ONCE ONE Insulin Lispro [Humalog] Med 08/18/21 22:29 Active See Dose Instructions SQ UD PRN NaCl 0.9% 1000 ml [Sodium Chloride 0.9% 1000 ML] 1,000 Med 08/18/21 20:18 Active ml IV 50 mls/hr NaCl 0.9% 500 ml [Sodium Chloride 0.9% 500 ML] 500 ml Med 08/18/21 16:56 Discontinued IV 500 mls/hr NaCl 0.9% 500 ml [Sodium Chloride 0.9% 500 ML] 500 ml Med 08/18/21 17:36 Discontinued IV UD Ondansetron HCl 4 mg/2 ml [Zofran 4 MG/2 ML VIAL] Med 08/18/21 20:18 Active 4 mg IV Q6H PRN PRN Pregabalin [Lyrica 75 mg Cap] Med 08/18/21 23:00 Discontinued 75 mg PO ONCE ONE Pregabalin [Lyrica 75 mg Cap] Med 08/19/21 23:00 Discontinued 75 mg PO ONCE ONE OT Screen per Nursing Assess ONCE OT 08/18/21 21:37 Active PT Eval & Treat (MD Order) ONCE PT 08/18/21 20:18 Active PT Screen per Nursing Assess ONCE PT 08/18/21 21:37 Active Pulse Oximetry ROUTINE RT 08/18/21 20:18 Completed Respiratory Therapy Assessment DAILY RT 08/18/21 22:56 Completed Patient Care Notes (Last 24 hours) 08/19/21 13:09 Nursing Note by Adeline Marmolejo [id number] Ambulate patient and may discharge to home this afternoon. Initialized on 08/19/21 13:09 - END OF NOTE 08/19/21 13:09 [employer] Note by Juliana Ness Walked patient to the bathroom several times she had a steady gate alot better she used a rolling walker .Reported to RN Initialized on 08/19/21 13:09 - END OF NOTE - Vitals & Intake/Output Vital Signs: Vital Signs Temperature 98.3 F 08/19/21 11:30 Pulse Rate 81 08/19/21 11:30 Respiratory Rate 16 08/19/21 11:30 Blood Pressure 152/73 08/19/21 11:30 O2 Sat by Pulse Oximetry 93 L 08/19/21 11:30 Intake & Output: Intake & Output 08/17/21 08/18/21 08/19/21 08/20/21 11:59 11:59 11:59 11:59 Intake Total 1588 Balance 1588 Weight 56.6 kg - Lab Result Diagrams: 08/19/21 06:05 08/19/21 06:05 Lab Results-Last 24 Hrs: Lab Results-Last 24 Hours 08/18/21 08/18/21 08/18/21 Range/Units 16:30 16:30 16:45 WBC 8.5 (4.0-10.5) x10^3/uL RBC 3.47 L (4.1-5.4) x10^6/uL Hgb 12.0 (12.0-16.0) g/dL Hct 37.3 (35-47) % MCV 107.5 H (78-100) fL MCH 34.6 H (26-32) pg MCHC 32.2 (32-36) g/dL RDW 13.4 (11.5-14.0) % Plt Count 147 L (150-450) x10^3/uL MPV 11.0 (7.5-11.0) fL Gran % 65.0 (36.0-66.0) % Immature Gran % (Auto) 0.5 H (0.00-0.4) % Nucleat RBC Rel Count 0.0 (0.00-0.1) % Eos # (Auto) 0.09 (0-0.5) x10^3/uL Immature Gran # (Auto) 0.04 H (0.00-0.03) x10^3u/L Absolute Lymphs (auto) 1.81 (1.0-4.6) x10^3/uL Absolute Monos (auto) 1.01 (0.0-1.3) x10^3/uL Absolute Nucleated RBC 0.00 (0.00-0.01) x10^3u/L Lymphocytes % 21.2 L (24.0-44.0) % Monocytes % 11.8 (0.0-12.0) % Eosinophils % 1.1 (0.00-5.0) % Basophils % 0.4 (0.0-0.4) % Absolute Granulocytes 5.56 (1.4-6.9) x10^3/uL Basophils # 0.03 (0-0.4) x10^3/uL Sodium 137 (137-145) mmol/L Potassium 4.3 (3.5-5.1) mmol/L Chloride 100 (98-107) mmol/L Carbon Dioxide 28 (22-30) mmol/L Anion Gap 13.5 (5-15) MEQ/L BUN 32 H (7-17) mg/dL Creatinine 1.51 H (0.52-1.04) mg/dL Estimated GFR 35.5 ML/MIN Glucose 126 H (74-106) mg/dL POC Glucometer (74 to 106) mg/dL Hemoglobin A1c (4.5-6.0) % Calcium 9.4 (8.4-10.2) mg/dL Total Bilirubin 0.70 (0.2-1.3) mg/dL AST 34 (14-36) U/L ALT 44 H (0-35) U/L Alkaline Phosphatase 55 (38-126) U/L Troponin I < 0.012 (0.000-0.034) ng/mL Serum Total Protein 7.1 (6.3-8.2) g/dL Albumin 4.5 (3.5-5.0) g/dL Urinalys Dipstick Clnc Urine Color (YELLOW) Urine Appearance (CLEAR) Urine pH (5-6) Ur Specific [place] (1.005-1.025) POC Urine Protein Conf (Negative) Urine Ketones (NEGATIVE) Urine Nitrite (NEGATIVE) Urine Bilirubin (NEGATIVE) Urine Urobilinogen (0-1) mg/dL Urine Leukocytes (NEGATIVE) Urine WBC (Auto) (0-5) /HPF Urine RBC (Auto) (0-2) /HPF U Hyaline Cast (Auto) (0-2) /LPF U Epithel Cells (Auto) (FEW) /HPF Urine Bacteria (Auto) (NEGATIVE) /HPF Urine RBC (0-5) Gabriele/ul Urine Mucus (Auto) (NEGATIVE) /HPF Ur Culture Indicated? Urine Glucose (NEGATIVE) mg/dL Influenza Type A Ag (NEGATIVE) Influenza Type B Ag (NEGATIVE) RSV (PCR) (Negative) SARS-CoV-2 (PCR) (NEGATIVE) 08/18/21 08/18/21 08/19/21 Range/Units 18:49 19:06 05:20 WBC (4.0-10.5) x10^3/uL RBC (4.1-5.4) x10^6/uL Hgb (12.0-16.0) g/dL Hct (35-47) % MCV (78-100) fL MCH (26-32) pg MCHC (32-36) g/dL RDW (11.5-14.0) % Plt Count (150-450) x10^3/uL MPV (7.5-11.0) fL Gran % (36.0-66.0) % Immature Gran % (Auto) (0.00-0.4) % Nucleat RBC Rel Count (0.00-0.1) % Eos # (Auto) (0-0.5) x10^3/uL Immature Gran # (Auto) (0.00-0.03) x10^3u/L Absolute Lymphs (auto) (1.0-4.6) x10^3/uL Absolute Monos (auto) (0.0-1.3) x10^3/uL Absolute Nucleated RBC (0.00-0.01) x10^3u/L Lymphocytes % (24.0-44.0) % Monocytes % (0.0-12.0) % Eosinophils % (0.00-5.0) % Basophils % (0.0-0.4) % Absolute Granulocytes (1.4-6.9) x10^3/uL Basophils # (0-0.4) x10^3/uL Sodium (137-145) mmol/L Potassium (3.5-5.1) mmol/L Chloride (98-107) mmol/L Carbon Dioxide (22-30) mmol/L Anion Gap (5-15) MEQ/L BUN (7-17) mg/dL Creatinine (0.52-1.04) mg/dL Estimated GFR ML/MIN Glucose (74-106) mg/dL POC Glucometer (74 to 106) mg/dL Hemoglobin A1c 5.83 (4.5-6.0) % Calcium (8.4-10.2) mg/dL Total Bilirubin (0.2-1.3) mg/dL AST (14-36) U/L ALT (0-35) U/L Alkaline Phosphatase (38-126) U/L Troponin I (0.000-0.034) ng/mL Serum Total Protein (6.3-8.2) g/dL Albumin (3.5-5.0) g/dL Urinalys Dipstick Clnc MAIN LAB Urine Color YELLOW (YELLOW) Urine Appearance CLEAR (CLEAR) Urine pH 5.0 (5-6) Ur Specific [place] 1.020 (1.005-1.025) POC Urine Protein Conf NEGATIVE (Negative) Urine Ketones NEGATIVE (NEGATIVE) Urine Nitrite NEGATIVE (NEGATIVE) Urine Bilirubin NEGATIVE (NEGATIVE) Urine Urobilinogen 0.2 (0-1) mg/dL Urine Leukocytes NEGATIVE (NEGATIVE) Urine WBC (Auto) 3-5 (0-5) /HPF Urine RBC (Auto) NONE (0-2) /HPF U Hyaline Cast (Auto) 3-5 (0-2) /LPF U Epithel Cells (Auto) NONE (FEW) /HPF Urine Bacteria (Auto) NONE SEEN (NEGATIVE) /HPF Urine RBC NEGATIVE (0-5) Gabriele/ul Urine Mucus (Auto) SLIGHT (NEGATIVE) /HPF Ur Culture Indicated? NO Urine Glucose NEGATIVE (NEGATIVE) mg/dL Influenza Type A Ag NEGATIVE (NEGATIVE) Influenza Type B Ag NEGATIVE (NEGATIVE) RSV (PCR) NEGATIVE (Negative) SARS-CoV-2 (PCR) NEGATIVE (NEGATIVE) 08/19/21 08/19/21 08/19/21 Range/Units 06:05 06:05 07:02 WBC 5.7 (4.0-10.5) x10^3/uL RBC 3.29 L (4.1-5.4) x10^6/uL Hgb 11.4 L (12.0-16.0) g/dL Hct 35.4 (35-47) % MCV 107.6 H (78-100) fL MCH 34.7 H (26-32) pg MCHC 32.2 (32-36) g/dL RDW 13.4 (11.5-14.0) % Plt Count 134 L (150-450) x10^3/uL MPV 10.8 (7.5-11.0) fL Gran % 57.5 (36.0-66.0) % Immature Gran % (Auto) 0.5 H (0.00-0.4) % Nucleat RBC Rel Count 0.0 (0.00-0.1) % Eos # (Auto) 0.05 (0-0.5) x10^3/uL Immature Gran # (Auto) 0.03 (0.00-0.03) x10^3u/L Absolute Lymphs (auto) 1.71 (1.0-4.6) x10^3/uL Absolute Monos (auto) 0.58 (0.0-1.3) x10^3/uL Absolute Nucleated RBC 0.00 (0.00-0.01) x10^3u/L Lymphocytes % 30.3 (24.0-44.0) % Monocytes % 10.3 (0.0-12.0) % Eosinophils % 0.9 (0.00-5.0) % Basophils % 0.5 (0.0-0.4) % Absolute Granulocytes 3.25 (1.4-6.9) x10^3/uL Basophils # 0.03 (0-0.4) x10^3/uL Sodium 137 (137-145) mmol/L Potassium 4.7 (3.5-5.1) mmol/L Chloride 101 (98-107) mmol/L Carbon Dioxide 32 H (22-30) mmol/L Anion Gap 9.0 (5-15) MEQ/L BUN 32 H (7-17) mg/dL Creatinine 1.32 H (0.52-1.04) mg/dL Estimated GFR 41.5 ML/MIN Glucose 102 (74-106) mg/dL POC Glucometer 102 (74 to 106) mg/dL Hemoglobin A1c (4.5-6.0) % Calcium 8.6 (8.4-10.2) mg/dL Total Bilirubin 0.40 (0.2-1.3) mg/dL AST 31 (14-36) U/L ALT 40 H (0-35) U/L Alkaline Phosphatase 56 (38-126) U/L Troponin I (0.000-0.034) ng/mL Serum Total Protein 6.0 L (6.3-8.2) g/dL Albumin 3.6 (3.5-5.0) g/dL Urinalys Dipstick Clnc Urine Color (YELLOW) Urine Appearance (CLEAR) Urine pH (5-6) Ur Specific [place] (1.005-1.025) POC Urine Protein Conf (Negative) Urine Ketones (NEGATIVE) Urine Nitrite (NEGATIVE) Urine Bilirubin (NEGATIVE) Urine Urobilinogen (0-1) mg/dL Urine Leukocytes (NEGATIVE) Urine WBC (Auto) (0-5) /HPF Urine RBC (Auto) (0-2) /HPF U Hyaline Cast (Auto) (0-2) /LPF U Epithel Cells (Auto) (FEW) /HPF Urine Bacteria (Auto) (NEGATIVE) /HPF Urine RBC (0-5) Gabriele/ul Urine Mucus (Auto) (NEGATIVE) /HPF Ur Culture Indicated? Urine Glucose (NEGATIVE) mg/dL Influenza Type A Ag (NEGATIVE) Influenza Type B Ag (NEGATIVE) RSV (PCR) (Negative) SARS-CoV-2 (PCR) (NEGATIVE) 08/19/21 Range/Units 11:26 WBC (4.0-10.5) x10^3/uL RBC (4.1-5.4) x10^6/uL Hgb (12.0-16.0) g/dL Hct (35-47) % MCV (78-100) fL MCH (26-32) pg MCHC (32-36) g/dL RDW (11.5-14.0) % Plt Count (150-450) x10^3/uL MPV (7.5-11.0) fL Gran % (36.0-66.0) % Immature Gran % (Auto) (0.00-0.4) % Nucleat RBC Rel Count (0.00-0.1) % Eos # (Auto) (0-0.5) x10^3/uL Immature Gran # (Auto) (0.00-0.03) x10^3u/L Absolute Lymphs (auto) (1.0-4.6) x10^3/uL Absolute Monos (auto) (0.0-1.3) x10^3/uL Absolute Nucleated RBC (0.00-0.01) x10^3u/L Lymphocytes % (24.0-44.0) % Monocytes % (0.0-12.0) % Eosinophils % (0.00-5.0) % Basophils % (0.0-0.4) % Absolute Granulocytes (1.4-6.9) x10^3/uL Basophils # (0-0.4) x10^3/uL Sodium (137-145) mmol/L Potassium (3.5-5.1) mmol/L Chloride (98-107) mmol/L Carbon Dioxide (22-30) mmol/L Anion Gap (5-15) MEQ/L BUN (7-17) mg/dL Creatinine (0.52-1.04) mg/dL Estimated GFR ML/MIN Glucose (74-106) mg/dL POC Glucometer 113 H (74 to 106) mg/dL Hemoglobin A1c (4.5-6.0) % Calcium (8.4-10.2) mg/dL Total Bilirubin (0.2-1.3) mg/dL AST (14-36) U/L ALT (0-35) U/L Alkaline Phosphatase (38-126) U/L Troponin I (0.000-0.034) ng/mL Serum Total Protein (6.3-8.2) g/dL Albumin (3.5-5.0) g/dL Urinalys Dipstick Clnc Urine Color (YELLOW) Urine Appearance (CLEAR) Urine pH (5-6) Ur Specific [place] (1.005-1.025) POC Urine Protein Conf (Negative) Urine Ketones (NEGATIVE) Urine Nitrite (NEGATIVE) Urine Bilirubin (NEGATIVE) Urine Urobilinogen (0-1) mg/dL Urine Leukocytes (NEGATIVE) Urine WBC (Auto) (0-5) /HPF Urine RBC (Auto) (0-2) /HPF U Hyaline Cast (Auto) (0-2) /LPF U Epithel Cells (Auto) (FEW) /HPF Urine Bacteria (Auto) (NEGATIVE) /HPF Urine RBC (0-5) Gabriele/ul Urine Mucus (Auto) (NEGATIVE) /HPF Ur Culture Indicated? Urine Glucose (NEGATIVE) mg/dL Influenza Type A Ag (NEGATIVE) Influenza Type B Ag (NEGATIVE) RSV (PCR) (Negative) SARS-CoV-2 (PCR) (NEGATIVE) Micro Results-Entire Visit: Accuchecks Date 08/19/21 Date 08/19/21 Time 11:29 Time 07:30 - Radiology Exams Ordered Rad Exams-Entire Visit: Radiology Procedures Category Date Time Status HEAD WITHOUT CONTRAST [CT] Stat Exams 08/18/21 16:24 Completed - Procedures and Test Procedures and Tests throughout Hospitalization: Therapy Orders & Screens 08/18/21 20:18 PT Eval & Treat (MD Order) ONCE Reason for Eval:: Weakness and frequent falls. Diagnosis: TIA, weakness frequent falls 08/18/21 21:37 OT Screen per Nursing Assess ONCE Comment: Protocol Order Physician Instructions: Greater than 3 points order OT Admission Screening Reason For Exam: Triggered on Admission Diagnosis: TIA, weakness frequent falls Open Wound/Cellutlitis/Pressure Ulcers: No Acute Fx/ORIF/Change in wt bearing status: No Severe MUSCULOSKELETAL pain: No ADL Dysfunction: Yes Acute CVA w/Hemiparesis/Hemiplegia: No Decreased Functional Mobility/Strength: Yes Sprain/Strain: No Acute Post-op Mobility Dysfunction: No Total Points: 4 PT Screen per Nursing Assess ONCE Comment: Protocol Order Physician Instructions: Greater than 3 points order PT Admission Screenin Reason For Exam: Triggered on Admission Diagnosis: TIA, weakness frequent falls Open Wound/Cellutlitis/Pressure Ulcers: No Acute Fx/ORIF/Change in wt bearing status: No Severe MUSCULOSKELETAL pain: No ADL Dysfunction: Yes Acute CVA w/Hemiparesis/Hemiplegia: No Decreased Functional Mobility/Strength: Yes Sprain/Strain: No Acute Post-op Mobility Dysfunction: No Total Points: 4 08/18/21 22:56 Respiratory Therapy Assessment DAILY Comment: Diagnosis: TIA, weakness frequent falls Discharge Exam General Appearance: no apparent distress, alert Neurologic Exam: alert, oriented x 3, cooperative, normal mood/affect, nml cerebellar function, sensation nml, No motor deficits Eye Exam: PERRL, EOMI, eyes nml inspection Ears, Nose, Throat Exam: normal ENT inspection, pharynx normal, moist mucous membranes Neck Exam: normal inspection, non-tender, supple, full range of motion Respiratory Exam: normal breath sounds, lungs clear, No respiratory distress Cardiovascular Exam: regular rate/rhythm, normal heart sounds Gastrointestinal/Abdomen Exam: soft, No tenderness, No mass Pelvic Exam: deferred Rectal Exam: deferred Back Exam: normal inspection, normal range of motion, No CVA tenderness, No vertebral tenderness Extremity Exam: normal inspection, normal range of motion Skin Exam: normal color, warm, dry Final Diagnosis/Problem List - Final Discharge Diagnosis/Problem (1) Failed back syndrome of lumbar spine Current Visit: Yes Status: Acute (2) Frequent falls Current Visit: Yes Status: Acute Code(s): R29.6 - REPEATED FALLS (3) Weakness Current Visit: Yes Status: Acute Code(s): R53.1 - WEAKNESS - Discharge Discharge Date: 08/19/21 Disposition: Home, Self-Care Condition: Stable Prescriptions: No Action Polyethylene Glycol 3350 17 gm [Miralax Powder 17GM PACKET] 17 gm PO DAILY PRN PRN PRN Reason: Constipation Aspirin 81 mg PO DAILY Isosorbide Mononitrate 30 mg [Imdur 30 MG] 30 mg PO DAILY Simvastatin 40 mg [Zocor 40 mg] 40 mg PO DAILY Metoprolol Tartrate 25 mg [Lopressor 25MG Tab] 25 mg PO DAILY Amlodipine Besylate 10 mg [Norvasc 10 MG] 10 mg PO DAILY Verapamil HCl Sr [Isoptin S.r. 240 mg] 240 mg PO DAILY Budesonide/Formoterol Fumarate [Symbicort 80-4.5 Mcg Inhaler] 6.9 gm IH UD Levothyroxine Sodium [Synthroid] 125 mcg PO DAILY Ondansetron ODT 4 MG [Zofran Odt 4 mg] 4 mg PO Q6H PRN PRN #10 tab.rap dis PRN Reason: Vomiting Exenatide Microspheres [Bydureon Bcise] 1 misc SQ WEEKLY Pregabalin 150 mg PO BID Amitriptyline HCl 25 mg [Amitriptyline 25 mg Tablet] 25 mg PO HS Aspirin [Aspirin EC] 81 mg PO DAILY Furosemide [Lasix] 20 mg PO DAILY Rosuvastatin Calcium [Crestor] 20 mg PO DAILY Follow up with: ANJELICA MORENO MD [Primary Care Provider] - 7 Days Forms: Discharge Instructions
[2021-08-19] MEDS ORDERED: AMITRIPTYLINE 25 MG TABLET PO ONE (23:00)
[2021-08-19] MEDS ORDERED: LYRICA 75 MG CAP PO ONE (23:00)
== END 2021-08-19 13:43 | disposition home or self-care (01) ==
LOC: ED 16:21 → MED SURG 20:18
PROVIDERS: ADMIT General Practice; ATTEND General Practice
DX: M96.1 Postlaminectomy syndrome, not elsewhere classified (principal); R29.6 Repeated falls; R53.1 Weakness; I10 Essential (primary) hypertension; E03.9 Hypothyroidism, unspecified; E11.9 Type 2 diabetes mellitus without complications; E78.5 Hyperlipidemia, unspecified; I25.10 Atherosclerotic heart disease of native coronary artery without angina pectoris; I49.9 Cardiac arrhythmia, unspecified; Z79.899 Other long term (current) drug therapy; Z20.828 Contact with and (suspected) exposure to other viral communicable diseases
CPT/HCPCS: 0241U; 36000; 36415; 70450; 80053; 81015; 82947; 83036; 84484; 85025; 93005; 94760; 99285; G0378; A9270-GY

== ENCOUNTER 2021-09-08 13:39 | Inpatient (IN) | payer MEDICARE, OTHER ==
--- NOTE | 2021-09-08 13:47 | ERPHSYRPT ---
- History of Present Illness Time Seen by Provider: 09/08/21 13:47 Source: patient Exam Limitations: no limitations Physician History: This is a 75-year-old white female patient of Dr. Moreno who has known hypertension and was recently diagnosed with TIA/CVA on 08/12/2021. She had a teleneurology evaluation on that day and also was observed in the hospital for a few days thereafter. On 08/14/2021 patient underwent an echocardiogram which did not show any significant abnormalities and the patient had a cardiac ejection fraction of 60 to 65%. During that hospital stay she also underwent an MRA which was negative for any vascular abnormalities. An MRI of the brain showed normal aging brain with atrophy and degenerative micro ischemic changes. There was no evidence of any acute abnormality. On 09/06/2021 the patient underwent bilateral carotid Doppler. The results showed minimal soft plaque of the bilateral carotid bulbs. It was negative for any hemodynamically significant flow-limiting stenosis. Today, patient was at physical therapy and was dizzy and was seeing spots. She was at the bank and noticed some visual changes and trying to deal with paperwork then. Patient is on verapamil for arrhythmias. She has had a history of coronary artery disease/coronary stents, hypertension, [place], hypothyroidism, chronic angina, elevated cholesterol and type 2 diabetes. Patient denies shortness of breath and she denies chest pain. Timing/Duration: today Severity: mild Associated Symptoms: denies symptoms Allergies/Adverse Reactions: No Known Drug Allergies Allergy (Verified 09/08/21 13:56) Home Medications: Amlodipine Besylate 10 mg [Norvasc 10 MG] 10 mg PO DAILY 03/04/16 [History] Budesonide/Formoterol Fumarate [Symbicort 80-4.5 Mcg Inhaler] 6.9 gm IH UD 03/04/16 [History] Isosorbide Mononitrate 30 mg [Imdur 30 MG] 30 mg PO DAILY 03/04/16 [History] Levothyroxine Sodium [Synthroid] 100 mcg PO DAILY 03/04/16 [History] Metoprolol Tartrate 25 mg [Lopressor 25MG Tab] 25 mg PO DAILY 03/04/16 [History] Polyethylene Glycol 3350 17 gm [Miralax Powder 17GM PACKET] 17 gm PO DAILY PRN PRN 03/04/16 [History] Verapamil HCl Sr [Isoptin S.r. 240 mg] 240 mg PO DAILY 03/04/16 [History] Furosemide [Lasix] 20 mg PO DAILY 08/18/21 [History] Pregabalin 75 mg PO TID 08/18/21 [History] Atorvastatin Calcium 40 mg PO DAILY 09/08/21 [History] Clopidogrel Bisulfate [PLAVIX Tablet] 75 mg PO DAILY 09/08/21 [History] Duloxetine HCl 60 mg PO DAILY 09/08/21 [History] Exenatide Microspheres [Bydureon Bcise] 2 mg SQ WEEKLY 09/08/21 [History] Hydrocodone/Acetaminophen [Hydrocodone-Acetamin 10-325 mg] 1 tablet PO Q6H PRN PRN 09/08/21 [History] Linaclotide [Linzess] 145 mcg PO DAILY 09/08/21 [History] Metformin HCl Xr 500 mg [Glucophage XR 500 MG] 1,000 mg PO DAILY 09/08/21 [History] PANTOPRAZOLE 40 mg Tablet [Protonix 40MG Tablet] 40 mg PO DAILY 09/08/21 [History] Prochlorperazine Maleate 5 mg* [Compazine 5 MG] 5 mg PO TID 09/08/21 [History] Triamterene 50 mg PO DAILY 09/08/21 [History] Hx Tetanus, Diphtheria Vaccination/Date Given: No Hx Influenza Vaccination/Date Given: Yes Hx Pneumococcal Vaccination/Date Given: Yes Travel Risk - Coronavirus Screening Are you exhibiting any of the following symptoms?: No Close contact with a COVID-19 positive Pt in past 14-21 Days: No - Vaccine Status Have you recieved a Covid-19 vaccination: Yes [employer]: Moderna - Vaccination Dates Date of 2cond Vaccination (if applicable): unknown - Review of Systems Constitutional: No Symptoms Eyes: Vision Changes (Patient was seen spots and unable to see the paperwork to sign at the bank.) Ears, Nose, & Throat: No Symptoms Respiratory: No Symptoms Cardiac: No Symptoms Abdominal/Gastrointestinal: No Symptoms Genitourinary Symptoms: No Symptoms Musculoskeletal: No Symptoms Skin: No Symptoms Neurological: Dizziness Psychological: No Symptoms Endocrine: No Symptoms Hematologic/Lymphatic: No Symptoms Immunological/Allergic: No Symptoms All Other Systems: Reviewed and Negative - Past Medical History Pertinent Past Medical History: Yes Neurological History: No Pertinent History Cardiac History: Arrhythmia, Coronary Artery Disease, Hypertension, Myocardial Infarction ([place]) Respiratory History: Bronchitis Endocrine Medical History: Diabetes Type II, Hypothyroidism Musculoskeletal History: Osteoarthritis, Other Psycho-Social History: No Pertinent History Female Reproductive Disorders: No Pertinent History Other Medical History: PT. HAD STENTS 5-6 YEARS AGO. PT. REPORTS SHE HAS ANGINA OCCASIONALLY. PT. SUSTAINED VERTEBRAL FXS IN 1985. HX L-SPINE OA. - Past Surgical History Past Surgical History: Yes Cardiac: Cardiac Stent Gastrointestinal: Cholecystectomy Musculoskeletal: Orthopedic Surgery Female Surgical History: Hysterectomy - Social History Smoking Status: Never smoker Exposure to second hand smoke: No Drug Use: none Patient Lives Alone: No - Nursing Vital Signs Nursing Vital Signs: Initial Vital Signs Temperature 97.4 F 09/08/21 13:44 Pulse Rate 75 09/08/21 13:44 Respiratory Rate 16 09/08/21 13:44 O2 Sat by Pulse Oximetry 99 09/08/21 13:44 Pain Scale Pain Intensity 0 - Physical Exam General Appearance: no apparent distress, alert, anxiety Eye Exam: PERRL/EOMI, eyes nml inspection Ears, Nose, Throat Exam: normal ENT inspection, moist mucous membranes Neck Exam: normal inspection, non-tender, supple, full range of motion Respiratory Exam: normal breath sounds, lungs clear, airway intact, No chest tenderness, No respiratory distress Cardiovascular Exam: regular rate/rhythm, normal heart sounds, normal peripheral pulses Gastrointestinal/Abdomen Exam: soft, normal bowel sounds, No tenderness Pelvic Exam: not done Rectal Exam: not done Back Exam: normal inspection, normal range of motion, No CVA tenderness, No vertebral tenderness Extremity Exam: normal inspection, normal range of motion, pelvis stable Neurologic Exam: alert, oriented x 3, cooperative, director loss prevention II-XII nml as tested, normal mood/affect, nml cerebellar function, nml station & gait, sensation nml Skin Exam: normal color, warm, dry Lymphatic Exam: No adenopathy SpO2 Interpretation: normal O2 Delivery: Room Air - Course Nursing assessment & vital signs reviewed: Yes EKG Interpreted by Me: RATE (60), Sinus Rhythm, NORMAL AXIS, NORMAL INTERVALS, NORMAL QRS, Non-specific ST Changes, Other (Patient has no acute ischemic changes.) Ordered Tests: Active Orders 24 hr Category Date Time Status EKG-ER Only STAT Care 09/08/21 14:12 Active IV Insertion STAT Care 09/08/21 14:12 Active Pulse Oximetry (ED) STAT Care 09/08/21 14:12 Active HEAD WITHOUT CONTRAST [CT] Stat Exams 09/08/21 14:14 Completed CBC W DIFF Stat Lab 09/08/21 13:58 Completed CMP Stat Lab 09/08/21 13:58 Completed MAGNESIUM Stat Lab 09/08/21 13:58 Completed PROTIME WITH INR Stat Lab 09/08/21 13:58 Completed T4 (Thyroxine) Stat Lab 09/08/21 13:58 Completed TROPONIN Q3H Lab 09/08/21 13:58 Completed TROPONIN Q3H Lab 09/08/21 17:15 Ordered TROPONIN Q3H Lab 09/08/21 20:15 Ordered TROPONIN Q3H Lab 09/08/21 23:15 Ordered TROPONIN Q3H Lab 09/09/21 02:15 Ordered TSH [TSH, 3RD Generation] Stat Lab 09/08/21 13:58 Completed UA W/RFX CULTURE Stat Lab 09/08/21 Ordered Transfer Order Routine Transfer 09/08/21 Ordered Medication Summary Discontinued Medications Generic Name Dose Route Start Last Admin Trade Name Bell PRN Reason Stop Dose Admin Labetalol HCl 20 mg 09/08/21 14:12 09/08/21 14:19 Labetalol Hcl 20 Mg/4 Ml Disp.Syringe IV 09/08/21 14:13 20 mg STAT ONE Administration Labetalol HCl Confirm 09/08/21 14:18 Labetalol Hcl 20 Mg/4 Ml Disp.Syringe Administered 09/08/21 14:19 Dose 20 mg IV .STK-MED ONE Lab/Rad Data: Laboratory Result Diagrams 09/08/21 13:58 09/08/21 13:58 Laboratory Results 09/08/21 09/08/21 09/08/21 Range/Units 14:25 13:58 13:58 WBC (4.0-10.5) x10^3/uL RBC (4.1-5.4) x10^6/uL Hgb (12.0-16.0) g/dL Hct (35-47) % MCV (78-100) fL MCH (26-32) pg MCHC (32-36) g/dL RDW (11.5-14.0) % Plt Count (150-450) x10^3/uL MPV (7.5-11.0) fL Gran % (36.0-66.0) % Immature Gran % (Auto) (0.00-0.4) % Nucleat RBC Rel Count (0.00-0.1) % Eos # (Auto) (0-0.5) x10^3/uL Immature Gran # (Auto) (0.00-0.03) x10^3u/L Absolute Lymphs (auto) (1.0-4.6) x10^3/uL Absolute Monos (auto) (0.0-1.3) x10^3/uL Absolute Nucleated RBC (0.00-0.01) x10^3u/L Lymphocytes % (24.0-44.0) % Monocytes % (0.0-12.0) % Eosinophils % (0.00-5.0) % Basophils % (0.0-0.4) % Absolute Granulocytes (1.4-6.9) x10^3/uL Basophils # (0-0.4) x10^3/uL PT (9.4-12.5) SECONDS INR (0.8-3.0) Sodium (137-145) mmol/L Potassium (3.5-5.1) mmol/L Chloride (98-107) mmol/L Carbon Dioxide (22-30) mmol/L Anion Gap (5-15) MEQ/L BUN (7-17) mg/dL Creatinine (0.52-1.04) mg/dL Estimated GFR ML/MIN Glucose (74-106) mg/dL Calcium (8.4-10.2) mg/dL Magnesium (1.6-2.3) mg/dL Total Bilirubin (0.2-1.3) mg/dL AST (14-36) U/L ALT (0-35) U/L Alkaline Phosphatase (38-126) U/L Troponin I < 0.012 (0.000-0.034) ng/mL Serum Total Protein (6.3-8.2) g/dL Albumin (3.5-5.0) g/dL Thyroxine (T4) 2.96 L (5.53-10.96) ug/dL TSH 3rd Generation > 91.200 H (0.47-4.68) mIU/L Influenza Type A Ag NEGATIVE (NEGATIVE) Influenza Type B Ag NEGATIVE (NEGATIVE) RSV (PCR) NEGATIVE (Negative) SARS-CoV-2 (PCR) NEGATIVE (NEGATIVE) 09/08/21 09/08/21 09/08/21 Range/Units 13:58 13:58 13:58 WBC 7.2 (4.0-10.5) x10^3/uL RBC 4.04 L (4.1-5.4) x10^6/uL Hgb 14.3 (12.0-16.0) g/dL Hct 42.3 (35-47) % MCV 104.7 H (78-100) fL MCH 35.4 H (26-32) pg MCHC 33.8 (32-36) g/dL RDW 12.7 (11.5-14.0) % Plt Count 211 (150-450) x10^3/uL MPV 11.0 (7.5-11.0) fL Gran % 68.9 H (36.0-66.0) % Immature Gran % (Auto) 0.6 H (0.00-0.4) % Nucleat RBC Rel Count 0.0 (0.00-0.1) % Eos # (Auto) 0.05 (0-0.5) x10^3/uL Immature Gran # (Auto) 0.04 H (0.00-0.03) x10^3u/L Absolute Lymphs (auto) 1.47 (1.0-4.6) x10^3/uL Absolute Monos (auto) 0.64 (0.0-1.3) x10^3/uL Absolute Nucleated RBC 0.00 (0.00-0.01) x10^3u/L Lymphocytes % 20.3 L (24.0-44.0) % Monocytes % 8.9 (0.0-12.0) % Eosinophils % 0.7 (0.00-5.0) % Basophils % 0.6 (0.0-0.4) % Absolute Granulocytes 4.99 (1.4-6.9) x10^3/uL Basophils # 0.04 (0-0.4) x10^3/uL PT 10.6 (9.4-12.5) SECONDS INR 1.00 (0.8-3.0) Sodium 137 (137-145) mmol/L Potassium 3.7 (3.5-5.1) mmol/L Chloride 103 (98-107) mmol/L Carbon Dioxide 26 (22-30) mmol/L Anion Gap 12.2 (5-15) MEQ/L BUN 19 H (7-17) mg/dL Creatinine 1.12 H (0.52-1.04) mg/dL Estimated GFR 50.1 ML/MIN Glucose 107 H (74-106) mg/dL Calcium 9.4 (8.4-10.2) mg/dL Magnesium 2.1 (1.6-2.3) mg/dL Total Bilirubin 0.50 (0.2-1.3) mg/dL AST 26 (14-36) U/L ALT 21 (0-35) U/L Alkaline Phosphatase 63 (38-126) U/L Troponin I (0.000-0.034) ng/mL Serum Total Protein 6.9 (6.3-8.2) g/dL Albumin 4.3 (3.5-5.0) g/dL Thyroxine (T4) (5.53-10.96) ug/dL TSH 3rd Generation (0.47-4.68) mIU/L Influenza Type A Ag (NEGATIVE) Influenza Type B Ag (NEGATIVE) RSV (PCR) (Negative) SARS-CoV-2 (PCR) (NEGATIVE) - Progress Progress: improved, re-examined Progress Note: 09/08/21 15:17 CT of the head without contrast shows stable, nonacute senile brain again with remote basal ganglia infarct compared to the ER CT scan of the head 3 weeks ago. 09/08/21 16:21 Medical decision making: This patient presented with visual changes and dizziness. Her CT of her head without contrast shows nothing acute. Patient's neurologic exam is nonfocal. Her TSH is very high and her T4 is low. She is hypothyroid. I spoke with Dr. Ham who is covering for her primary care doctor and we will admit this patient into the hospital and monitor her blood pressure as well as her TSH and T4 levels which will be repeated in the morning. We will increase her levothyroxine by 100 mcg. This will give her levothyroxine 200 mcg/day. 09/08/21 16:34 I also spoke with Rolando and pharmacy and he did some research and he stated that intravenous levothyroxine is not any more effective or rapid in its effect than oral levothyroxine. We will therefore follow the recommendations of doubling the patient's oral dose. He stated that will be the new oral dose for the patient until a repeat T3, free T4 and TSH would be drawn at a later time. If the patient only took 100 mcg today I will provide her with another 100 mcg of levothyroxine in the emergency department prior to her being transferred to the medical floor. Discussed with : Alla Counseled pt/family regarding: lab results, diagnosis, rad results - Departure Departure Disposition: In-patient Admission Clinical Impression: Hypothyroidism, Hypertensive urgency Condition: Fair Critical Care Time: Yes Critical Care Time(excluding separately billable procedures): Critical 30-74 mins (35 minutes) Referrals: ANJELICA MORENO MD [Primary Care Provider] - Follow up/PCP as directed
[2021-09-08] MEDS ORDERED: TRANDATE 20 MG/4 ML SYRINGE IV ONE ×2 (14:12→14:18)
[2021-09-08 14:21] LABS: Absolute Neutrophil Ct (ANC) 4.99 x10^3/uL (1.4-6.9); Basophil (Absolute #) 0.04 x10^3/uL (0-0.4); Eosinophil % 0.7 % (0.00-5.0); Eosinophil (Absolute #) 0.05 x10^3/uL (0-0.5); Hematocrit 42.3 % (35-47); Hemoglobin 14.3 g/dL (12.0-16.0); Lymphocyte (Absolute #) 1.47 x10^3/uL (1.0-4.6); Lymphocytes % 20.3 % (24.0-44.0); Mean Cell Volume 104.7 fL (78-100); Mean Corpuscular Hemoglobin 35.4 pg (26-32); Mean Corpuscular Hgb Concent. 33.8 g/dL (32-36); Monocyte (Absolute #) 0.64 x10^3/uL (0.0-1.3); Monocytes % 8.9 % (0.0-12.0); Neutrophil % 68.9 % (36.0-66.0); Platelet Count 211 x10^3/uL (150-450); Red Blood Count 4.04 x10^6/uL (4.1-5.4); Red Cell Distribution Width 12.7 % (11.5-14.0); White Blood Count 7.2 x10^3/uL (4.0-10.5)
[2021-09-08 14:38] LABS: PROTIME 10.6 SECONDS (9.4-12.5)
[2021-09-08 14:40] LABS: ALBUMIN 4.3 g/dL (3.5-5.0); ANION GAP 12.2 MEQ/L (5-15); BILIRUBIN,TOTAL 0.5 mg/dL (0.2-1.3); Calcium 9.4 mg/dL (8.4-10.2); Creatinine 1 1.12 mg/dL (0.52-1.04); EST GLOMERULAR FILTRATION RATE 50.1 ML/MIN; MAGNESIUM 2.1 mg/dL (1.6-2.3); Potassium 3.7 mmol/L (3.5-5.1); Total Protein 6.9 g/dL (6.3-8.2)
--- NOTE | 2021-09-08 14:54 | XRAY ---
Indication: Visual change. Hypertension. TIA. Negative MRI brain August 14, 2021. Multiple contiguous axial images obtained through the head without contrast. Comparison: August 18, 2021. Again age-appropriate global atrophy, mild/moderate periventricular degenerative micro-ischemia, and tiny bilateral basal ganglia remote lacunar infarcts. No acute intracranial hemorrhage, abnormal extra-axial fluid collection, or mass effect. Fourth ventricle is midline without hydrocephalus. Bony calvarium intact. Visualized paranasal sinuses and mastoid air cells are clear. Impression: Stable nonacute senile brain with again remote basal ganglia lacunar infarcts compared to ER CT head 3 weeks ago.
[2021-09-08 15:08] LABS: INFLUENZA A NEGATIVE (NEGATIVE); INFLUENZA B NEGATIVE (NEGATIVE); RESPIRATORY SYNCTIAL VIRUS NEGATIVE (Negative); SARS-CoV-2 Xpert Express NEGATIVE (NEGATIVE)
[2021-09-08 15:10] LABS: T4 (Thyroxine) 2.96 ug/dL (5.53-10.96); TSH, 3RD Generation > 91.200 mIU/L (0.47-4.68)
[2021-09-08] MEDS ORDERED: SYNTHROID 100 MCG PO ONE (16:58)
[2021-09-08] MEDS ORDERED: Zofran 4 MG/2 ML VIAL IV PRN (17:18)
[2021-09-08] MEDS ORDERED: TRANDATE 100MG/20 ML MDV IV PRN (17:18)
[2021-09-08] MEDS ORDERED: TYLENOL 325 MG PO PRN (17:18)
[2021-09-08] MEDS: TRANDATE 20 MG/4 ML SYRINGE IV PRN (17:37)
[2021-09-08 18:11] LABS: Appearance CLEAR (CLEAR); Bilirubin NEGATIVE (NEGATIVE); Glucose NEGATIVE (NEGATIVE); Ketones NEGATIVE (NEGATIVE); Ph 5.5 (5-6); Protein,Urine Dip NEGATIVE (Negative); RBC NEGATIVE Ery/ul (0-5); Specific Gravity 1.015 (1.005-1.025)
[2021-09-08 18:12] LABS: Dipstick done @ ? MAIN LAB; Nitrite NEGATIVE (NEGATIVE); Urobilinogen 0.2 mg/dL (0-1)
[2021-09-08 18:13] LABS: Mucus SLIGHT /HPF (NEGATIVE); Urine Cultured Indicated? NO
[2021-09-08] MEDS ORDERED: Lyrica 25 MG ONE (21:15)
[2021-09-08] MEDS ORDERED: Lyrica 50MG PO SCH (22:00)
[2021-09-09 04:50] LABS: Absolute Neutrophil Ct (ANC) 2.82 x10^3/uL (1.4-6.9); Basophil (Absolute #) 0.03 x10^3/uL (0-0.4); Eosinophil (Absolute #) 0.05 x10^3/uL (0-0.5); Hematocrit 36.6 % (35-47); Hemoglobin 11.8 g/dL (12.0-16.0); Lymphocyte (Absolute #) 1.79 x10^3/uL (1.0-4.6); Lymphocytes % 34.2 % (24.0-44.0); Mean Cell Volume 107.3 fL (78-100); Mean Corpuscular Hemoglobin 34.6 pg (26-32); Mean Corpuscular Hgb Concent. 32.2 g/dL (32-36); Mean Platelet Volume 10.8 fL (7.5-11.0); Monocyte (Absolute #) 0.51 x10^3/uL (0.0-1.3); Monocytes % 9.8 % (0.0-12.0); Neutrophil % 53.8 % (36.0-66.0); Platelet Count 199 x10^3/uL (150-450); Red Blood Count 3.41 x10^6/uL (4.1-5.4); Red Cell Distribution Width 13.1 % (11.5-14.0); White Blood Count 5.2 x10^3/uL (4.0-10.5)
[2021-09-09 05:22] LABS: ALBUMIN 3.5 g/dL (3.5-5.0); ANION GAP 11.7 MEQ/L (5-15); BILIRUBIN,TOTAL 0.4 mg/dL (0.2-1.3); Calcium 8.8 mg/dL (8.4-10.2); Creatinine 1 1.1 mg/dL (0.52-1.04); EST GLOMERULAR FILTRATION RATE 51.2 ML/MIN; Potassium 3.8 mmol/L (3.5-5.1); Total Protein 5.9 g/dL (6.3-8.2)
[2021-09-09] MEDS: SYNTHROID 100 MCG PO SCH (06:56)
[2021-09-09] MEDS: LYRICA 75 MG CAP PO SCH ×3 (11:07→21:26)
[2021-09-09] MEDS: TRANDATE 20 MG/4 ML SYRINGE IV PRN (18:00)
[2021-09-09] MEDS ORDERED: HYDROCODONE-ACETAMIN 10-325 MG PO PRN (19:02)
[2021-09-09] MEDS ORDERED: ZOCOR 20MG PO SCH (22:00)
--- NOTE | 2021-09-09 23:57 | PCM.HP ---
History of Present Illness - Chief Complaint Chief Complaint: hypertensive urgency, hypothyroid History of Present Illness: is a 75 year old female patient of Dr Guillory who presented to ER c/o visual changes -not able to read the words on a form she was trying to fill out ,headache and dizziness. Patient was in Hypertensive urgency and given IV Labetolol. Neuro exam was nonfocal and head CT was unchanged from previous CT done last month.Patient's TSH= 91 and additional Levothyroxine was given in ER. Patient was admited to [facility] 08/12/21 for TIA with Teleneurology visit and workup including MRI and MRA brain-no acute changes,ECHO unremarkable with ejection fraction of 60% and carotid doppler which showed mild carotid plaque. PMHx includes HTN,CAD/stents/[place],Cardiac arrythmia,DM2,Hypothyroid,depression.Patient is admitted to [facility] for observation. - Review of Systems Constitutional: Fatigue Eyes: Vision Changes (see HPI) Ears, Nose, & Throat: No Symptoms Respiratory: No Symptoms Cardiac: No Symptoms Abdominal/Gastrointestinal: No Symptoms Musculoskeletal: No Symptoms Skin: No Symptoms Neurological: Dizziness, Headache Medications & Allergies Home Medications: Home Medication List Amlodipine Besylate 10 mg [Norvasc 10 MG] 10 mg PO DAILY 03/04/16 [History Confirmed 09/08/21] Budesonide/Formoterol Fumarate [Symbicort 80-4.5 Mcg Inhaler] 6.9 gm IH UD 03/04/16 [History Confirmed 09/08/21] Isosorbide Mononitrate 30 mg [Imdur 30 MG] 30 mg PO DAILY 03/04/16 [History Confirmed 09/08/21] Metoprolol Tartrate 25 mg [Lopressor 25MG Tab] 25 mg PO DAILY 03/04/16 [History Confirmed 09/08/21] Polyethylene Glycol 3350 17 gm [Miralax Powder 17GM PACKET] 17 gm PO DAILY PRN PRN 03/04/16 [History Confirmed 09/08/21] Verapamil HCl Sr [Isoptin Sr] 240 mg PO DAILY 03/04/16 [History Confirmed 09/08/21] Furosemide [Lasix] 20 mg PO DAILY 08/18/21 [History Confirmed 09/08/21] Pregabalin 75 mg PO TID 08/18/21 [History Confirmed 09/08/21] Clopidogrel Bisulfate [PLAVIX Tablet] 75 mg PO DAILY 09/08/21 [History Confirmed 09/08/21] Hydrocodone/Acetaminophen [Hydrocodone-Acetamin 10-325 mg] 10 mg PO Q6H PRN 09/08/21 [History Confirmed 09/08/21] Metformin HCl Xr 500 mg [Glucophage XR 500 MG] 1,000 mg PO DAILY 09/08/21 [History Confirmed 09/08/21] PANTOPRAZOLE 40 mg Tablet [Protonix 40MG Tablet] 40 mg PO DAILY 09/08/21 [History Confirmed 09/08/21] Rosuvastatin Calcium 20 mg PO HS 09/08/21 [History Confirmed 09/08/21] Triamterene 50 mg PO DAILY 09/08/21 [History Confirmed 09/08/21] Levothyroxine Sodium 150 Mcg [Synthroid 150 Mcg] 150 mcg PO DAILY #15 table t 09/10/21 [Rx] Allergies/Adverse Reactions: Allergies Allergy/AdvReac Type Severity Reaction Status Date / Time No Known Drug Allergies Allergy Verified 09/08/21 13:56 - Past Medical History Past Medical History: Yes Neurological History: Stroke ENT History: No Pertinent History Cardiac History: Arrhythmia, Coronary Artery Disease, Hypertension, Myocardial Infarction ([place]) Respiratory History: Bronchitis Endocrine Medical History: Diabetes Type II, Hypothyroidism Musculoskelatal History: Osteoarthritis, Other GI Medical History: GERD History: Other Pyscho-Social History: No Pertinent History Reproductive Disorders: No Pertinent History Comment: PT. HAD STENTS 5-6 YEARS AGO. PT. REPORTS SHE HAS ANGINA OCCASIONALLY. PT. SUSTAINED VERTEBRAL FXS IN 1985. HX L-SPINE OA. cyst on one of her kidneys - Female History Are you now?: No - Past Surgical History Past Surgical History: Yes Neuro Surgical History: No Pertinent History Cardiac History: Cardiac Stent Respiratory Surgery: No Pertinent History GI Surgical History: Cholecystectomy Musculskeletal Surgical Hx: Orthopedic Surgery Female Surgical History: Hysterectomy - Social History Smoking Status: Former smoker Exposure to second hand smoke: No Alcohol: None Drug Use: none - Physical Exam Vital Signs: Vital Signs - 24 hr Temp Pulse Resp BP BP BP Pulse Ox 09/09/21 23:31 97.7 F 81 20 154/72 98 07/16/22 21:00 137/83 09/09/21 19:52 97.8 F 80 18 178/80 186/85 97 09/09/21 18:00 186/96 09/09/21 16:00 98.9 F 77 19 194/88 95 09/09/21 12:00 98.9 F 82 19 156/70 97 09/09/21 08:00 98.6 F 66 13 148/79 94 L 09/09/21 04:11 97.5 F 58 L 18 117/58 97 General Appearance: no apparent distress Neurologic Exam: alert, oriented x 3, cooperative (no focal motor or sensory defecits) Eye Exam: eyes nml inspection Ears, Nose, Throat Exam: normal ENT inspection Neck Exam: normal inspection Respiratory Exam: normal breath sounds Cardiovascular Exam: regular rate/rhythm Pelvic Exam: not done Rectal Exam: not done Back Exam: normal inspection Extremity Exam: normal inspection Skin Exam: normal color, warm, dry Results - Labs Lab/Micro Results: Lab Results-Last 24 Hours 09/09/21 09/09/21 09/09/21 Range/Units 04:35 04:35 04:35 WBC 5.2 (4.0-10.5) x10^3/uL RBC 3.41 L (4.1-5.4) x10^6/uL Hgb 11.8 L (12.0-16.0) g/dL Hct 36.6 (35-47) % MCV 107.3 H (78-100) fL MCH 34.6 H (26-32) pg MCHC 32.2 (32-36) g/dL RDW 13.1 (11.5-14.0) % Plt Count 199 (150-450) x10^3/uL MPV 10.8 (7.5-11.0) fL Gran % 53.8 (36.0-66.0) % Immature Gran % (Auto) 0.6 H (0.00-0.4) % Nucleat RBC Rel Count 0.0 (0.00-0.1) % Eos # (Auto) 0.05 (0-0.5) x10^3/uL Immature Gran # (Auto) 0.03 (0.00-0.03) x10^3u/L Absolute Lymphs (auto) 1.79 (1.0-4.6) x10^3/uL Absolute Monos (auto) 0.51 (0.0-1.3) x10^3/uL Absolute Nucleated RBC 0.00 (0.00-0.01) x10^3u/L Lymphocytes % 34.2 (24.0-44.0) % Monocytes % 9.8 (0.0-12.0) % Eosinophils % 1.0 (0.00-5.0) % Basophils % 0.6 (0.0-0.4) % Absolute Granulocytes 2.82 (1.4-6.9) x10^3/uL Basophils # 0.03 (0-0.4) x10^3/uL Sodium 138 (137-145) mmol/L Potassium 3.8 (3.5-5.1) mmol/L Chloride 104 (98-107) mmol/L Carbon Dioxide 26 (22-30) mmol/L Anion Gap 11.7 (5-15) MEQ/L BUN 24 H (7-17) mg/dL Creatinine 1.10 H (0.52-1.04) mg/dL Estimated GFR 51.2 ML/MIN Glucose 99 (74-106) mg/dL Calcium 8.8 (8.4-10.2) mg/dL Total Bilirubin 0.40 (0.2-1.3) mg/dL AST 22 (14-36) U/L ALT 18 (0-35) U/L Alkaline Phosphatase 54 (38-126) U/L NT-Pro-B Natriuret Pep (0-1800) pg/mL Serum Total Protein 5.9 L (6.3-8.2) g/dL Albumin 3.5 (3.5-5.0) g/dL Thyroxine (T4) 3.34 L (5.53-10.96) ug/dL TSH 3rd Generation (0.47-4.68) mIU/L 09/09/21 09/09/21 Range/Units 04:35 09:57 WBC (4.0-10.5) x10^3/uL RBC (4.1-5.4) x10^6/uL Hgb (12.0-16.0) g/dL Hct (35-47) % MCV (78-100) fL MCH (26-32) pg MCHC (32-36) g/dL RDW (11.5-14.0) % Plt Count (150-450) x10^3/uL MPV (7.5-11.0) fL Gran % (36.0-66.0) % Immature Gran % (Auto) (0.00-0.4) % Nucleat RBC Rel Count (0.00-0.1) % Eos # (Auto) (0-0.5) x10^3/uL Immature Gran # (Auto) (0.00-0.03) x10^3u/L Absolute Lymphs (auto) (1.0-4.6) x10^3/uL Absolute Monos (auto) (0.0-1.3) x10^3/uL Absolute Nucleated RBC (0.00-0.01) x10^3u/L Lymphocytes % (24.0-44.0) % Monocytes % (0.0-12.0) % Eosinophils % (0.00-5.0) % Basophils % (0.0-0.4) % Absolute Granulocytes (1.4-6.9) x10^3/uL Basophils # (0-0.4) x10^3/uL Sodium (137-145) mmol/L Potassium (3.5-5.1) mmol/L Chloride (98-107) mmol/L Carbon Dioxide (22-30) mmol/L Anion Gap (5-15) MEQ/L BUN (7-17) mg/dL Creatinine (0.52-1.04) mg/dL Estimated GFR ML/MIN Glucose (74-106) mg/dL Calcium (8.4-10.2) mg/dL Total Bilirubin (0.2-1.3) mg/dL AST (14-36) U/L ALT (0-35) U/L Alkaline Phosphatase (38-126) U/L NT-Pro-B Natriuret Pep 99.5 (0-1800) pg/mL Serum Total Protein (6.3-8.2) g/dL Albumin (3.5-5.0) g/dL Thyroxine (T4) (5.53-10.96) ug/dL TSH 3rd Generation 89.600 H (0.47-4.68) mIU/L - Radiology Impressions Radiology Exams & Impressions: Radiology Procedures Category Date Time Status HEAD WITHOUT CONTRAST [CT] Stat Exams 09/08/21 14:14 Completed Assessment/Plan (1) Hypertensive urgency Status: Resolved Assessment & Plan: IV Lobetolol given in ER,continued present B/P meds and moitored. Code(s): I16.0 - HYPERTENSIVE URGENCY (2) Visual changes Status: Resolved Assessment & Plan: resolved with tx of elevated B/P Code(s): H53.9 - UNSPECIFIED VISUAL DISTURBANCE (3) Hypothyroidism Status: Chronic Code(s): E03.9 - HYPOTHYROIDISM, UNSPECIFIED (4) Low serum triiodothyronine (T3) Status: Acute Assessment & Plan: High T4 and low T3 .Patient is not converting T4 to T3 causing elevated TSH. Will discuss with PCP add T3 instead of increasing T4 Code(s): R79.89 - OTHER SPECIFIED ABNORMAL FINDINGS OF BLOOD CHEMISTRY (5) Dizziness Status: Resolved Code(s): R42 - DIZZINESS AND GIDDINESS (6) Carotid arterial disease Status: Chronic Qualifiers: Laterality: bilateral Assessment & Plan: mild. Code(s): I77.9 - DISORDER OF ARTERIES AND ARTERIOLES, UNSPECIFIED
[2021-09-10 05:18] LABS: Absolute Neutrophil Ct (ANC) 4.18 x10^3/uL (1.4-6.9); Basophil (Absolute #) 0.04 x10^3/uL (0-0.4); Eosinophil % 1.1 % (0.00-5.0); Eosinophil (Absolute #) 0.08 x10^3/uL (0-0.5); Hemoglobin 12.4 g/dL (12.0-16.0); Lymphocyte (Absolute #) 2.27 x10^3/uL (1.0-4.6); Lymphocytes % 31.4 % (24.0-44.0); Mean Cell Volume 105.3 fL (78-100); Mean Corpuscular Hemoglobin 34.3 pg (26-32); Mean Corpuscular Hgb Concent. 32.6 g/dL (32-36); Mean Platelet Volume 11.1 fL (7.5-11.0); Monocyte (Absolute #) 0.64 x10^3/uL (0.0-1.3); Monocytes % 8.8 % (0.0-12.0); Neutrophil % 57.7 % (36.0-66.0); Platelet Count 194 x10^3/uL (150-450); Red Blood Count 3.61 x10^6/uL (4.1-5.4); Red Cell Distribution Width 12.7 % (11.5-14.0); White Blood Count 7.2 x10^3/uL (4.0-10.5)
[2021-09-10 05:30] LABS: ALBUMIN 3.7 g/dL (3.5-5.0); ALKALINE PHOSPHATASE 61 U/L (38-126); ANION GAP 11.1 MEQ/L (5-15); BLOOD UREA NITROGEN 30 mg/dL (7-17); CHLORIDE 102 mmol/L (98-107); Calcium 9.2 mg/dL (8.4-10.2); Carbon Dioxide 27 mmol/L (22-30); Creatinine 1 0.89 mg/dL (0.52-1.04); EST GLOMERULAR FILTRATION RATE > 60.0 ML/MIN; Glucose 110 mg/dL (74-106); Potassium 4.3 mmol/L (3.5-5.1); SGOT/AST 45 U/L (14-36); SGPT/ALT 36 U/L (0-35); SODIUM 136 mmol/L (137-145); Total Protein 6.2 g/dL (6.3-8.2)
[2021-09-10] MEDS: SYNTHROID 100 MCG PO SCH (06:24)
[2021-09-10] MEDS ORDERED: HYDROCODONE-ACETAMIN 10-325 MG PO PRN (07:30)
[2021-09-10] MEDS ORDERED: Miralax Powder 17GM PACKET PO PRN (07:37)
[2021-09-10] MEDS ORDERED: Glucophage XR 500 MG PO SCH (08:00)
[2021-09-10] MEDS ORDERED: MEDICATION INTERVENTION MC SCH ×2 (08:00)
[2021-09-10] MEDS: LYRICA 75 MG CAP PO SCH (08:47)
[2021-09-10 09:07] LABS: Thyroid Pereoxidase (TPO) Ab <8 IU/mL (0-34); Triiodothyronine (T3) 25 ng/dL (71-180)
[2021-09-10] MEDS ORDERED: PLAVIX Tablet PO SCH (10:00)
[2021-09-10] MEDS ORDERED: ISOPTIN SR PO SCH (10:00)
[2021-09-10] MEDS ORDERED: NORVASC 5 MG PO SCH (10:00)
[2021-09-10] MEDS ORDERED: NON-FORMULARY ITEM (Amlodipine Besylate 10 Mg [Norvasc 10 Mg] 10 MG Tablet) PO SCH (10:00)
[2021-09-10] MEDS ORDERED: TRIAMTERENE 50 MG PO SCH (10:00)
[2021-09-10] MEDS ORDERED: Protonix 40MG Tablet PO SCH (10:00)
[2021-09-10] MEDS ORDERED: LASIX 20 MG PO SCH (10:00)
[2021-09-10] MEDS ORDERED: Lopressor 25MG Tab PO SCH (10:00)
[2021-09-10] MEDS ORDERED: Imdur 30 MG PO SCH (10:00)
[2021-09-10 11:43] VITALS: BP 149/65; PULSE 75; O2SAT 97
[2021-09-10] MEDS ORDERED: Zocor 10MG PO SCH (22:00)
[2021-09-11 02:02] LABS: Triiodothyronine (T3), Free 1.1 pg/mL (2.0-4.4)
--- NOTE | 2021-09-11 19:20 | PCM.DCORD ---
- Discharge Disposition: Home, Self-Care Condition: Fair Prescriptions: New Levothyroxine Sodium 150 Mcg [Synthroid 150 Mcg] 150 mcg PO DAILY #15 tablet Continue Polyethylene Glycol 3350 17 gm [Miralax Powder 17GM PACKET] 17 gm PO DAILY PRN PRN PRN Reason: Constipation Isosorbide Mononitrate 30 mg [Imdur 30 MG] 30 mg PO DAILY Metoprolol Tartrate 25 mg [Lopressor 25MG Tab] 25 mg PO DAILY Amlodipine Besylate 10 mg [Norvasc 10 MG] 10 mg PO DAILY Verapamil HCl Sr [Isoptin Sr] 240 mg PO DAILY Budesonide/Formoterol Fumarate [Symbicort 80-4.5 Mcg Inhaler] 6.9 gm IH UD Pregabalin 75 mg PO TID Furosemide [Lasix] 20 mg PO DAILY Clopidogrel Bisulfate [PLAVIX Tablet] 75 mg PO DAILY Metformin HCl Xr 500 mg [Glucophage XR 500 MG] 1,000 mg PO DAILY PANTOPRAZOLE 40 mg Tablet [Protonix 40MG Tablet] 40 mg PO DAILY Triamterene 50 mg PO DAILY Rosuvastatin Calcium 20 mg PO HS Hydrocodone/Acetaminophen [Hydrocodone-Acetamin 10-325 mg] 10 mg PO Q6H PRN PRN Reason: Pain Discontinued Levothyroxine Sodium [Synthroid] 100 mcg PO DAILY Instructions: High Blood Pressure (DC), Hypothyroidism (Underactive Thyroid) (DC) Additional Instructions: ON 09/11/21 START TAKING SYNTHROID 150MCG ONCE DAILY FOR HYPOTHYROIDISM. USE CURRENT SUPPLE OF 100MCG TABLETS, TAKE ONE AND A HALF TABLETS TO EQUAL DOSE OF 150MCG. CHECK BLOOD PRESSURE THREE TIMES A DAY AND WRITE THEM DOWN. TAKE BLOOD PRESSURE LOG WITH YOU TO FOLLOW UP APPOINTMENT WITH DR. MORENO. Follow up with: ANJELICA MORENO MD [Primary Care Provider] - Call for Appointment (CALL MONDAY 09/11 AND SCHEDULE FOLLOW UP APPT WITH DR. MORENO FOR 1-2 WEEKS OUT) Forms: Discharge Instructions
== END 2021-09-10 15:28 | disposition home or self-care (01) | DRG 305 ==
LOC: ED 13:39 → MED SURG 17:13
PROVIDERS: ADMIT Family Medicine; ATTEND Family Medicine
DX: I16.0 Hypertensive urgency (principal); H53.9 Unspecified visual disturbance; E03.9 Hypothyroidism, unspecified; R79.89 Other specified abnormal findings of blood chemistry; R42 Dizziness and giddiness; I77.9 Disorder of arteries and arterioles, unspecified; I10 Essential (primary) hypertension; I25.10 Atherosclerotic heart disease of native coronary artery without angina pectoris; I25.2 Old myocardial infarction; I49.9 Cardiac arrhythmia, unspecified; E11.9 Type 2 diabetes mellitus without complications; Z79.899 Other long term (current) drug therapy; Z20.828 Contact with and (suspected) exposure to other viral communicable diseases
CPT/HCPCS: 0241U; 36000; 36415; 70450; 80053; 81015; 83735; 83880; 84436; 84439; 84443; 84480; 84481; 84484; 85025; 85610; 86376; 93005; 93880; 94760; 96374; 99284; A9270-GY

== ENCOUNTER 2022-04-19 08:30 | Emergency (ER) | payer MEDICARE, OTHER ==
--- NOTE | 2022-04-19 08:33 | ERPHSYRPT ---
- History of Present Illness Time Seen by Provider: 04/19/22 08:32 Historian: patient Exam Limitations: no limitations Physician History: This is a 76-year-old white female who was seen by her primary care provider, Dr. Moreno, yesterday for right upper quadrant epigastric abdominal pain. Patient was told to come to the emergency department her symptoms were not any better this morning. Patient denies chest pain. Patient denies shortness of breath. Patient has had a cholecystectomy and a hysterectomy in the past. Her pain has been present for 5 days. Patient states that the pain is an 8 out of 10. Patient has a history of hypertension, CVA, coronary artery disease/cardiac stents, hypothyroidism, hyperlipidemia, diabetes type 2 and is taking Plavix. Patient has not had this type of pain in the past. Patient has had normal colonoscopies in the past. Timing/Duration: day(s) (5) Activities at Onset: none Quality: sharpness Abdominal Pain Onset Location: RUQ, epigastric Pain Radiation: no radiation Severity of Pain-Max: moderate Severity of Pain-Current: moderate Associated Symptoms: denies symptoms, No chest pain, No nausea, No shortness of breath, No vomiting Previous symptoms: no prior history Allergies/Adverse Reactions: No Known Drug Allergies Allergy (Verified 04/19/22 08:57) Home Medications: Amlodipine Besylate 10 mg [Norvasc 10 MG] 10 mg PO DAILY 03/04/16 [History] Budesonide/Formoterol Fumarate [Symbicort 80-4.5 Mcg Inhaler] 1 puff IH BID 03/04/16 [History] Isosorbide Mononitrate 30 mg [Imdur 30 MG] 30 mg PO DAILY 03/04/16 [History] Metoprolol Tartrate 25 mg [Lopressor 25MG Tab] 25 mg PO DAILY 03/04/16 [History] Polyethylene Glycol 3350 17 gm [Miralax Powder 17GM PACKET] 17 gm PO DAILY PRN PRN 03/04/16 [History] Verapamil HCl Sr [Isoptin Sr] 240 mg PO DAILY 03/04/16 [History] Furosemide [Lasix] 20 mg PO DAILY 08/18/21 [History] Pregabalin 75 mg PO TID 08/18/21 [History] Clopidogrel Bisulfate [PLAVIX Tablet] 75 mg PO DAILY 09/08/21 [History] Hydrocodone/Acetaminophen [Hydrocodone-Acetamin 10-325 mg] 10 mg PO Q6H PRN 09/08/21 [History] Metformin HCl Xr 500 mg [Glucophage XR 500 MG] 1,000 mg PO DAILY 09/08/21 [History] PANTOPRAZOLE 40 mg Tablet [Protonix 40MG Tablet] 40 mg PO DAILY 09/08/21 [History] Triamterene 50 mg PO DAILY 09/08/21 [History] Atorvastatin Calcium [Lipitor 40Mg] 40 mg PO DAILY 04/19/22 [History] Duloxetine HCl [Cymbalta] 60 mg PO DAILY 04/19/22 [History] Exenatide Microspheres [Bydureon Bcise] 2 mg SQ WEEKLY 04/19/22 [History] Prochlorperazine Maleate 5 mg* [Compazine 5 MG] 5 mg PO TID 04/19/22 [History] Hx Tetanus, Diphtheria Vaccination/Date Given: No Hx Influenza Vaccination/Date Given: Yes Hx Pneumococcal Vaccination/Date Given: Yes Travel Risk - International Travel Have you traveled outside of the country in past 3 weeks: No - Coronavirus Screening Are you exhibiting any of the following symptoms?: No Close contact with a COVID-19 positive Pt in past 14-21 Days: No - Vaccine Status Have you recieved a Covid-19 vaccination: Yes 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: Moderna - Vaccination Dates Date of 2cond Vaccination (if applicable): 06/2020 - Review of Systems Constitutional: No Symptoms Eyes: No Symptoms Ears, Nose, & Throat: No Symptoms Respiratory: No Symptoms Cardiac: No Symptoms Abdominal/Gastrointestinal: Abdominal Pain (Quadrant epigastric pain) Genitourinary Symptoms: No Symptoms Musculoskeletal: No Symptoms Skin: No Symptoms Neurological: No Symptoms Psychological: No Symptoms Endocrine: No Symptoms Hematologic/Lymphatic: No Symptoms Immunological/Allergic: No Symptoms All Other Systems: Reviewed and Negative - Past Medical History Pertinent Past Medical History: Yes Neurological History: Stroke ENT History: No Pertinent History Cardiac History: Arrhythmia, Coronary Artery Disease, Hypertension, Myocardial Infarction (NM) Respiratory History: Bronchitis Endocrine Medical History: Diabetes Type II, Hypothyroidism Musculoskeletal History: Osteoarthritis, Other GI Medical History: GERD History: Other Psycho-Social History: No Pertinent History Female Reproductive Disorders: No Pertinent History Other Medical History: PT. HAD STENTS 5-6 YEARS AGO. PT. REPORTS SHE HAS ANGINA OCCASIONALLY. PT. SUSTAINED VERTEBRAL FXS IN 1985. HX L-SPINE OA. cyst on one of her kidneys - Past Surgical History Past Surgical History: Yes Neuro Surgical History: No Pertinent History Cardiac: Cardiac Stent Respiratory: No Pertinent History Gastrointestinal: Cholecystectomy Musculoskeletal: Orthopedic Surgery Female Surgical History: Hysterectomy - Social History Smoking Status: Former smoker Exposure to second hand smoke: No Drug Use: none Patient Lives Alone: No - Nursing Vital Signs Nursing Vital Signs: Initial Vital Signs Temperature 96.9 F 04/19/22 08:41 Pulse Rate 96 H 04/19/22 08:41 Blood Pressure 159/92 04/19/22 08:41 O2 Sat by Pulse Oximetry 96 04/19/22 08:41 Pain Scale Pain Intensity 4 - Physical Exam General Appearance: no apparent distress, alert, anxiety Eye Exam: PERRL/EOMI, eyes nml inspection Ears, Nose, Throat Exam: normal ENT inspection, moist mucous membranes Neck Exam: normal inspection, non-tender, supple, full range of motion Respiratory Exam: normal breath sounds, lungs clear, airway intact, No chest tenderness, No respiratory distress Gastrointestinal/Abdomen Exam: soft, normal bowel sounds, tenderness (To palpation right upper quadrant epigastric region), guarding (To palpation right upper quadrant and epigastric region) Pelvic Exam: not done Rectal Exam: not done Back Exam: normal inspection, normal range of motion, No CVA tenderness, No vertebral tenderness Extremity Exam: normal inspection, normal range of motion, pelvis stable Neurologic Exam: alert, oriented x 3, cooperative, heel brusher II-XII nml as tested, normal mood/affect, nml cerebellar function, nml station & gait, sensation nml Skin Exam: normal color, warm, dry Lymphatic Exam: No adenopathy SpO2 Interpretation: normal O2 Delivery: Room Air - Course Nursing assessment & vital signs reviewed: Yes Ordered Tests: Active Orders 24 hr Category Date Time Status IV Insertion STAT Care 04/19/22 09:09 Active ABDOMEN AND PELVIS W/0 CONTRAS [CT] Stat Exams 04/19/22 09:09 Completed AMYLASE Stat Lab 04/19/22 09:37 Completed CBC W DIFF Stat Lab 04/19/22 09:37 Completed CMP Stat Lab 04/19/22 09:37 Completed CULTURE,URINE Stat Lab 04/19/22 11:19 Received LIPASE Stat Lab 04/19/22 09:37 Completed TROPONIN Q4H Lab 04/19/22 09:37 Completed TROPONIN Q4H Lab 04/19/22 13:15 Ordered TROPONIN Q4H Lab 04/19/22 17:15 Ordered TROPONIN Q4H Lab 04/19/22 21:15 Ordered UA W/RFX UR CULTURE Stat Lab 04/19/22 11:19 Completed Lab/Rad Data: Laboratory Result Diagrams 04/19/22 09:37 04/19/22 09:37 Laboratory Results 04/19/22 04/19/22 04/19/22 Range/Units 11:19 09:37 09:37 WBC (4.0-10.5) x10^3/uL RBC (4.1-5.4) x10^6/uL Hgb (12.0-16.0) g/dL Hct (35-47) % MCV (78-100) fL MCH (26-32) pg MCHC (32-36) g/dL RDW (11.5-14.0) % Plt Count (150-450) x10^3/uL MPV (7.5-11.0) fL Gran % (36.0-66.0) % Immature Gran % (Auto) (0.00-0.4) % Nucleat RBC Rel Count (0.00-0.1) % Eos # (Auto) (0-0.5) x10^3/uL Immature Gran # (Auto) (0.00-0.03) x10^3u/L Absolute Lymphs (auto) (1.0-4.6) x10^3/uL Absolute Monos (auto) (0.0-1.3) x10^3/uL Absolute Nucleated RBC (0.00-0.01) x10^3u/L Lymphocytes % (24.0-44.0) % Monocytes % (0.0-12.0) % Eosinophils % (0.00-5.0) % Basophils % (0.0-0.4) % Absolute Granulocytes (1.4-6.9) x10^3/uL Basophils # (0-0.4) x10^3/uL Sodium 141 (137-145) mmol/L Potassium 4.4 (3.5-5.1) mmol/L Chloride 102 (98-107) mmol/L Carbon Dioxide 31 H (22-30) mmol/L Anion Gap 13.1 (5-15) MEQ/L BUN 30 H (7-17) mg/dL Creatinine 1.20 H (0.52-1.04) mg/dL Estimated GFR 46.2 ML/MIN Glucose 122 H (74-106) mg/dL Calcium 9.4 (8.4-10.2) mg/dL Total Bilirubin 0.80 (0.2-1.3) mg/dL AST 24 (14-36) U/L ALT 20 (0-35) U/L Alkaline Phosphatase 91 (38-126) U/L Troponin I < 0.012 (0.000-0.034) ng/mL Serum Total Protein 7.4 (6.3-8.2) g/dL Albumin 4.4 (3.5-5.0) g/dL Amylase 53 (30-110) U/L Lipase 35 (23-300) U/L Urine Color Yellow (Yellow) Urine Appearance Clear (Clear) Urine pH 5.0 (4.6-8.0) Ur Specific [place] >=1.030 A (1.005-1.030) Urine Protein Negative (Negative) Urine Glucose (UA) Negative (Negative) mg/dL Urine Ketones Negative (Negative) Urine Blood Negative (Negative) Urine Nitrite Positive A (Negative) Urine Bilirubin Negative (Negative) Urine Urobilinogen 0.2 (0.2) mg/dL Ur Leukocyte Esterase Small A (Negative) U Hyaline Cast (Auto) 3-5 A (0-2) /LPF Urine Microscopic RBC 0-2 (0-5) /HPF Urine Microscopic WBC 11-20 A (0-5) /HPF Ur Epithelial Cells None Seen (None Seen) /HPF Urine Bacteria Moderate A (None Seen) /HPF Urine Culture Reflexed YES (NO) 04/19/22 Range/Units 09:37 WBC 8.4 (4.0-10.5) x10^3/uL RBC 4.83 (4.1-5.4) x10^6/uL Hgb 15.3 (12.0-16.0) g/dL Hct 47.3 H (35-47) % MCV 97.9 (78-100) fL MCH 31.7 (26-32) pg MCHC 32.3 (32-36) g/dL RDW 14.6 H (11.5-14.0) % Plt Count 143 L (150-450) x10^3/uL MPV 11.1 H (7.5-11.0) fL Gran % 68.4 H (36.0-66.0) % Immature Gran % (Auto) 0.2 (0.00-0.4) % Nucleat RBC Rel Count 0.0 (0.00-0.1) % Eos # (Auto) 0.05 (0-0.5) x10^3/uL Immature Gran # (Auto) 0.02 (0.00-0.03) x10^3u/L Absolute Lymphs (auto) 1.75 (1.0-4.6) x10^3/uL Absolute Monos (auto) 0.80 (0.0-1.3) x10^3/uL Absolute Nucleated RBC 0.00 (0.00-0.01) x10^3u/L Lymphocytes % 20.9 L (24.0-44.0) % Monocytes % 9.5 (0.0-12.0) % Eosinophils % 0.6 (0.00-5.0) % Basophils % 0.4 (0.0-0.4) % Absolute Granulocytes 5.73 (1.4-6.9) x10^3/uL Basophils # 0.03 (0-0.4) x10^3/uL Sodium (137-145) mmol/L Potassium (3.5-5.1) mmol/L Chloride (98-107) mmol/L Carbon Dioxide (22-30) mmol/L Anion Gap (5-15) MEQ/L BUN (7-17) mg/dL Creatinine (0.52-1.04) mg/dL Estimated GFR ML/MIN Glucose (74-106) mg/dL Calcium (8.4-10.2) mg/dL Total Bilirubin (0.2-1.3) mg/dL AST (14-36) U/L ALT (0-35) U/L Alkaline Phosphatase (38-126) U/L Troponin I (0.000-0.034) ng/mL Serum Total Protein (6.3-8.2) g/dL Albumin (3.5-5.0) g/dL Amylase (30-110) U/L Lipase (23-300) U/L Urine Color (Yellow) Urine Appearance (Clear) Urine pH (4.6-8.0) Ur Specific [place] (1.005-1.030) Urine Protein (Negative) Urine Glucose (UA) (Negative) mg/dL Urine Ketones (Negative) Urine Blood (Negative) Urine Nitrite (Negative) Urine Bilirubin (Negative) Urine Urobilinogen (0.2) mg/dL Ur Leukocyte Esterase (Negative) U Hyaline Cast (Auto) (0-2) /LPF Urine Microscopic RBC (0-5) /HPF Urine Microscopic WBC (0-5) /HPF Ur Epithelial Cells (None Seen) /HPF Urine Bacteria (None Seen) /HPF Urine Culture Reflexed (NO) - Progress Progress: unchanged Progress Note: 04/19/22 11:16 CAT scan of the abdomen pelvis shows mild diffuse fecal stasis. There is stable large hiatal hernia with partial intrathoracic stomach. There are no acute, emergent findings. 04/19/22 11:40 This patient's medical issues of moderate complexity. This is based on the patient's complaint, history of present illness, physical findings on examination. This prompted me to order of the work-up that included a urinalysis, blood work and CAT scan of the abdomen pelvis. The results of these studies were reviewed by me. They were discussed with the patient and her spouse. Patient is in need of intravenous antibiotic to treat a urinary tract infection. We will give her intravenous Rocephin. Discharge planning includes drinking plenty of fluids, continue antibiotics as prescribed and follow-up with your primary care physician for further evaluation and management. Counseled pt/family regarding: lab results, diagnosis, need for follow-up, rad results Medical Desision Making - Independent Historian Additional History obtained from: Spouse - External Record(s) Reviewed Records reviewed as a part of evaluation & management: Discharge Summary - Discussion of managment Reviewed:: Test results Agreed on:: Treatment plan, need for follow-up - Diagnostic Testing Radiological Interpretation: Reviewed by me, Teleradiologist Report - Risk of complications Low Risk: Low risk of morbidity from additional dx testing or treatment - Departure Departure Disposition: Home Clinical Impression: Abdominal pain, Hiatal hernia, UTI (urinary tract infection) Condition: Stable Critical Care Time: No Referrals: ANJELICA MORENO MD [Primary Care Provider] - Follow up/PCP as directed Additional Instructions: Drink plenty of clear liquids. Follow-up with your primary care provider for further evaluation management. Take your medications as prescribed. Prescriptions: Ciprofloxacin [Cipro 500 MG] 500 mg PO BID #14 tablet
[2022-04-19 09:37] LABS: Absolute Neutrophil Ct (ANC) 5.73 x10^3/uL (1.4-6.9); BASOPHIL % 0.4 % (0.0-0.4); Basophil (Absolute #) 0.03 x10^3/uL (0-0.4); Eosinophil % 0.6 % (0.00-5.0); Eosinophil (Absolute #) 0.05 x10^3/uL (0-0.5); Hematocrit 47.3 % (35-47); Hemoglobin 15.3 g/dL (12.0-16.0); IMMATURE GRAN # 0.02 x10^3u/L (0.00-0.03); IMMATURE GRAN % 0.2 % (0.00-0.4); Lymphocyte (Absolute #) 1.75 x10^3/uL (1.0-4.6); Lymphocytes % 20.9 % (24.0-44.0); Mean Cell Volume 97.9 fL (78-100); Mean Corpuscular Hemoglobin 31.7 pg (26-32); Mean Corpuscular Hgb Concent. 32.3 g/dL (32-36); Mean Platelet Volume 11.1 fL (7.5-11.0); Monocytes % 9.5 % (0.0-12.0); Neutrophil % 68.4 % (36.0-66.0); Platelet Count 143 x10^3/uL (150-450); Red Blood Count 4.83 x10^6/uL (4.1-5.4); Red Cell Distribution Width 14.6 % (11.5-14.0); White Blood Count 8.4 x10^3/uL (4.0-10.5)
[2022-04-19 09:44] VITALS: O2SAT 94
[2022-04-19 09:50] LABS: ALBUMIN 4.4 g/dL (3.5-5.0); ANION GAP 13.1 MEQ/L (5-15); BILIRUBIN,TOTAL 0.8 mg/dL (0.2-1.3); Calcium 9.4 mg/dL (8.4-10.2); Creatinine 1 1.2 mg/dL (0.52-1.04); EST GLOMERULAR FILTRATION RATE 46.2 ML/MIN; Potassium 4.4 mmol/L (3.5-5.1); Total Protein 7.4 g/dL (6.3-8.2)
--- NOTE | 2022-04-19 10:14 | XRAY ---
Indication: Epigastric and right lower quadrant pain. Constipation. Multiple contiguous images obtained through the abdomen and pelvis without contrast. Comparison: CT abdomen December 11, 2021 Lung bases again demonstrate minimal fibrosis/scarring. Heart is not enlarged. Again large hiatal hernia with partial intrathoracic stomach. Right lower back epidural stimulator device again produces beam artifact. Noncontrasted stomach and bowel loops are nonobstructed. Appendix not clearly seen. There is now mild diffuse scattered colonic fecal debris throughout. Again polycystic appearing left kidney with faint thin calcifications, tiny splenic calcified granulomas, and cholecystectomy clips. Hysterectomy reported. No free fluid/air. Remaining liver, pancreas, spleen, adrenal glands, kidneys, ureters, and bladder are unremarkable for noncontrast exam. There remains moderate aortoiliac calcifications without AAA. Osseous structures intact again with osteopenia, superior T12 Schmorl node versus remote fracture, and epidural stimulator leads with tip not included in [id number]. Impression: 1. New mild diffuse fecal stasis. 2. Stable large hiatal hernia with partial intrathoracic stomach, beam artifact from epidural stimulator device, slightly complex polycystic left kidney, arteriosclerotic disease, and chronic bony findings.
[2022-04-19 11:27] LABS: Appearance Clear (Clear); Bacteria Moderate /HPF (None Seen); Bilirubin Negative (Negative); Blood Negative (Negative); Epithelial Cells None Seen /HPF (None Seen); Glucose, Urine Negative (Negative); Ketones Negative (Negative); Leukocyte Esterase Small (Negative); Nitrite Positive (Negative); Protein,Urine Dip Negative (Negative); RBC 0-2 /HPF (0-5); Specific Gravity >=1.030 (1.005-1.030); Urobilinogen 0.2 mg/dL (0.2)
[2022-04-19 11:36] LABS: ADD URINE CULTURE? YES (NO)
[2022-04-19] MEDS ORDERED: ROCEPHIN 1 Gm-D5w 50 ml Bag** 1 G/50 ML IVPB IV STA (11:39)
[2022-04-19] MEDS ORDERED: ROCEPHIN 1 Gm-D5w 50 ml Bag** 1 G/50 ML IVPB IV ONE (11:47)
[2022-04-19 12:07] VITALS: BP 147/78; PULSE 88
== END 2022-04-19 12:35 | disposition home or self-care (01) ==
LOC: ED 08:30
DX: N39.0 Urinary tract infection, site not specified (principal); K44.9 Diaphragmatic hernia without obstruction or gangrene; R10.11 Right upper quadrant pain; R10.13 Epigastric pain; I10 Essential (primary) hypertension; E78.5 Hyperlipidemia, unspecified; E11.9 Type 2 diabetes mellitus without complications; Z79.02 Long term (current) use of antithrombotics/antiplatelets; Z79.84 Long term (current) use of oral hypoglycemic drugs; Z79.85 Long-term (current) use of injectable non-insulin antidiabetic drugs; Z79.899 Other long term (current) drug therapy
CPT/HCPCS: 36000; 36415; 74176; 80053; 81001; 82150; 83690; 84484; 85025; 87077; 87086; 87186; 96365; 99284; J0696

== ENCOUNTER 2022-09-12 14:00 | Emergency (ER) | payer MEDICARE, OTHER ==
--- NOTE | 2022-09-12 14:03 | ERPHSYRPT ---
- History of Present Illness Time Seen by Provider: 09/12/22 14:03 Historian: patient Exam Limitations: no limitations Physician History: This is a 76-year-old white female patient of Dr. Moreno and has a history of diarrhea for the last 6 days. Patient saw her primary care physician yesterday and she is taking a total of 4 doses of Flagyl orally since her prescription was filled yesterday. She denies nausea vomiting. She has no chest pain. She has no shortness of breath. She has no significant abdominal pain. The diarrhea has not subsided. Patient has a history of COPD, hypertension, diabetes, gastroesophageal reflux disease, hyperlipidemia, atrial fibrillation, CVA and coronary artery disease (coronary stents). Patient is on Lasix and Plavix. Timing/Duration: day(s) (6) Activities at Onset: none Quality: cramping (Very mild generalized) Abdominal Pain Onset Location: generalized abdomen Severity of Pain-Max: mild Severity of Pain-Current: none Associated Symptoms: diarrhea Previous symptoms: no prior history, recently seen, recently treated Allergies/Adverse Reactions: No Known Drug Allergies Allergy (Verified 09/12/22 14:11) Home Medications: Amlodipine Besylate 10 mg [Norvasc 10 MG] 10 mg PO DAILY 03/04/16 [History] Budesonide/Formoterol Fumarate [Symbicort 80-4.5 Mcg Inhaler] 1 puff IH BID 03/04/16 [History] Isosorbide Mononitrate 30 mg [Imdur 30 MG] 30 mg PO DAILY 03/04/16 [History] Metoprolol Tartrate 25 mg [Lopressor 25MG Tab] 25 mg PO DAILY 03/04/16 [History] Polyethylene Glycol 3350 17 gm [Miralax Powder 17GM PACKET] 17 gm PO DAILY PRN PRN 03/04/16 [History] Verapamil HCl Sr [Isoptin Sr] 240 mg PO DAILY 03/04/16 [History] Furosemide [Lasix] 20 mg PO DAILY 08/18/21 [History] Pregabalin 75 mg PO TID 08/18/21 [History] Clopidogrel Bisulfate [PLAVIX Tablet] 75 mg PO DAILY 09/08/21 [History] Hydrocodone/Acetaminophen [Hydrocodone-Acetamin 10-325 mg] 10 mg PO Q6H PRN 09/08/21 [History] Metformin HCl Xr 500 mg [Glucophage XR 500 MG] 1,000 mg PO DAILY 09/08/21 [History] PANTOPRAZOLE 40 mg Tablet [Protonix 40MG Tablet] 40 mg PO DAILY 09/08/21 [History] Triamterene 50 mg PO DAILY 09/08/21 [History] Atorvastatin Calcium [Lipitor 40Mg] 40 mg PO DAILY 04/19/22 [History] Duloxetine HCl [Cymbalta] 60 mg PO DAILY 04/19/22 [History] Exenatide Microspheres [Bydureon Bcise] 2 mg SQ WEEKLY 04/19/22 [History] Prochlorperazine Maleate 5 mg* [Compazine 5 MG] 5 mg PO TID 04/19/22 [History] Hx Tetanus, Diphtheria Vaccination/Date Given: No Hx Influenza Vaccination/Date Given: Yes Hx Pneumococcal Vaccination/Date Given: Yes Travel Risk - International Travel Have you traveled outside of the country in past 3 weeks: No - Coronavirus Screening Are you exhibiting any of the following symptoms?: Yes Close contact with a COVID-19 positive Pt in past 14-21 Days: No - Vaccine Status Have you recieved a Covid-19 vaccination: Yes [employer]: Moderna - Vaccination Dates Date of 2cond Vaccination (if applicable): 06/2020 - Review of Systems Constitutional: Weakness Eyes: No Symptoms Ears, Nose, & Throat: No Symptoms Respiratory: No Symptoms Cardiac: No Symptoms, Other Abdominal/Gastrointestinal: Diarrhea, No Abdominal Pain, No Nausea, No Vomiting, No Constipation Genitourinary Symptoms: Incontinence Musculoskeletal: No Symptoms Skin: No Symptoms Neurological: No Symptoms Psychological: No Symptoms Endocrine: No Symptoms Hematologic/Lymphatic: No Symptoms Immunological/Allergic: No Symptoms All Other Systems: Reviewed and Negative - Past Medical History Pertinent Past Medical History: Yes Neurological History: Stroke ENT History: No Pertinent History Cardiac History: Arrhythmia, Coronary Artery Disease, Hypertension, Myocardial Infarction (SC) Respiratory History: Bronchitis Endocrine Medical History: Diabetes Type II, Hypothyroidism Musculoskeletal History: Osteoarthritis, Other GI Medical History: GERD History: Other Psycho-Social History: No Pertinent History Female Reproductive Disorders: No Pertinent History Other Medical History: PT. HAD STENTS 5-6 YEARS AGO. PT. REPORTS SHE HAS ANGINA OCCASIONALLY. PT. SUSTAINED VERTEBRAL FXS IN 1985. HX L-SPINE OA. cyst on one of her kidneys - Past Surgical History Past Surgical History: Yes Neuro Surgical History: No Pertinent History Cardiac: Cardiac Stent Respiratory: No Pertinent History Gastrointestinal: Cholecystectomy Musculoskeletal: Orthopedic Surgery Female Surgical History: Hysterectomy - Social History Smoking Status: Former smoker Exposure to second hand smoke: No Drug Use: none Patient Lives Alone: No - Nursing Vital Signs Nursing Vital Signs: Initial Vital Signs Temperature 97.6 F 09/12/22 14:11 Pulse Rate 90 09/12/22 14:11 Respiratory Rate 18 09/12/22 14:11 Blood Pressure 193/95 09/12/22 14:11 O2 Sat by Pulse Oximetry 98 09/12/22 14:11 Pain Scale Pain Intensity 0 - Physical Exam General Appearance: no apparent distress, alert, anxiety Eye Exam: PERRL/EOMI, eyes nml inspection Ears, Nose, Throat Exam: normal ENT inspection, moist mucous membranes Neck Exam: normal inspection, non-tender, supple, full range of motion Respiratory Exam: normal breath sounds, lungs clear, airway intact, No chest tenderness, No respiratory distress Cardiovascular Exam: regular rate/rhythm, normal heart sounds, normal peripheral pulses Gastrointestinal/Abdomen Exam: soft, normal bowel sounds, No tenderness Pelvic Exam: not done Rectal Exam: not done Back Exam: normal inspection, normal range of motion, No CVA tenderness, No vertebral tenderness Extremity Exam: normal inspection, normal range of motion, pelvis stable Neurologic Exam: alert, oriented x 3, cooperative, correctional nurse II-XII nml as tested, normal mood/affect Skin Exam: normal color, warm, dry Lymphatic Exam: No adenopathy SpO2 Interpretation: normal O2 Delivery: Room Air - Course Nursing assessment & vital signs reviewed: Yes Ordered Tests: Active Orders 24 hr Category Date Time Status IV Insertion STAT Care 09/12/22 14:39 Active ABDOMEN AND PELVIS W/0 CONTRAS [CT] Stat Exams 09/12/22 14:39 Completed AMYLASE Stat Lab 09/12/22 14:18 Completed BLOOD CULTURE Stat Lab 09/12/22 15:40 Received CBC W DIFF Stat Lab 09/12/22 14:18 Completed CMP Stat Lab 09/12/22 14:18 Completed LIPASE Stat Lab 09/12/22 14:18 Completed Lactic Acid Stat Lab 09/12/22 14:50 Completed UA W/RFX UR CULTURE Stat Lab 09/12/22 16:17 Completed Medication Summary Generic Name Dose Route Start Last Admin Trade Name Bell PRN Reason Stop Dose Admin Sodium Chloride 500 mls @ 500 mls/hr 09/12/22 16:02 09/12/22 16:09 Sodium Chloride 0.9% 500 Ml IV 09/12/22 17:01 500 mls/hr .Q1H ONE Administration Discontinued Medications Generic Name Dose Route Start Last Admin Trade Name Bell PRN Reason Stop Dose Admin Sodium Chloride 1,000 mls @ 999 mls/hr 09/12/22 14:39 09/12/22 15:47 Sodium Chloride 0.9% 1000 Ml IV 09/12/22 15:39 Infused .Q1H1M STA Infusion Sodium Chloride Confirm 09/12/22 14:44 Sodium Chloride 0.9% 1000 Ml Administered 09/12/22 14:45 Dose 1,000 mls @ ud .ROUTE .STK-MED ONE Sodium Chloride Confirm 09/12/22 16:09 Sodium Chloride 0.9% 500 Ml Administered 09/12/22 16:10 Dose 500 mls @ ud IV .STK-MED ONE Lab/Rad Data: Laboratory Result Diagrams 09/12/22 14:18 09/12/22 14:18 Laboratory Results 09/12/22 09/12/22 09/12/22 Range/Units Unknown 16:17 14:50 WBC (4.0-10.5) x10^3/uL RBC (4.1-5.4) x10^6/uL Hgb (12.0-16.0) g/dL Hct (35-47) % MCV (78-100) fL MCH (26-32) pg MCHC (32-36) g/dL RDW (11.5-14.0) % Plt Count (150-450) x10^3/uL MPV (7.5-11.0) fL Gran % (36.0-66.0) % Immature Gran % (Auto) (0.00-0.4) % Nucleat RBC Rel Count (0.00-0.1) % Eos # (Auto) (0-0.5) x10^3/uL Immature Gran # (Auto) (0.00-0.03) x10^3u/L Absolute Lymphs (auto) (1.0-4.6) x10^3/uL Absolute Monos (auto) (0.0-1.3) x10^3/uL Absolute Nucleated RBC (0.00-0.01) x10^3u/L Lymphocytes % (24.0-44.0) % Monocytes % (0.0-12.0) % Eosinophils % (0.00-5.0) % Basophils % (0.0-0.4) % Absolute Granulocytes (1.4-6.9) x10^3/uL Basophils # (0-0.4) x10^3/uL Sodium (137-145) mmol/L Potassium (3.5-5.1) mmol/L Chloride (98-107) mmol/L Carbon Dioxide (22-30) mmol/L Anion Gap (5-15) MEQ/L BUN (7-17) mg/dL Creatinine (0.52-1.04) mg/dL Estimated GFR ML/MIN Glucose (74-106) mg/dL Lactic Acid 1.9 (0.4-2.0) Calcium (8.4-10.2) mg/dL Total Bilirubin (0.2-1.3) mg/dL AST (14-36) U/L ALT (0-35) U/L Alkaline Phosphatase (38-126) U/L Serum Total Protein (6.3-8.2) g/dL Albumin (3.5-5.0) g/dL Amylase (30-110) U/L Lipase (23-300) U/L Urine Color Yellow (Yellow) Urine Appearance Clear (Clear) Urine pH 6.0 (4.6-8.0) Ur Specific [place] <=1.005 (1.005-1.030) Urine Protein Negative (Negative) Urine Glucose (UA) Negative (Negative) mg/dL Urine Ketones Negative (Negative) Urine Blood Negative (Negative) Urine Nitrite Negative (Negative) Urine Bilirubin Negative (Negative) Urine Urobilinogen 0.2 (0.2) mg/dL Ur Leukocyte Esterase Trace A (Negative) U Hyaline Cast (Auto) NONE SEEN (0-2) /LPF Urine Microscopic RBC 0-2 (0-5) /HPF Urine Microscopic WBC 0-2 (0-5) /HPF Ur Epithelial Cells None Seen (None Seen) /HPF Urine Bacteria None Seen (None Seen) /HPF Urine Culture Reflexed NO (NO) Influenza Type A Ag NEGATIVE (NEGATIVE) Influenza Type B Ag NEGATIVE (NEGATIVE) RSV (PCR) NEGATIVE (NEGATIVE) SARS-CoV-2 (PCR) NEGATIVE (NEGATIVE) 09/12/22 09/12/22 Range/Units 14:18 14:18 WBC 8.1 (4.0-10.5) x10^3/uL RBC 4.92 (4.1-5.4) x10^6/uL Hgb 15.2 (12.0-16.0) g/dL Hct 46.3 (35-47) % MCV 94.1 (78-100) fL MCH 30.9 (26-32) pg MCHC 32.8 (32-36) g/dL RDW 13.2 (11.5-14.0) % Plt Count 176 (150-450) x10^3/uL MPV 12.3 H (7.5-11.0) fL Gran % 66.0 (36.0-66.0) % Immature Gran % (Auto) 0.4 (0.00-0.4) % Nucleat RBC Rel Count 0.0 (0.00-0.1) % Eos # (Auto) 0.03 (0-0.5) x10^3/uL Immature Gran # (Auto) 0.03 (0.00-0.03) x10^3u/L Absolute Lymphs (auto) 1.73 (1.0-4.6) x10^3/uL Absolute Monos (auto) 0.92 (0.0-1.3) x10^3/uL Absolute Nucleated RBC 0.00 (0.00-0.01) x10^3u/L Lymphocytes % 21.4 L (24.0-44.0) % Monocytes % 11.4 (0.0-12.0) % Eosinophils % 0.4 (0.00-5.0) % Basophils % 0.4 (0.0-0.4) % Absolute Granulocytes 5.36 (1.4-6.9) x10^3/uL Basophils # 0.03 (0-0.4) x10^3/uL Sodium 140 (137-145) mmol/L Potassium 3.5 (3.5-5.1) mmol/L Chloride 103 (98-107) mmol/L Carbon Dioxide 25 (22-30) mmol/L Anion Gap 15.3 H (5-15) MEQ/L BUN 15 (7-17) mg/dL Creatinine 0.92 (0.52-1.04) mg/dL Estimated GFR > 60.0 ML/MIN Glucose 160 H (74-106) mg/dL Lactic Acid (0.4-2.0) Calcium 9.4 (8.4-10.2) mg/dL Total Bilirubin 0.50 (0.2-1.3) mg/dL AST 31 (14-36) U/L ALT 21 (0-35) U/L Alkaline Phosphatase 90 (38-126) U/L Serum Total Protein 7.8 (6.3-8.2) g/dL Albumin 4.6 (3.5-5.0) g/dL Amylase 47 (30-110) U/L Lipase 56 (23-300) U/L Urine Color (Yellow) Urine Appearance (Clear) Urine pH (4.6-8.0) Ur Specific [place] (1.005-1.030) Urine Protein (Negative) Urine Glucose (UA) (Negative) mg/dL Urine Ketones (Negative) Urine Blood (Negative) Urine Nitrite (Negative) Urine Bilirubin (Negative) Urine Urobilinogen (0.2) mg/dL Ur Leukocyte Esterase (Negative) U Hyaline Cast (Auto) (0-2) /LPF Urine Microscopic RBC (0-5) /HPF Urine Microscopic WBC (0-5) /HPF Ur Epithelial Cells (None Seen) /HPF Urine Bacteria (None Seen) /HPF Urine Culture Reflexed (NO) Influenza Type A Ag (NEGATIVE) Influenza Type B Ag (NEGATIVE) RSV (PCR) (NEGATIVE) SARS-CoV-2 (PCR) (NEGATIVE) - Progress Progress: improved, re-examined Progress Note: 09/12/22 15:42 CT scan of the abdomen pelvis without contrast shows a hiatal hernia with partial intrathoracic stomach. There is evidence of sigmoid diverticulosis without diverticulitis. There is no new or acute findings on this noncontrasted examination. This patient's medical issue is 1 of moderate complexity. The level of complexity in the work-up performed is based on review of the patient's past medical history, review of the patient's medication list, review of the drug allergy list, history present illness and physical findings on examination. The work-up in this patient includes a CT scan of the abdomen pelvis, infusion of intravenous fluids, urinalysis, CBC, CMP, amylase and lipase levels as well as l actic acid levels. I reviewed the repeat results of the work-up thus far. The urinalysis is pending. The above-stated CT scan of the abdomen pelvis without contrast result is as above. 09/12/22 16:13 Clinically, the patient states that she is feeling better. Medical Desision Making - Diagnostic Testing Diagnostic test were ordered, analyzed, and reviewed by me: Yes Radiological Interpretation: Reviewed by me, Teleradiologist Report - Risk of complications Low Risk: Low risk of morbidity from additional dx testing or treatment - Departure Departure Disposition: Home Clinical Impression: Diarrhea Condition: Stable Critical Care Time: No Referrals: ANJELICA MORENO MD [Primary Care Provider] - Follow up/PCP as directed Additional Instructions: Drink plenty of clear liquids before advancing your diet. Continue your Flagyl antibiotic as prescribed. Call your primary care doctor tomorrow, 09/13/2022, for further instructions, management and evaluation
[2022-09-12] MEDS ORDERED: Sodium Chloride 0.9% 1000 ML 1,000 ML IV STA (14:39)
[2022-09-12] MEDS ORDERED: Sodium Chloride 0.9% 1000 ML 1,000 ML ONE (14:44)
[2022-09-12 14:56] LABS: Absolute Neutrophil Ct (ANC) 5.36 x10^3/uL (1.4-6.9); BASOPHIL % 0.4 % (0.0-0.4); Basophil (Absolute #) 0.03 x10^3/uL (0-0.4); Eosinophil % 0.4 % (0.00-5.0); Eosinophil (Absolute #) 0.03 x10^3/uL (0-0.5); Hematocrit 46.3 % (35-47); Hemoglobin 15.2 g/dL (12.0-16.0); IMMATURE GRAN # 0.03 x10^3u/L (0.00-0.03); IMMATURE GRAN % 0.4 % (0.00-0.4); Lymphocyte (Absolute #) 1.73 x10^3/uL (1.0-4.6); Lymphocytes % 21.4 % (24.0-44.0); Mean Cell Volume 94.1 fL (78-100); Mean Corpuscular Hemoglobin 30.9 pg (26-32); Mean Corpuscular Hgb Concent. 32.8 g/dL (32-36); Mean Platelet Volume 12.3 fL (7.5-11.0); Monocyte (Absolute #) 0.92 x10^3/uL (0.0-1.3); Monocytes % 11.4 % (0.0-12.0); Platelet Count 176 x10^3/uL (150-450); Red Blood Count 4.92 x10^6/uL (4.1-5.4); Red Cell Distribution Width 13.2 % (11.5-14.0); White Blood Count 8.1 x10^3/uL (4.0-10.5)
--- NOTE | 2022-09-12 15:08 | XRAY ---
Indication: Diarrhea. Multiple contiguous axial images obtained through the abdomen and pelvis without contrast. Comparison: April 19, 2022 Lung bases again demonstrate minimal fibrosis/scarring. Heart not enlarged. Stable large hiatal hernia with partial intrathoracic stomach. Noncontrasted stomach and bowel loops nonobstructed. Appendix not seen. Again minimal sigmoid diverticulosis, polycystic appearing left kidney with faint thin calcifications, tiny splenic calcified granulomas, right lower back epidural stimulator device, cholecystectomy, and hysterectomy. No free fluid/air. Remaining liver, pancreas, spleen, adrenal glands, kidneys, ureters, and bladder are unremarkable for noncontrast exam. Stable moderate aortoiliac calcifications without AAA. Osseous structures intact again with osteopenia, superior T12 Schmorl node versus remote fracture, and epidural stimulator leads with tips not included in [id number]. Impression: Again chronic findings including hiatal hernia with partial intrathoracic stomach, beam artifact from epidural stimulator device, sigmoid diverticulosis, complex polycystic left kidney, arteriosclerotic disease, chronic bony findings, and old granulomatous disease. No new/acute findings on this noncontrast exam.
[2022-09-12 15:09] LABS: ALBUMIN 4.6 g/dL (3.5-5.0); ALKALINE PHOSPHATASE 90 U/L (38-126); AMYLASE 47 U/L (30-110); ANION GAP 15.3 MEQ/L (5-15); BLOOD UREA NITROGEN 15 mg/dL (7-17); CHLORIDE 103 mmol/L (98-107); Calcium 9.4 mg/dL (8.4-10.2); Carbon Dioxide 25 mmol/L (22-30); Creatinine 1 0.92 mg/dL (0.52-1.04); EST GLOMERULAR FILTRATION RATE > 60.0 ML/MIN; Glucose 160 mg/dL (74-106); LIPASE 56 U/L (23-300); Potassium 3.5 mmol/L (3.5-5.1); SGOT/AST 31 U/L (14-36); SGPT/ALT 21 U/L (0-35); SODIUM 140 mmol/L (137-145); Total Protein 7.8 g/dL (6.3-8.2)
[2022-09-12] MEDS ORDERED: Sodium Chloride 0.9% 500 ML 500 ML IV ONE ×2 (16:02→16:09)
[2022-09-12 16:03] VITALS: PULSE 81
[2022-09-12 16:27] LABS: INFLUENZA A NEGATIVE (NEGATIVE); INFLUENZA B NEGATIVE (NEGATIVE); RESPIRATORY SYNCTIAL VIRUS NEGATIVE (NEGATIVE); SARS-CoV-2 Xpert Express NEGATIVE (NEGATIVE)
[2022-09-12 16:32] LABS: Appearance Clear (Clear); Bacteria None Seen /HPF (None Seen); Bilirubin Negative (Negative); Blood Negative (Negative); Epithelial Cells None Seen /HPF (None Seen); Glucose, Urine Negative (Negative); Hyaline Casts NONE SEEN /LPF (0-2); Ketones Negative (Negative); Leukocyte Esterase Trace (Negative); Nitrite Negative (Negative); Protein,Urine Dip Negative (Negative); RBC 0-2 /HPF (0-5); Specific Gravity <=1.005 (1.005-1.030); Urobilinogen 0.2 mg/dL (0.2); WBC 0-2 /HPF (0-5)
[2022-09-12 16:34] LABS: ADD URINE CULTURE? NO (NO)
[2022-09-12 17:12] VITALS: BP 174/62; O2SAT 92
== END 2022-09-12 17:21 | disposition home or self-care (01) ==
LOC: ED 14:00
DX: R19.7 Diarrhea, unspecified (principal); I10 Essential (primary) hypertension; E11.9 Type 2 diabetes mellitus without complications; E78.5 Hyperlipidemia, unspecified; Z79.02 Long term (current) use of antithrombotics/antiplatelets; Z79.84 Long term (current) use of oral hypoglycemic drugs; Z79.899 Other long term (current) drug therapy; Z20.828 Contact with and (suspected) exposure to other viral communicable diseases
CPT/HCPCS: 0241U; 36000; 36415; 74176; 80053; 81001; 82150; 83605; 83690; 85025; 87040; 96360; 96361; 99284; 96376

== ENCOUNTER 2022-11-13 08:59 | Day surgery (SDC) | payer MEDICARE, OTHER ==
[2022-11-13] MEDS ORDERED: NON-FORMULARY ITEM OP ONE (09:00)
[2022-11-13] MEDS ORDERED: cefUROXime sodium 0.005 GM in Sodium Chloride Flush 30 ML*** 0.5 ML IJ ONE (09:00)
[2022-11-13] MEDS ORDERED: Epinephrine Preservative Free 1 MG/ML IJ ONE (09:00)
[2022-11-13] MEDS ORDERED: TETRACAINE 0.5% STERI-UNIT SOL OP ONE (09:00)
[2022-11-13] MEDS ORDERED: Ak-Dilate OPHTHALMIC*** 1.065 ML, Cyclogyl 1% OPHTH SOL 1.065 ML, GATIFLOXACIN 0.5% OPH... OP ONE ×4 (09:00)
[2022-11-13] MEDS ORDERED: Lactated Ringers 1,000 ML IV SCH (09:00)
[2022-11-13] MEDS ORDERED: BETADINE 5% OPHTHALMIC 30 ML OP ONE (09:00)
[2022-11-13] MEDS ORDERED: Lactated Ringers 1,000 ML IV ONE (09:21)
[2022-11-13 09:48] VITALS: RESP 18
[2022-11-13] MEDS: TETRACAINE 0.5% STERI-UNIT SOL OP ONE ×2 (10:08→10:35)
[2022-11-13] MEDS ORDERED: Zofran 4 MG/2 ML VIAL IV PRN (11:15)
[2022-11-13] MEDS ORDERED: ACETAZOLAMIDE 250 MG TABLET PO ONE (11:15)
[2022-11-13] MEDS ORDERED: DIPRIVAN 200 MG/20 ML IV ONE (12:38)
[2022-11-13] MEDS ORDERED: Xylocaine-Mpf 2% 5 Ml Vial ONE (12:39)
[2022-11-13 13:00] VITALS: TEMP 97.3
[2022-11-13 13:14] VITALS: BP 164/94; PULSE 77; O2SAT 93
== END 2022-11-13 13:18 | disposition home or self-care (01) ==
LOC: SDC 08:59
PROVIDERS: ATTEND Ophthalmology
DX: H25.811 Combined forms of age-related cataract, right eye (principal); E11.9 Type 2 diabetes mellitus without complications
CPT/HCPCS: 82947; J0171; J2704; A9270-GY

== ENCOUNTER 2023-05-15 09:30 | Emergency (ER) | payer MEDICARE ==
[2023-05-15 09:48] VITALS: TEMP 97
--- NOTE | 2023-05-15 09:51 | ERPHSYRPT ---
- History of Present Illness Time Seen by Provider: 05/15/23 09:50 Source: patient Exam Limitations: no limitations Physician History: This is a 77-year-old white female patient of Dr. Moreno. She presents to the emergency department with 1 month history of intermittent dizziness. However, today, her symptoms of dizziness, headache body aches and epigastric abdominal pain are now more constant. In the last several weeks the patient has seen her education courses sales representative, Dr. Reyes, who ordered a EKG, echocardiogram and stress test. The patient had those test performed within the last 2 weeks. Patient denies chest pain. Patient denies shortness of breath. Patient does have a history of COPD, hypertension, diabetes, gastroesophageal reflux disease, hyperlipidemia, a trial fibrillation, CVA, and coronary artery disease (cardiac stents). Patient is taking Plavix. Patient has not had any visual changes. She has not had a fever. She does admit to chronic coughing. Timing/Duration: today, week(s) (4), worse Quality: aching, pressure Head Pain Location: global Severity of Pain-Max: mild (To moderate) Severity of Pain-Current: mild (To moderate) Associated Symptoms: dizziness, No neck pain, No sensitive to light, No stiff neck, No vision changes Previous symptoms: no prior history, no recent treatment Allergies/Adverse Reactions: No Known Drug Allergies Allergy (Verified 05/15/23 09:45) Home Medications: Isosorbide Mononitrate 30 mg [Imdur 30 MG] 30 mg PO DAILY 03/04/16 [History] Metoprolol Tartrate 25 mg [Lopressor 25MG Tab] 25 mg PO DAILY 03/04/16 [History] Verapamil HCl Sr [Isoptin Sr] 240 mg PO DAILY 03/04/16 [History] Furosemide [Lasix] 20 mg PO DAILY 08/18/21 [History] Pregabalin 75 mg PO TID 08/18/21 [History] Clopidogrel Bisulfate [PLAVIX Tablet] 75 mg PO DAILY 09/08/21 [History] Hydrocodone/Acetaminophen [Hydrocodone-Acetamin 10-325 mg] 10 mg PO Q6H PRN 09/08/21 [History] PANTOPRAZOLE 40 mg Tablet [Protonix 40MG Tablet] 40 mg PO DAILY 09/08/21 [History] Diphenoxylate HCl/Atropine [Diphenoxylate-Atrop 2.5-0.025] 1 tab PO UD 11/08/22 [History] Exenatide Microspheres [Bydureon Bcise] 1 amp SQ UD 11/08/22 [History] Rosuvastatin Calcium 20 mg PO UD 11/08/22 [History] Lactobacillus Rhamnosus GG [Culturelle] 1 each PO DAILY 11/13/22 [History] Hx Tetanus, Diphtheria Vaccination/Date Given: No Hx Influenza Vaccination/Date Given: Yes Hx Pneumococcal Vaccination/Date Given: Yes Travel Risk - Vaccine Status Have you recieved a Covid-19 vaccination: Yes Blade Changer: Moderna - Vaccination Dates Date of 2cond Vaccination (if applicable): 06/2020 - Past Medical History Pertinent Past Medical History: Yes Neurological History: Stroke ENT History: No Pertinent History Cardiac History: Arrhythmia, Coronary Artery Disease, High Cholesterol, Hypertension Respiratory History: Bronchitis Endocrine Medical History: Diabetes Type II, Hypothyroidism Musculoskeletal History: Osteoarthritis, Other GI Medical History: GERD History: Other Psycho-Social History: No Pertinent History Female Reproductive Disorders: No Pertinent History Other Medical History: PT. HAD 3 STENTS 5-6 YEARS AGO. PT. REPORTS SHE HAS ANGINA OCCASIONALLY. PT. SUSTAINED VERTEBRAL FXS IN 1985. HX L-SPINE OA. cyst on one of her kidneys stimulator in spine, cycst off spine rt ankle - Past Surgical History Past Surgical History: Yes Neuro Surgical History: No Pertinent History Cardiac: Cardiac Stent Respiratory: No Pertinent History Gastrointestinal: Cholecystectomy Musculoskeletal: Orthopedic Surgery Female Surgical History: Hysterectomy Other Surgical History: rt ankle,back stimulator,spine cyst removed - Social History Smoking Status: Former smoker Exposure to second hand smoke: No Drug Use: none Patient Lives Alone: No - Nursing Vital Signs Nursing Vital Signs: Initial Vital Signs Temperature 97.0 F 05/15/23 09:47 Pulse Rate 48 L 05/15/23 09:47 Respiratory Rate 16 05/15/23 09:47 Blood Pressure 120/41 05/15/23 09:47 O2 Sat by Pulse Oximetry 94 L 05/15/23 09:47 Pain Scale Pain Intensity 4 - Physical Exam SpO2: 94 - Course Nursing assessment & vital signs reviewed: Yes EKG Interpreted by Me: RATE (42), NORMAL AXIS, NORMAL INTERVALS, NORMAL QRS, NORMAL ST-T, Other (There is no evidence of acute ischemic changes on today's twelve-lead EKG. Today's junctional rhythm is different when compared to twelve-lead EKG dated 09/08/2021 where the heart rate was 60 and normal sinus rhythm.) Ordered Tests: Active Orders 24 hr Category Date Time Status EKG-ER Only STAT Care 05/15/23 10:12 Active IV Insertion STAT Care 05/15/23 10:12 Active ABDOMEN AND PELVIS W/0 CONTRAS [CT] Stat Exams 05/15/23 10:13 Completed HEAD WITHOUT CONTRAST [CT] Stat Exams 05/15/23 10:17 Completed AMYLASE Stat Lab 05/15/23 10:00 Completed BLOOD CULTURE Stat Lab 05/15/23 11:18 Received CBC W DIFF Stat Lab 05/15/23 10:12 Completed CMP Stat Lab 05/15/23 10:00 Completed CULTURE,URINE Stat Lab 05/15/23 11:38 Received LIPASE Stat Lab 05/15/23 10:00 Completed Lactic Acid Stat Lab 05/15/23 10:12 Completed MONO SCREEN Stat Lab 05/15/23 10:00 Completed Occult Blood-Fecal Screen (Diagnostic) [OB-FECAL SCREEN Lab 05/15/23 Ordered ] Stat TROPONIN Q4H Lab 05/15/23 10:00 Completed TROPONIN Q4H Lab 05/15/23 14:15 Ordered TROPONIN Q4H Lab 05/15/23 18:15 Ordered TSH, 3RD Generation Stat Lab 05/15/23 10:00 Completed UA W/RFX UR CULTURE Stat Lab 05/15/23 11:38 Completed Medication Summary Generic Name Dose Route Start Last Admin Trade Name Freq PRN Reason Stop Dose Admin Sodium Chloride 1,000 mls @ 100 mls/hr 05/15/23 10:15 05/15/23 10:42 Sodium Chloride 0.9% 1000 Ml IV 06/14/23 10:14 100 mls/hr .Q10H DAE Administration Ceftriaxone Sodium 1 gm in 100 mls @ 200 mls/hr 05/15/23 12:15 05/15/23 12:24 Rocephin 1 Gm / 100 Ml Nacl IV 05/15/23 12:44 200 ml/hr STAT ONE 200 mls/hr Administration Discontinued Medications Generic Name Dose Route Start Last Admin Trade Name Freq PRN Reason Stop Dose Admin Ceftriaxone Sodium Confirm 05/15/23 12:20 Rocephin 1 Gm / 100 Ml Nacl Administered 05/15/23 12:21 Dose 1 gm in 100 mls @ ud IV .STK-MED ONE Ondansetron HCl 4 mg 05/15/23 10:12 05/15/23 10:42 Ondansetron Hcl 4 Mg/2 Ml Vial IV 05/15/23 10:13 4 mg STAT ONE Administration Ondansetron HCl Confirm 05/15/23 10:24 Ondansetron Hcl 4 Mg/2 Ml Vial Administered 05/15/23 10:25 Dose 4 mg .ROUTE .STK-MED ONE Lab/Rad Data: Laboratory Result Diagrams 05/15/23 10:12 05/15/23 10:00 Laboratory Results 05/15/23 05/15/23 05/15/23 Range/Units 11:38 11:12 10:12 WBC (4.0-10.5) x10^3/uL RBC (4.1-5.4) x10^6/uL Hgb (12.0-16.0) g/dL Hct (35-47) % MCV (78-100) fL MCH (26-32) pg MCHC (32-36) g/dL RDW (11.5-14.0) % Plt Count (150-450) x10^3/uL MPV (7.5-11.0) fL Gran % (36.0-66.0) % Immature Gran % (Auto) (0.00-0.4) % Nucleat RBC Rel Count (0.00-0.1) % Eos # (Auto) (0-0.5) x10^3/uL Immature Gran # (Auto) (0.00-0.03) x10^3u/L Absolute Lymphs (auto) (1.0-4.6) x10^3/uL Absolute Monos (auto) (0.0-1.3) x10^3/uL Absolute Nucleated RBC (0.00-0.01) x10^3u/L Lymphocytes % (24.0-44.0) % Monocytes % (0.0-12.0) % Eosinophils % (0.00-5.0) % Basophils % (0.0-0.4) % Absolute Granulocytes (1.4-6.9) x10^3/uL Basophils # (0-0.4) x10^3/uL Sodium (135-145) mmol/L Potassium (3.5-5.1) mmol/L Chloride (98-107) mmol/L Carbon Dioxide (22-30) mmol/L Anion Gap (5-15) MEQ/L BUN (7-17) mg/dL Creatinine (0.52-1.04) mg/dL Estimated GFR ML/MIN Glucose (74-106) mg/dL Lactic Acid 3.1 H (0.4-2.0) Calcium (8.4-10.2) mg/dL Total Bilirubin (0.2-1.3) mg/dL AST (14-36) U/L ALT (0-35) U/L Alkaline Phosphatase (38-126) U/L Troponin I (0.000-0.034) ng/mL Serum Total Protein (6.3-8.2) g/dL Albumin (3.5-5.0) g/dL Amylase (30-110) U/L Lipase (23-300) U/L Free T4 (0.78-2.19) ng/dL TSH 3rd Generation (0.47-4.68) mIU/L Urine Color Yellow (Yellow) Urine Appearance Clear (Clear) Urine pH 5.5 (4.6-8.0) Ur Specific [place] 1.010 (1.005-1.030) Urine Protein Negative (Negative) Urine Glucose (UA) Negative (Negative) mg/dL Urine Ketones Negative (Negative) Urine Blood Negative (Negative) Urine Nitrite Positive A (Negative) Urine Bilirubin Negative (Negative) Urine Urobilinogen 0.2 (0.2) mg/dL Ur Leukocyte Esterase Small A (Negative) U Hyaline Cast (Auto) 11-20 (0-2) /LPF Urine Microscopic RBC 3-5 (0-5) /HPF Urine Microscopic WBC 6-10 A (0-5) /HPF Ur Epithelial Cells None Seen (None Seen) /HPF Urine Bacteria Many A (None Seen) /HPF Urine Culture Reflexed YES (NO) Monoscreen (NEGATIVE) Influenza Type A Ag NEGATIVE (NEGATIVE) Influenza Type B Ag NEGATIVE (NEGATIVE) RSV (PCR) NEGATIVE (NEGATIVE) SARS-CoV-2 (PCR) NEGATIVE (NEGATIVE) 05/15/23 05/15/23 05/15/23 Range/Units 10:12 10:00 10:00 WBC 8.5 (4.0-10.5) x10^3/uL RBC 3.37 L (4.1-5.4) x10^6/uL Hgb 8.6 L (12.0-16.0) g/dL Hct 29.0 L (35-47) % MCV 86.1 (78-100) fL MCH 25.5 L (26-32) pg MCHC 29.7 L (32-36) g/dL RDW 17.0 H (11.5-14.0) % Plt Count 221 (150-450) x10^3/uL MPV 12.5 H (7.5-11.0) fL Gran % 60.2 (36.0-66.0) % Immature Gran % (Auto) 0.4 (0.00-0.4) % Nucleat RBC Rel Count 0.0 (0.00-0.1) % Eos # (Auto) 0.18 (0-0.5) x10^3/uL Immature Gran # (Auto) 0.03 (0.00-0.03) x10^3u/L Absolute Lymphs (auto) 2.34 (1.0-4.6) x10^3/uL Absolute Monos (auto) 0.76 (0.0-1.3) x10^3/uL Absolute Nucleated RBC 0.00 (0.00-0.01) x10^3u/L Lymphocytes % 27.7 (24.0-44.0) % Monocytes % 9.0 (0.0-12.0) % Eosinophils % 2.1 (0.00-5.0) % Basophils % 0.6 (0.0-0.4) % Absolute Granulocytes 5.10 (1.4-6.9) x10^3/uL Basophils # 0.05 (0-0.4) x10^3/uL Sodium (135-145) mmol/L Potassium (3.5-5.1) mmol/L Chloride (98-107) mmol/L Carbon Dioxide (22-30) mmol/L Anion Gap (5-15) MEQ/L BUN (7-17) mg/dL Creatinine (0.52-1.04) mg/dL Estimated GFR ML/MIN Glucose (74-106) mg/dL Lactic Acid (0.4-2.0) Calcium (8.4-10.2) mg/dL Total Bilirubin (0.2-1.3) mg/dL AST (14-36) U/L ALT (0-35) U/L Alkaline Phosphatase (38-126) U/L Troponin I < 0.012 (0.000-0.034) ng/mL Serum Total Protein (6.3-8.2) g/dL Albumin (3.5-5.0) g/dL Amylase (30-110) U/L Lipase (23-300) U/L Free T4 (0.78-2.19) ng/dL TSH 3rd Generation (0.47-4.68) mIU/L Urine Color (Yellow) Urine Appearance (Clear) Urine pH (4.6-8.0) Ur Specific [place] (1.005-1.030) Urine Protein (Negative) Urine Glucose (UA) (Negative) mg/dL Urine Ketones (Negative) Urine Blood (Negative) Urine Nitrite (Negative) Urine Bilirubin (Negative) Urine Urobilinogen (0.2) mg/dL Ur Leukocyte Esterase (Negative) U Hyaline Cast (Auto) (0-2) /LPF Urine Microscopic RBC (0-5) /HPF Urine Microscopic WBC (0-5) /HPF Ur Epithelial Cells (None Seen) /HPF Urine Bacteria (None Seen) /HPF Urine Culture Reflexed (NO) Monoscreen NEGATIVE (NEGATIVE) Influenza Type A Ag (NEGATIVE) Influenza Type B Ag (NEGATIVE) RSV (PCR) (NEGATIVE) SARS-CoV-2 (PCR) (NEGATIVE) 05/15/23 05/15/23 Range/Units 10:00 10:00 WBC (4.0-10.5) x10^3/uL RBC (4.1-5.4) x10^6/uL Hgb (12.0-16.0) g/dL Hct (35-47) % MCV (78-100) fL MCH (26-32) pg MCHC (32-36) g/dL RDW (11.5-14.0) % Plt Count (150-450) x10^3/uL MPV (7.5-11.0) fL Gran % (36.0-66.0) % Immature Gran % (Auto) (0.00-0.4) % Nucleat RBC Rel Count (0.00-0.1) % Eos # (Auto) (0-0.5) x10^3/uL Immature Gran # (Auto) (0.00-0.03) x10^3u/L Absolute Lymphs (auto) (1.0-4.6) x10^3/uL Absolute Monos (auto) (0.0-1.3) x10^3/uL Absolute Nucleated RBC (0.00-0.01) x10^3u/L Lymphocytes % (24.0-44.0) % Monocytes % (0.0-12.0) % Eosinophils % (0.00-5.0) % Basophils % (0.0-0.4) % Absolute Granulocytes (1.4-6.9) x10^3/uL Basophils # (0-0.4) x10^3/uL Sodium 139 (135-145) mmol/L Potassium 4.8 (3.5-5.1) mmol/L Chloride 105 (98-107) mmol/L Carbon Dioxide 24 (22-30) mmol/L Anion Gap 14.6 (5-15) MEQ/L BUN 26 H (7-17) mg/dL Creatinine 1.46 H (0.52-1.04) mg/dL Estimated GFR 36.4 ML/MIN Glucose 228 H (74-106) mg/dL Lactic Acid (0.4-2.0) Calcium 9.0 (8.4-10.2) mg/dL Total Bilirubin 0.20 (0.2-1.3) mg/dL AST 23 (14-36) U/L ALT 13 (0-35) U/L Alkaline Phosphatase 84 (38-126) U/L Troponin I (0.000-0.034) ng/mL Serum Total Protein 6.3 (6.3-8.2) g/dL Albumin 3.7 (3.5-5.0) g/dL Amylase 43 (30-110) U/L Lipase 57 (23-300) U/L Free T4 1.39 (0.78-2.19) ng/dL TSH 3rd Generation 0.059 L (0.47-4.68) mIU/L Urine Color (Yellow) Urine Appearance (Clear) Urine pH (4.6-8.0) Ur Specific [place] (1.005-1.030) Urine Protein (Negative) Urine Glucose (UA) (Negative) mg/dL Urine Ketones (Negative) Urine Blood (Negative) Urine Nitrite (Negative) Urine Bilirubin (Negative) Urine Urobilinogen (0.2) mg/dL Ur Leukocyte Esterase (Negative) U Hyaline Cast (Auto) (0-2) /LPF Urine Microscopic RBC (0-5) /HPF Urine Microscopic WBC (0-5) /HPF Ur Epithelial Cells (None Seen) /HPF Urine Bacteria (None Seen) /HPF Urine Culture Reflexed (NO) Monoscreen (NEGATIVE) Influenza Type A Ag (NEGATIVE) Influenza Type B Ag (NEGATIVE) RSV (PCR) (NEGATIVE) SARS-CoV-2 (PCR) (NEGATIVE) - Progress Progress: improved, re-examined Air Movement: good Progress Note: 05/15/23 10:43 This patient's medical issue is 1 of moderate complexity. Level complex in the workup performed is based on review of the patient's past medical history, review of the patient's medication list, review the patient drug allergy list, history present illness and physical findings on examination. This patient's workup includes placement of intravenous line, infusion of low rate normal s anna solution, CBC, CMP, viral swabs, monotest, urinalysis, CT scan of the abdomen pelvis, CT scan of the head, twelve-lead EKG, troponin level. 05/15/23 11:19 CT scan of the head without contrast was interpreted by the radiologist. It was compared to a similar study dated 09/08/2021. 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 CT scan of the abdomen pelvis without contrast shows new right colon fecal stasis. There is a hiatal hernia with partial intrathoracic stomach. 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 There is aortoiliac calcifications without abdominal aortic aneurysm. 05/15/23 12:15 I interpreted the patient's laboratory data results. The patient has anemia of unknown origin, urinary tract infection as well as hyper thyroidism. We will treat her urinary tract infection today with 1 g of Rocephin intravenously followed by out patient prescription remotely being sent to her pharmacy for Cipro 500 mg orally twice a day. We are still waiting for the stool specimen to obtain an occult blood. We will also contact the patient's primary care provi christiano today to obtain a follow-up appointment in the next 2 to 3 days. Blood Culture(s) Obtained: Yes Counseled pt/family regarding: lab results, diagnosis, rad results Medical Desision Making - Diagnostic Testing Diagnostic test were ordered, analyzed, and reviewed by me: Yes Radiological Interpretation: Reviewed by me, Teleradiologist Report - Risk of complications The pt has a mod risk of morbidity or mortality based on: Need for prescription drug management - Departure Departure Disposition: Home Clinical Impression: Anemia, UTI (urinary tract infection), Hyperthyroidism Condition: Stable Critical Care Time: No Referrals: ANJELICA MORENO MD [Primary Care Provider] - Follow up/PCP as directed Additional Instructions: Drink plenty of fluids. Take your medications as prescribed. Follow-up with your primary care provider at your scheduled appointment date and time. Hold your Plavix until you are told to restart. Prescriptions: Ciprofloxacin [Cipro 500 MG] 500 mg PO BID #14 tablet
[2023-05-15] MEDS ORDERED: Zofran 4 MG/2 ML VIAL ONE (10:24)
[2023-05-15] MEDS ORDERED: Sodium Chloride 0.9% 1000 ML 1,000 ML ONE ×2 (10:24→23:00)
[2023-05-15 10:37] LABS: BASOPHIL % 0.6 % (0.0-0.4); Basophil (Absolute #) 0.05 x10^3/uL (0-0.4); Eosinophil % 2.1 % (0.00-5.0); Eosinophil (Absolute #) 0.18 x10^3/uL (0-0.5); Hemoglobin 8.6 g/dL (12.0-16.0); IMMATURE GRAN # 0.03 x10^3u/L (0.00-0.03); IMMATURE GRAN % 0.4 % (0.00-0.4); Lymphocyte (Absolute #) 2.34 x10^3/uL (1.0-4.6); Lymphocytes % 27.7 % (24.0-44.0); Mean Cell Volume 86.1 fL (78-100); Mean Corpuscular Hemoglobin 25.5 pg (26-32); Mean Corpuscular Hgb Concent. 29.7 g/dL (32-36); Mean Platelet Volume 12.5 fL (7.5-11.0); Monocyte (Absolute #) 0.76 x10^3/uL (0.0-1.3); Neutrophil % 60.2 % (36.0-66.0); Platelet Count 221 x10^3/uL (150-450); Red Blood Count 3.37 x10^6/uL (4.1-5.4); White Blood Count 8.5 x10^3/uL (4.0-10.5)
[2023-05-15] MEDS: Zofran 4 MG/2 ML VIAL IV ONE (10:42)
[2023-05-15] MEDS: Sodium Chloride 0.9% 1000 ML 1,000 ML IV SCH (10:42)
--- NOTE | 2023-05-15 10:48 | XRAY ---
Indication: Dizziness 1 month. Multiple contiguous axial images obtained through the head without contrast. Comparison: September 08, 2021 Again age-appropriate global atrophy, mild periventricular degenerative micro-ischemia, and tiny bilateral basal ganglia remote lacunar infarcts. No acute intracranial hemorrhage, abnormal extra-axial fluid collection, or mass effect. Fourth ventricle is midline without hydrocephalus. Bony calvarium intact. Visualized paranasal sinuses and mastoid air cells are clear. Impression: Continued nonacute senile brain with again remote basal ganglial lacunar infarcts.
--- NOTE | 2023-05-15 10:52 | XRAY ---
Indication: Epigastric pain. Multiple contiguous axial images obtained through the abdomen and pelvis without contrast. Comparison: September 12, 2022 Lung bases again demonstrates scattered bibasilar subsegmental atelectasis/scarring. Heart not enlarged. Again large hiatal hernia with partial intrathoracic stomach and omental fat. There is again beam artifact from right lower back epidural stimulator device. Noncontrasted stomach and bowel loops appear nonobstructed. New mild fecal debris in the descending and lesser degree transverse colon. Stable minimal sigmoid diverticulosis, polycystic appearing left kidney with faint thin calcifications, tiny splenic calcified granulomas, cholecystectomy, and hysterectomy. No free fluid/air. Remaining liver, pancreas, spleen, adrenal glands, kidneys, ureters, and bladder are unremarkable for noncontrast exam. There remains moderate scattered aortoiliac calcifications without AAA. Osseous structures intact again with osteopenia, superior T12 Schmorl node versus remote fracture, and epidural stimulator leads. Impression: 1. New right hemicolon fecal stasis. 2. Again chronic findings including hiatal hernia with partial intrathoracic stomach, beam artifact from epidural stimulator device, sigmoid diverticulosis, complex polycystic left kidney, arteriosclerotic disease, chronic bony findings, and old granulomatous disease. 3. Remaining CT abdomen/pelvis without contrast exam continues to be negative.
[2023-05-15 11:26] LABS: ALBUMIN 3.7 g/dL (3.5-5.0); ANION GAP 14.6 MEQ/L (5-15); BILIRUBIN,TOTAL 0.2 mg/dL (0.2-1.3); Creatinine 1 1.46 mg/dL (0.52-1.04); EST GLOMERULAR FILTRATION RATE 36.4 ML/MIN; Potassium 4.8 mmol/L (3.5-5.1); TSH, 3RD Generation 0.059 mIU/L (0.47-4.68); Total Protein 6.3 g/dL (6.3-8.2)
[2023-05-15 12:00] LABS: ADD URINE CULTURE? YES (NO); Appearance Clear (Clear); Bacteria Many /HPF (None Seen); Bilirubin Negative (Negative); Blood Negative (Negative); Epithelial Cells None Seen /HPF (None Seen); Glucose, Urine Negative (Negative); Ketones Negative (Negative); Leukocyte Esterase Small (Negative); Nitrite Positive (Negative); Ph 5.5 (4.6-8.0); Protein,Urine Dip Negative (Negative); Urobilinogen 0.2 mg/dL (0.2)
[2023-05-15 12:11] LABS: INFLUENZA A NEGATIVE (NEGATIVE); INFLUENZA B NEGATIVE (NEGATIVE); RESPIRATORY SYNCTIAL VIRUS NEGATIVE (NEGATIVE); SARS-CoV-2 Xpert Express NEGATIVE (NEGATIVE)
[2023-05-15 12:19] VITALS: O2SAT 94
[2023-05-15] MEDS ORDERED: ROCEPHIN 1 GM / 100 ML NaCl 1 GM/100 ML IVPB IV ONE (12:20)
[2023-05-15] MEDS: ROCEPHIN 1 GM / 100 ML NaCl 1 GM/100 ML IVPB IV ONE (12:24)
[2023-05-15 12:26] VITALS: BP 122/61; PULSE 73; RESP 19
[2023-05-15] MEDS ORDERED: NOREPINEPHRINE 8 MG/250 ML-D5W 8 MG/250 ML PLAST..BAG IV ONE (22:51)
== END 2023-05-15 13:26 | disposition home or self-care (01) ==
LOC: ED 09:30
DX: D64.9 Anemia, unspecified (principal); N39.0 Urinary tract infection, site not specified; E05.90 Thyrotoxicosis, unspecified without thyrotoxic crisis or storm; R42 Dizziness and giddiness; R51.9 Headache, unspecified; M79.10 Myalgia, unspecified site; R10.13 Epigastric pain; I10 Essential (primary) hypertension; E11.9 Type 2 diabetes mellitus without complications; E78.5 Hyperlipidemia, unspecified; Z79.02 Long term (current) use of antithrombotics/antiplatelets; Z79.85 Long-term (current) use of injectable non-insulin antidiabetic drugs; Z79.899 Other long term (current) drug therapy; Z20.828 Contact with and (suspected) exposure to other viral communicable diseases
CPT/HCPCS: 0241U; 36000; 36415; 70450; 74176; 80053; 81001; 82150; 83605; 83690; 84439; 84443; 84484; 85025; 86308; 87040; 87077; 87086; 87186; 93005; 96365; 96374; 99284; J0696; J2405

== ENCOUNTER 2023-05-15 22:17 | Emergency (ER) | payer MEDICARE ==
[2023-05-15] MEDS ORDERED: Sodium Chloride 0.9% 1000 ML 1,000 ML IV SCH (22:30)
[2023-05-15] MEDS ORDERED: Sodium Chloride 0.9% 1000 ML 1,000 ML ONE (22:30)
[2023-05-15] MEDS ORDERED: EPINEPHRINE ABBOJECT 1 MG/10 ML IV ONE ×5 (22:35→22:50)
[2023-05-15] MEDS ORDERED: ATROPINE SULFATE 1MG SYR ABBOJECT IV ONE ×2 (22:48→22:53)
[2023-05-15] MEDS ORDERED: SODIUM BICARBONATE 50 MEQ/50 ML ABBOJECT IV ONE (22:48)
[2023-05-15] MEDS ORDERED: Cordarone 150 MG/3 ML Injection IV ONE (22:48)
[2023-05-15 22:50] LABS: BASOPHIL % 0.5 % (0.0-0.4); Eosinophil % 1.1 % (0.00-5.0); Hematocrit 29.9 % (35-47); IMMATURE GRAN # 0.76 x10^3u/L (0.00-0.03); Lymphocyte (Absolute #) 8.75 x10^3/uL (1.0-4.6); Lymphocytes % 46.4 % (24.0-44.0); Mean Cell Volume 95.5 fL (78-100); Mean Corpuscular Hemoglobin 25.6 pg (26-32); Mean Corpuscular Hgb Concent. 26.8 g/dL (32-36); Mean Platelet Volume 12.2 fL (7.5-11.0); Monocyte (Absolute #) 2.15 x10^3/uL (0.0-1.3); Monocytes % 11.4 % (0.0-12.0); NUCLEATED RBC # 0.17 x10^3u/L (0.00-0.01); NUCLEATED RBC % 0.9 % (0.00-0.1); Neutrophil % 36.6 % (36.0-66.0); Platelet Count 145 x10^3/uL (150-450); Red Blood Count 3.13 x10^6/uL (4.1-5.4); Red Cell Distribution Width 17.4 % (11.5-14.0); White Blood Count 18.9 x10^3/uL (4.0-10.5)
--- NOTE | 2023-05-15 22:51 | ERPHSYRPT ---
- History of Present Illness Time Seen by Provider: 05/15/23 22:26 Source: patient Exam Limitations: no limitations Physician History: Patient is a 77-year-old female presents to our ED via EMS for evaluation of fall, bradycardia and hypotension. Patient was in our ED earlier today for syncopal episode. Patient patient was discharged home with a diagnosis of urinary tract infection. Patient went home and fell off of her couch and complained of some discomfort to her upper back and both arms. No fever. No nausea no vomiting no diarrhea no rash. No obvious head trauma. Symptoms are moderate in intensity. No specific worsening or improving factors. Patient is unresponsive at this time and unable to provide additional information to his HPI. Most of the information was obtained by the paramedics. Portions of this note were created with voice recognition technology. There may be grammatical, spelling, punctuation or sound alike errors Timing/Duration: today Severity: moderate Modifying Factors: Improves With: nothing Associated Symptoms: denies symptoms Allergies/Adverse Reactions: No Known Drug Allergies Allergy (Verified 05/15/23 09:45) Home Medications: Isosorbide Mononitrate 30 mg [Imdur 30 MG] 30 mg PO DAILY 03/04/16 [History] Metoprolol Tartrate 25 mg [Lopressor 25MG Tab] 25 mg PO DAILY 03/04/16 [History] Verapamil HCl Sr [Isoptin Sr] 240 mg PO DAILY 03/04/16 [History] Furosemide [Lasix] 20 mg PO DAILY 08/18/21 [History] Pregabalin 75 mg PO TID 08/18/21 [History] Clopidogrel Bisulfate [PLAVIX Tablet] 75 mg PO DAILY 09/08/21 [History] Hydrocodone/Acetaminophen [Hydrocodone-Acetamin 10-325 mg] 10 mg PO Q6H PRN 09/08/21 [History] PANTOPRAZOLE 40 mg Tablet [Protonix 40MG Tablet] 40 mg PO DAILY 09/08/21 [History] Diphenoxylate HCl/Atropine [Diphenoxylate-Atrop 2.5-0.025] 1 tab PO UD 11/08/22 [History] Exenatide Microspheres [Bydureon Bcise] 1 amp SQ UD 11/08/22 [History] Rosuvastatin Calcium 20 mg PO UD 11/08/22 [History] Lactobacillus Rhamnosus GG [Culturelle] 1 each PO DAILY 11/13/22 [History] Hx Tetanus, Diphtheria Vaccination/Date Given: No Hx Influenza Vaccination/Date Given: Yes Hx Pneumococcal Vaccination/Date Given: Yes - Review of Systems All Other Systems: Unable due to condition - Past Medical History Pertinent Past Medical History: Yes Neurological History: Stroke ENT History: No Pertinent History Cardiac History: Arrhythmia, Coronary Artery Disease, High Cholesterol, Hypertension Respiratory History: Bronchitis Endocrine Medical History: Diabetes Type II, Hypothyroidism Musculoskeletal History: Osteoarthritis, Other GI Medical History: GERD History: Other Psycho-Social History: No Pertinent History Female Reproductive Disorders: No Pertinent History Other Medical History: PT. HAD 3 STENTS 5-6 YEARS AGO. PT. REPORTS SHE HAS ANGINA OCCASIONALLY. PT. SUSTAINED VERTEBRAL FXS IN 1985. HX L-SPINE OA. cyst on one of her kidneys stimulator in spine, cycst off spine rt ankle - Past Surgical History Past Surgical History: Yes Neuro Surgical History: No Pertinent History Cardiac: Cardiac Stent Respiratory: No Pertinent History Gastrointestinal: Cholecystectomy Musculoskeletal: Orthopedic Surgery Female Surgical History: Hysterectomy Other Surgical History: rt ankle,back stimulator,spine cyst removed - Social History Smoking Status: Former smoker Exposure to second hand smoke: No Drug Use: none Patient Lives Alone: No - Physical Exam General Appearance: no apparent distress, alert Eye Exam: other (Pupils are fixed and dilated.) Ears, Nose, Throat Exam: normal ENT inspection, TMs normal, pharynx normal, moist mucous membranes Neck Exam: normal inspection, non-tender, supple, full range of motion Respiratory Exam: normal breath sounds, airway intact, No respiratory distress Cardiovascular Exam: regular rate/rhythm, normal heart sounds Gastrointestinal/Abdomen Exam: soft, normal bowel sounds, No tenderness, No mass Back Exam: normal inspection, normal range of motion, No CVA tenderness, No vertebral tenderness Extremity Exam: normal inspection, normal range of motion, pelvis stable Neurologic Exam: No motor deficits Skin Exam: dry, pale, No rash Lymphatic Exam: No adenopathy SpO2: 96 O2 Delivery: Nasal Cannula (4 L nasal cannula) - Course Nursing assessment & vital signs reviewed: Yes Ordered Tests: Active Orders 24 hr Category Date Time Status Adoption Specialist STAT Care 05/15/23 22:25 Active EKG-ER Only STAT Care 05/15/23 22:23 Active IV Insertion STAT Care 05/15/23 22:23 Active Pulse Oximetry (ED) STAT Care 05/15/23 22:23 Active CBC W DIFF Stat Lab 05/15/23 22:40 Completed CMP Stat Lab 05/15/23 22:40 Completed TROPONIN Q4H Lab 05/15/23 22:40 Completed Intubate Patient STAT RT 05/15/23 23:29 Completed Ventilator Management STAT RT 05/15/23 23:29 Completed Medication Summary Generic Name Dose Route Start Last Admin Trade Name Freq PRN Reason Stop Dose Admin Sodium Chloride 1,000 mls @ 100 mls/hr 05/15/23 22:30 Sodium Chloride 0.9% 1000 Ml IV 06/14/23 22:29 .Q10H DAE Lab/Rad Data: Laboratory Result Diagrams 05/15/23 22:40 05/15/23 22:40 Laboratory Results 05/15/23 05/15/23 05/15/23 Range/Units 22:40 22:40 22:40 WBC 18.9 H (4.0-10.5) x10^3/uL RBC 3.13 L (4.1-5.4) x10^6/uL Hgb 8.0 L (12.0-16.0) g/dL Hct 29.9 L (35-47) % MCV 95.5 D (78-100) fL MCH 25.6 L (26-32) pg MCHC 26.8 L (32-36) g/dL RDW 17.4 H (11.5-14.0) % Plt Count 145 L D (150-450) x10^3/uL MPV 12.2 H (7.5-11.0) fL Gran % 36.6 (36.0-66.0) % Immature Gran % (Auto) 4.0 H (0.00-0.4) % Nucleat RBC Rel Count 0.9 H (0.00-0.1) % Eos # (Auto) 0.20 (0-0.5) x10^3/uL Immature Gran # (Auto) 0.76 H (0.00-0.03) x10^3u/L Absolute Lymphs (auto) 8.75 H (1.0-4.6) x10^3/uL Absolute Monos (auto) 2.15 H (0.0-1.3) x10^3/uL Absolute Nucleated RBC 0.17 H (0.00-0.01) x10^3u/L Lymphocytes % 46.4 H (24.0-44.0) % Monocytes % 11.4 (0.0-12.0) % Eosinophils % 1.1 (0.00-5.0) % Basophils % 0.5 (0.0-0.4) % Absolute Granulocytes 6.90 (1.4-6.9) x10^3/uL Basophils # 0.10 (0-0.4) x10^3/uL Sodium 137 (135-145) mmol/L Potassium 5.2 H (3.5-5.1) mmol/L Chloride 108 H (98-107) mmol/L Carbon Dioxide 10 L* (22-30) mmol/L Anion Gap 24.0 H (5-15) MEQ/L BUN 26 H (7-17) mg/dL Creatinine 1.53 H (0.52-1.04) mg/dL Estimated GFR 34.4 ML/MIN Glucose 446 H (74-106) mg/dL Calcium 7.8 L (8.4-10.2) mg/dL Total Bilirubin 0.10 L (0.2-1.3) mg/dL AST 239 H (14-36) U/L ALT 117 H (0-35) U/L Alkaline Phosphatase 78 (38-126) U/L Troponin I 0.031 (0.000-0.034) ng/mL Serum Total Protein 5.4 L (6.3-8.2) g/dL Albumin 3.1 L (3.5-5.0) g/dL - Progress Progress Note: 77-year-old female presents to our ED via EMS for evaluation of back pain. And route patient became bradycardic and unresponsive. Atropine administered. Patient was unresponsive upon arrival to our ED. Shortly thereafter pulses were lost and CPR was initiated. We applied the Wolf chest compression machine to assist with CPR. Patient was intubated by respiratory therapy. ACLS initiated. Standard ACLS procedure continued for approximately 34 minutes. Patient was pronounced at 11:05 PM. Please see code sheet for details. Family updated. Patient was intubated without induction or sedation. Patient had no corneal or gag reflexes. We are in the process of contacting patient's primary care sasha glass for an update. Portions of this note were created with voice recognition technology. There may be grammatical, spelling, punctuation or sound alike errors Complexity problem addressed is high, threat to bodily function Critical care time is 1 hour. Immediate action required to prevent further deterioration. However in spite of our efforts patient Complaints of data reviewed and analyzed is moderate. Test ordered test reviewed. Results analyzed and correlated clinically with history and physical exam. Risk of complication and or risk of morbidity/mortality of patient management is high. Disposition, patient 05/15/23 23:20 Counseled pt/family regarding: diagnosis - Departure Departure Disposition: Clinical Impression: Cardiovascular collapse, Lactic acidosis Condition: Critical Care Time: Yes Critical Care Time(excluding separately billable procedures): Critical 30-74 mins Referrals: ANJELICA MORENO MD [Primary Care Provider] - Follow up/PCP as directed
[2023-05-15 23:03] LABS: ALBUMIN 3.1 g/dL (3.5-5.0); BILIRUBIN,TOTAL 0.1 mg/dL (0.2-1.3); Calcium 7.8 mg/dL (8.4-10.2); Creatinine 1 1.53 mg/dL (0.52-1.04); EST GLOMERULAR FILTRATION RATE 34.4 ML/MIN; Potassium 5.2 mmol/L (3.5-5.1); Total Protein 5.4 g/dL (6.3-8.2)
[2023-05-16 02:41] VITALS: O2SAT 96
[2023-05-16 05:03] VITALS: PULSE 45; RESP 12; TEMP 96.2
== END 2023-05-15 23:05 | disposition expired ==
LOC: ED 22:17
DX: R57.0 Cardiogenic shock (principal); E87.20 Acidosis, unspecified; E78.5 Hyperlipidemia, unspecified; I10 Essential (primary) hypertension; E11.9 Type 2 diabetes mellitus without complications; Z79.899 Other long term (current) drug therapy
CPT/HCPCS: 31500; 36000; 36415; 80053; 84484; 85025; 92950; 93005; 93041; 94002; 94760; 99284; 99291; J0171; J0282; J0461